=== PATIENT | male | born 1945 | race Caucasian/White ===

== ENCOUNTER 2024-12-27 06:17 | Day surgery (SDC) | payer MEDICARE, OTHER, SELFPAY ==
[2024-12-27 10:01] LABS: Glucose - Point of Care 160 mg/dl (70-99)
== END 2024-12-27 10:30 | disposition home or self-care (01) ==
LOC: GI 06:17
PROVIDERS: ATTENDING PHYSICIAN Specialist
DX: I48.91 Unspecified atrial fibrillation (principal); Z53.9 Procedure and treatment not carried out, unspecified reason; Z86.0101 Personal history of adenomatous and serrated colon polyps
CPT/HCPCS: G0105; 82962; 93005

== ENCOUNTER 2024-12-27 10:30 | Emergency (ER) | payer MEDICARE, OTHER, SELFPAY ==
[2024-12-27 10:48] VITALS: BP 148/72
--- NOTE | 2024-12-27 11:33 | ED.GENMED ---
History of Present Illness
<Anne-Marie Tidwell PA-C - Last Filed: 12/27/24 16:34>
General
Chief Complaint: Heart Rate Problem
Source: patient
Exam Limitations: none
Time Seen by Provider: 12/27/24 11:12
Nursing documentation reviewed up to this point in time: agreed with
History of Present Illness
History of Present Illness:
pt is a 79 y/o M with h/o CAD with stents remotely, htn, dNIDDM
here from GI suite after being found in afib with RVR today
pt started prep yesterday evening and then again the 2nd part this morning 4 am
pt says he went to have his colonoscopy today and when they hooked him up, he was in afib
he has no history and feels no ysmptoms
he was unaware that hi HR wa elevated
no lightheadedness, vomting, cp, sob
he feels a little dehydrated
used t be on blood thinners but d/c'd
followed by dr. corea from cardiology
Past History
<Anne-Marie Tidwell PA-C - Last Filed: 12/27/24 16:34>
Past History
ED Past Medical History: CAD, HTN, Hypercholesterolemia and NIDDM
ED Past Surgical History: Cardiac and Other (Rcarotid endarterectomy)
Review of Systems
<Anne-Marie Tidwell PA-C - Last Filed: 12/27/24 16:34>
Review of Systems
Allergies reviewed?: Yes
All Other Systems: Not applicable
Phy Exam
<Anne-Marie Tidwell PA-C - Last Filed: 12/27/24 16:34>
Physical Exam
Physical Exam:
GENERAL: Alert , in no apparent distress, awake and alert and in no distress
EYE: pupils equal and reactive
NECK: Supple
ENT: o/p clr, mmm.
CARDIAC: Irregularly irregular, tachycardic
LUNGS: Clear breath sounds bilaterally, no acute respiratory distress, no wheezes/rales/rhonchi
ABDOMEN: Soft, without focal tenderness, no r/g, no cvat, normal bowel sounds
NEUROLOGICAL: Alert and oriented, no focal neuro deficits
SKIN: Warm and dry, skin intact.
MUSCULOSKELETAL: No edema, well perfused. neg yousuf's sign
PSYCH: Normal and appropriate interaction.
Scores
<Anne-Marie Tidwell PA-C - Last Filed: 12/27/24 16:34>
[id number] Score for Afib Stroke Risk
Age in Years (65=0, 65-74=1, >/=75=2): > or = 75
Sex (Female=+1): Male
Congestive Heart Failure History (Yes=+1): No
Hypertension History (Yes=+1): Yes
Stroke/TIA/Thromboembolism History (Yes=+2): No
Vascular Disease History (Yes=+1): Yes
Diabetes Mellitus (Yes=+1): Yes
Score: 5
Anticoagulation Recommendations: Recommend anticoagulation (as validated in nonvalvular fib)
<Festus Tran MD - Last Filed: 12/27/24 12:43>
[id number] Score for Afib Stroke Risk
Score: 5
Anticoagulation Recommendations: Recommend anticoagulation (as validated in nonvalvular fib)
Course
<Anne-Marie Tidwell PA-C - Last Filed: 12/27/24 16:34>
Orders/Labs/Results
Orders:
Orders
12/27/24 10:36
EKG [Electrocardiogram (*1)] Urgent
Reason for Study: Atrial Fibrillation
EKG- Treatment ONCE
12/27/24 11:32
0.9% Sodium Chloride 1000 ml [Nss] 1,000 ml IV BOLUS
CR Chest Portable - 1 View Urgent
Comment:
Reason For Exam: new onset afib rvr
Reason Study Needs to be Portable: Unable to Transport
12/27/24 11:36
Comprehensive Metabolic Panel Urgent
Magnesium Urgent
NT-proBNP Urgent
TSH Reflex To Free T4 Urgent
12/27/24 11:37
Complete Blood Count/With Diff Urgent
Diltiazem HCl [Cardizem] 10 mg IV NOW STA
12/27/24 12:31
Metoprolol [Lopressor] 25 mg PO NOW STA
12/27/24 13:29
Case Management Consult ONCE
Case Management Consult: Other
12/27/24 13:37
Electrocardiogram (*1) Urgent
Reason for Study: Abnormal EKG
EKG- Treatment ONCE
12/27/24 13:52
Case Management Consult ONCE
Case Management Consult: Discharge Planning
12/27/24 15:10
Apixaban [Eliquis] 5 mg PO NOW STA
Abnormal Lab Results
12/27/24 12/27/24
11:36 11:37
RBC 4.51 L 10^6/uL
(4.70-6.10)
MCH 32.8 H pg
(27.0-31.0)
Absolute Neuts (auto) 8.4 H 10^3/uL
(1.4-6.5)
Absolute Lymphs (auto) 0.7 L 10^3/uL
(1.2-3.4)
Neutrophils % 88.7 H %
(42.2-75.2)
Lymphocytes % 7.6 L %
(20.5-51.1)
BUN 25 H mg/dl
(9-20)
Glucose 157 H mg/dl
(70-99)
Albumin 5.1 H g/dl
(3.5-5.0)
12/27/24 11:37
12/27/24 11:36
Vital Signs
Initial and Last Documented VS:
Initial Vital Signs
Temp Pulse Resp BP Pulse Ox
36.9 C 148 18 148/72 96
12/27/24 10:48 12/27/24 10:48 12/27/24 10:48 12/27/24 10:48 12/27/24 10:48
Last Documented Vital Signs
Temp Pulse Resp BP Pulse Ox
36.9 C 96 21 120/83 94
12/27/24 10:48 12/27/24 14:45 12/27/24 14:45 12/27/24 14:00 12/27/24 14:45
<Festus Tran MD - Last Filed: 12/27/24 12:43>
Orders/Labs/Results
Orders:
Orders
12/27/24 10:36
EKG [Electrocardiogram (*1)] Urgent
Reason for Study: Atrial Fibrillation
EKG- Treatment ONCE
12/27/24 11:32
0.9% Sodium Chloride 1000 ml [Nss] 1,000 ml IV BOLUS
CR Chest Portable - 1 View Urgent
Comment:
Reason For Exam: new onset afib rvr
Reason Study Needs to be Portable: Unable to Transport
12/27/24 11:36
Comprehensive Metabolic Panel Urgent
Magnesium Urgent
NT-proBNP Urgent
TSH Reflex To Free T4 Urgent
12/27/24 11:37
Complete Blood Count/With Diff Urgent
Diltiazem HCl [Cardizem] 10 mg IV NOW STA
12/27/24 12:31
Metoprolol [Lopressor] 25 mg PO NOW STA
12/27/24 13:29
Case Management Consult ONCE
Case Management Consult: Other
12/27/24 13:37
Electrocardiogram (*1) Urgent
Reason for Study: Abnormal EKG
EKG- Treatment ONCE
12/27/24 13:52
Case Management Consult ONCE
Case Management Consult: Discharge Planning
12/27/24 15:10
Apixaban [Eliquis] 5 mg PO NOW STA
Abnormal Lab Results
12/27/24 12/27/24
11:36 11:37
RBC 4.51 L 10^6/uL
(4.70-6.10)
MCH 32.8 H pg
(27.0-31.0)
Absolute Neuts (auto) 8.4 H 10^3/uL
(1.4-6.5)
Absolute Lymphs (auto) 0.7 L 10^3/uL
(1.2-3.4)
Neutrophils % 88.7 H %
(42.2-75.2)
Lymphocytes % 7.6 L %
(20.5-51.1)
BUN 25 H mg/dl
(9-20)
Glucose 157 H mg/dl
(70-99)
Albumin 5.1 H g/dl
(3.5-5.0)
12/27/24 11:37
12/27/24 11:36
Vital Signs
Initial and Last Documented VS:
Initial Vital Signs
Temp Pulse Resp BP Pulse Ox
36.9 C 148 18 148/72 96
12/27/24 10:48 12/27/24 10:48 12/27/24 10:48 12/27/24 10:48 12/27/24 10:48
Last Documented Vital Signs
Temp Pulse Resp BP Pulse Ox
36.9 C 96 21 120/83 94
12/27/24 10:48 12/27/24 14:45 12/27/24 14:45 12/27/24 14:00 12/27/24 14:45
<Anne-Marie Tidwell PA-C - Last Filed: 12/27/24 16:34>
MDM/Problems Addressed
Differential Diagnosis Includes:
afib rvr, dehydration
MDM/Problems Addressed:
79 y/o M
ho cad with stents, htn, hld, NIDDM
here with new onset afib no history after coloboscopy prep
no cp, sob
no lightheadedness
unknown onset
looks a little dry
othrwsie stable
no ischemic change son EKG
bnp normal
lytes ok
seen by dr tran
given 10 mg iv diltiazem with adequtae rate control
d/w dr. yanes who recommended metoprolol 25 mg tid and f/u in the office
Patient ambulated in the department well with a heart rate in the low 100s and no symptoms. Repeat EKG show note Dr. Tran. Case management consult placed regarding the Xarelto versus Eliquis choice. Ultimately plan on discharge with
anticoagulation and the metoprolol and close cardiology follow-up
Eliquis sent to pharmacy, first dose here
<Anne-Marie Tidwell PA-C - Last Filed: 12/27/24 16:34>
*Critical Care Note
Total Time (30-74mins, 75-104mins- exclusive of procedures): Not Applicable
ED Attending Note
<Anne-Marie Tidwell PA-C - Last Filed: 12/27/24 16:34>
-
Portions of this chart may have been created with voice recognition software.� Occasional wrong word or��sound alike� substitutions may have occurred due to the inherent limitations of voice recognition software.
<Festus Trna MD - Last Filed: 12/27/24 12:43>
ED Attending Note
Patient seen and examined by attending physician: Yes
I performed the substantive portion of visit, reviewed & personally made and approve the management plan that is documented in note by myself or GERARDO.: Yes
ED Attending Note:
Patient prepping for colonoscopy. Upon arrival was noted to be in A-fib RVR. Asymptomatic. No chest pain shortness of breath or other symptoms. Unknown onset. History of CAD. Currently on aspirin only
On exam patient is nontoxic in no distress. Tacky and irregular no murmur. Lungs clear and equal. Abdomen soft and nontender. Warm and dry. Grossly nonfocal. Perfusing well.
EKG A-fib RVR. Monitor A-fib RVR.
Rate control and anticoagulation warranted. Discussion on inpatient versus outpatient management with cardiology. Also discussed whether to continue aspirin with the DOAC
Discharge Plan
Departure
Patient Disposition: Home (Routine Discharge)
Date of Disposition: 12/27/24
Time of Disposition: 15:09
Patient with high blood pressure during this ER visit?: No
Condition: Fair
Discharge Problem:
Atrial fibrillation with rapid ventricular response
Instructions: Atrial Fibrillation (DC)
Prescriptions:
New
Eliquis 5 mg tablet
5 mg PO BID Qty: 60 0RF
metoprolol tartrate 25 mg tablet
25 mg PO TID Qty: 30 0RF
Referrals:
UNKNOWN - PT NOT,INTERVIEWE [Unknown Provider] -
Activity Restrictions/Additional Instructions:
You have a new abnormal heart rhythm called atrial fibrillation. You need to take your blood thinner daily. Try to avoid falling and hitting her head and if you do so please return to the ER for evaluation. If you start bleeding from your nose,
rectum, urine please come and get checked.
For better rate control try metoprolol tartrate 25 mg 3 times a day. You can take your blood pressure twice a day. If it is running low, 110 or lower systolic you can hold your amlodipine until you see cardiology. Please follow-up with them, they
should be reaching out for evaluation within the next couple of days. If you do not hear from them please call them.
take eliquis twice a day 5 mg
Interventions
Interventions:
*Risk Screen - Suicide Last Done: 12/27/24 10:48
*General Assessment Last Done: 12/27/24 10:48
*Neglect/Abuse Screening Last Done: 12/27/24 10:48
ED- Fall Risk Assessment Last Done: 12/27/24 15:35
*ED COVID-19 Vaccine History Last Done: 12/27/24 10:48
*Nursing Disposition Last Done: 12/27/24 15:35
ED- Cardiac Assessment Last Done: 12/27/24 12:23
ED- Pulmonary Assessment Last Done: 12/27/24 12:23
Discharge Date and Time
Discharge Date/Time: 12/27/24 15:35
Print Language: BELGIAN
[2024-12-27] MEDS: NSS 1000 IV (11:34)
[2024-12-27 11:45] LABS: % Basophils 0.3 % (0-2); % Eosinophils 0.2 % (0-6); % Immature Granulocytes 0.3 % (0-0.5); % Lymphocytes 7.6 % (20.5-51.1); % Monocytes 2.9 % (1.7-9.3); % Neutrophils 88.7 % (42.2-75.2); Absolute Lymphocytes 0.7 10^3/uL (1.2-3.4); Absolute Monocytes 0.3 10^3/uL (0.1-0.6); Absolute Neutrophils 8.4 10^3/uL (1.4-6.5); Hematocrit 42.2 % (39.0-52.0); Hemoglobin 14.8 g/dL (13.0-18.0); Mean Corp Hgb Conc. 35.1 g/dL (33.0-37.0); Mean Corpuscular Hgb 32.8 pg (27.0-31.0); Mean Corpuscular Volume 93.6 fL (80.0-94.0); Nucleated Red Blood Cells % 0 % (-); Platelet Count 222 10^3/uL (130-400); Red Blood Cell Count 4.51 10^6/uL (4.70-6.10); Red Cell Dist. Width 12.1 % (11.5-14.5); White Blood Cell Count 9.4 10^3/uL (4.8-10.8)
[2024-12-27 12:03] LABS: ALT (SGPT) 48 U/L (0-50); AST (SGOT) 35 U/L (17-59); Albumin 5.1 g/dl (3.5-5.0); Alkaline Phosphatase 40 U/L (38-126); Blood Urea Nitrogen 25 mg/dl (9-20); Calcium 9.7 mg/dl (8.4-10.2); Carbon Dioxide 23 mmol/L (22-30); Chloride 104 mmol/L (98-107); Glucose 157 mg/dl (70-99); Magnesium 2.1 mg/dl (1.6-2.3); Potassium 4.3 mmol/L (3.5-5.1); Sodium 140 mmol/L (135-145); Total Bilirubin 1.1 mg/dl (0.2-1.3); Total Protein 7.4 g/dl (6.3-8.2); eGFR > 60.00
[2024-12-27 12:09] LABS: NT-proBNP 108 pg/ml
[2024-12-27] MEDS: CARDIZEM 10 MG IV (12:10)
[2024-12-27] MEDS: LOPRESSOR 25 MG PO (12:36)
[2024-12-27 12:55] LABS: TSH Reflex To Free T4 1.55 uIU/ml (0.47-4.68)
[2024-12-27 13:00] VITALS: BP 128/88
[2024-12-27 13:39] VITALS: BP 146/74
[2024-12-27 14:00] VITALS: BP 120/83
[2024-12-27] MEDS: ELIQUIS 5 MG PO (15:16)
--- NOTE | 2024-12-27 15:26 | CM ---
CM following re: discharge planning.
CM consulted to check the aponte for Eliquis 5mg BID or Xarelto 10 mg Daily. [facility]ist requested MD magdiel sent. Eliquis 5mg BID aponte checked. $333.41 per month. Xarelto 10 mg - 331.42 per month.
Pt requested Eliquis and he stated he will afford the aponte and after meeting deductible will be 0.00 co-pay. Free 30 day coupon for Eliquis provided.
Reviewed pt's chart, met with pt and pt's spouse Annie at bedside.
Pt is a 79 year old male, admitted with primary concerns of Atrial fibrillation with rapid ventricular response.
Pt reports he lives with spouse 2SH, 1 step to enter, has 3 supportive children. Pt described himself as independent in all areas [employer]. No DME, VN or SNF history.
PCP: Mariah Cornelius
Pharmacy: [facility].
D/C plan: home with anticipated no needs. Spouse to transport.
No after care VN services indicated.
== END 2024-12-27 15:35 | disposition home or self-care (01) ==
LOC: EMR 10:30
PROVIDERS: Physician Assistant; EMERGENCY PHYSICIAN Emergency Medicine; FAMILY PHYSICIAN Family Medicine
DX: I48.91 Unspecified atrial fibrillation (principal); I25.10 Atherosclerotic heart disease of native coronary artery without angina pectoris; I10 Essential (primary) hypertension; E11.9 Type 2 diabetes mellitus without complications; E78.00 Pure hypercholesterolemia, unspecified; Z79.01 Long term (current) use of anticoagulants; Z95.5 Presence of coronary angioplasty implant and graft
CPT/HCPCS: 99283; 96374; 96361; 71045; 80053; 83735; 83880; 84443; 85025; 93005

== ENCOUNTER → 2025-01-15 09:14 | Outpatient (REF) | payer MEDICARE, OTHER, SELFPAY | LOC: HWRCS 09:14 | PROVIDERS: ATTENDING PHYSICIAN Nurse Practitioner; FAMILY PHYSICIAN Family Medicine | DX: I25.10 Atherosclerotic heart disease of native coronary artery without angina pectoris (principal); I35.0 Nonrheumatic aortic (valve) stenosis | CPT/HCPCS: 93306 ==

== ENCOUNTER 2025-01-30 06:35 | Inpatient (IN) | payer MEDICARE, OTHER, SELFPAY ==
[2025-01-30] VITALS (26 sets, daily range): BP systolic 94–173; BP diastolic 53–98; PULSE 112–128; BMI 24.8; BMI 23.7
--- NOTE | 2025-01-30 02:58 | ED.SKININJ ---
HPI-Injury
General
Chief Complaint: Head Injury
Source: patient and spouse
Exam Limitations: none
Time Seen by Provider: 01/30/25 02:14
Nursing documentation reviewed up to this point in time: agreed with
History of Present Illness-Injury
Is pt an associate of [facility]?: Yes
Initial Injury comments:
Pleasant 79-year-old male presents with fall. Patient has been having URI symptoms for the several days. He took Mucinex DM this evening. He went to bed. He noted. Up to go to the bathroom. He states he felt fine walking to the bathroom. He
had a large bowel movement consistent with loose stools. He states that he passed out. He hit his head and woke up on the floor. Patient is on Eliquis. He suffered an abrasion to his right forehead. He states that that is the only pain that he
has. He does feel dehydrated. Denies current nausea or vomiting.
Past History
Past History
ED Past Medical History: CAD, HTN, Hypercholesterolemia and NIDDM
ED Past Surgical History: Cardiac and Other (Rcarotid endarterectomy)
Review of Systems
Review of Systems
Allergies reviewed?: Yes
All Other Systems: ROS reviewed and negative except as documented in HPI and ROS
Constitutional: Reports no symptoms
EENT: Reports no symptoms
Respiratory: Reports other (Syncope)
Cardiac: Reports no symptoms
ABD/GI: Reports nausea and diarrhea
: Reports no symptoms
Musculoskeletal: Reports no symptoms
Skin: Reports no symptoms
Neurological: Reports no symptoms
Endocrine: Reports no symptoms
Hematologic/Lymphatic: Reports no symptoms
Psychiatric: Reports no symptoms
Phy Exam
General Physical Exam
General Presentation: well appearing and no apparent distress
General Skin: warm and dry
General Habitus: normal
General Mental: alert
General Hydration: appears well hydrated
ENT Exam
ENT Exam: EOMI, pharynx normal, neck supple and normocephalic
Eye Exam
Eye Exam: PERRL, cornea clear and conjunctiva normal
Cardiovascular Exam
Cardiovascular Exam: regular rate/rhythm, no edema, no murmur and normal peripheral pulses
Pulmonary Exam
Pulmonary Exam: lungs clear, no respiratory distress, no rales, no crackles, no rhonchi, no stridor, no wheezing and no cough
Gastrointestinal Exam
Gastrointestinal Exam: normal bowel sounds, non tender, soft, no organomegaly, no pulsatile mass and non distended
Neurological Exam
Neurological Exam: alert, oriented x3, no motor deficits and speech normal
Musculoskeletal Exam
Musculoskeletal Exam: full ROM and no edema
Skin Exam
Skin Exam: normal color, warm/dry, no petechia and other (Abrasion to right forehead)
Psychiatric Exam
Psychiatric Exam: normal mood/affect
Course
Orders/Labs/Results
Orders:
Orders
01/30/25 02:22
CT Cervical Spine W/o Iv Contr Urgent
Comment:
Reason For Exam: fall on thinner
CT Head W/o Iv Contrast Urgent
Comment:
Reason For Exam: fall on thinner
01/30/25 02:57
0.9% Sodium Chloride 1000 ml [Nss] 1,000 ml IV BOLUS
01/30/25 03:03
Complete Blood Count/With Diff Urgent
Comprehensive Metabolic Panel Urgent
01/30/25 03:41
Orthostatic VS- Treatment ONCE
01/30/25 03:42
Electrocardiogram (*1) Urgent
Reason for Study: Syncope
EKG- Treatment ONCE
01/30/25 04:16
Urinalysis Reflex To Culture Urgent
Date Specimen was Collected: 01/30/25
Time Specimen was Collected: 04:15
Urine Microscopic Reflex Cult Urgent
01/30/25 04:29
Electrocardiogram (*1) Urgent
Reason for Study: Atrial Fibrillation
EKG- Treatment ONCE
01/30/25 04:33
Diltiazem HCl [Cardizem] 20 mg IV NOW STA
01/30/25 04:45
Diltiazem 125 mg/125 ml Nss [Cardizem] 125 mg in 125 ml IV PER PROTOCOL
Initial dose in mg/hr, then titrate:: 5
Titrate to keep:: Heart rate 80-100 bpm
Titrate by mg/hr:: 5 mg/hr
Frequency of titrations (minutes):: 15
Maximum dose in mg/hr:: 15
Abnormal Lab Results
01/30/25 01/30/25
03:03 04:16
RBC 4.16 L 10^6/uL
(4.70-6.10)
Hct 38.7 L %
(39.0-52.0)
MCH 33.2 H pg
(27.0-31.0)
Absolute Lymphs (auto) 0.8 L 10^3/uL
(1.2-3.4)
Absolute Monos (auto) 0.7 H 10^3/uL
(0.1-0.6)
Lymphocytes % 12.9 L %
(20.5-51.1)
Monocytes % 11.5 H %
(1.7-9.3)
BUN 27 H mg/dl
(9-20)
Glucose 146 H mg/dl
(70-99)
ALT 54 H U/L
(0-50)
Urine Ketones 1+ A
(Negative)
Ur Occult Blood Reflex 1+ A
(Negative)
Urine Albumin (Reflex) 2+ A
(Neg - Trace)
01/30/25 03:03
01/30/25 03:03
Vital Signs
Initial and Last Documented VS:
Initial Vital Signs
Temp Pulse Resp BP Pulse Ox
98.4 F 55 16 145/55 95
01/30/25 01:53 01/30/25 01:53 01/30/25 01:53 01/30/25 01:53 01/30/25 01:53
Last Documented Vital Signs
Temp Pulse Resp BP Pulse Ox
98.4 F 126 13 124/74 94
01/30/25 01:53 01/30/25 05:00 01/30/25 05:00 01/30/25 05:00 01/30/25 05:00
*Critical Care Note
Total Time (30-74mins, 75-104mins- exclusive of procedures): Not Applicable
Update Note
Update Note:
CT HEAD AND CERVICAL
IMPRESSION:
HEAD:
No acute hemorrhage, herniation, or hydrocephalus. Moderate periventricular hypodensities, likely the sequela of small vessel ischemic disease.
No calvarial fracture.
The visualized paranasal sinuses and mastoid air cells are clear.
CERVICAL:
No acute fracture or traumatic malalignment.
No significant prevertebral edema.
Multilevel degenerative changes of the cervical spine. If there are persistent neurologic symptoms, consider MRI for further characterization.
Case finalized on Jan 30 2025 3:20AM ET
Patient got up to go to the bathroom with the assistance of nursing. He returned in A-fib with RVR. Heart rate was in the 120s to 140s. Patient felt lightheaded and dizzy EKG was performed. Patient given Cardizem.
Patient has been in and out of atrial fibrillation. He still feels lightheaded when seated. Given that his symptoms returned as soon as he stood up, I do not feel that it is safe to send him home. I feel that he needs to continue on the Cardizem
and get IV hydration.
Patient to be admitted to the hospitalist service.
ED Attending Note
-
Portions of this chart may have been created with voice recognition software.� Occasional wrong word or��sound alike� substitutions may have occurred due to the inherent limitations of voice recognition software.
Discharge Plan
Departure
Patient Disposition: Admit
Date of Disposition: 01/30/25
Time of Disposition: 05:19
Admit to: Telemetry
Presentation/result/management discussed w/ accepting MD/DO: Hospitalist
Condition: Good
Discharge Problem:
Syncope and collapse, Paroxysmal A-fib, Acute dehydration, Abrasion of scalp, Closed head injury
Prescriptions:
No Action
Eliquis 5 mg tablet
5 mg PO BID Qty: 60 0RF
metformin 500 mg Tablet
500 mg PO DAILY
atorvastatin 80 mg Tablet
80 mg PO DAILY
amlodipine 5 mg Tablet
5 mg PO BID
terazosin 2 mg Capsule
2 mg PO DAILY
candesartan 32 mg Tablet
32 mg PO DAILY
cholecalciferol (vitamin D3) [Vitamin D3] 25 mcg (1,000 unit) Tablet
25 mcg PO DAILY
aspirin 81 mg Capsule
81 mg PO BID
metoprolol tartrate 25 mg tablet
25 mg PO BID
Referrals:
Alejandro Cornelius MD [Family Provider] -
Interventions
Interventions:
*Risk Screen - Suicide Last Done: 01/30/25 01:53
*General Assessment Last Done: 01/30/25 02:14
*Neglect/Abuse Screening Last Done: 01/30/25 01:53
*ED- Fall Risk Assessment Last Done: 01/30/25 01:53
*ED COVID-19 Vaccine History Last Done: 01/30/25 01:53
ED-Skin Assessment Last Done: 01/30/25 02:13
Discharge Date and Time
Print Language: JAPANESE
[2025-01-30] MEDS: NSS 1000 IV ×2 (03:06→05:25)
[2025-01-30 03:18] LABS: % Basophils 0.3 % (0-2); % Eosinophils 1.6 % (0-6); % Immature Granulocytes 0.3 % (0-0.5); % Lymphocytes 12.9 % (20.5-51.1); % Monocytes 11.5 % (1.7-9.3); % Neutrophils 73.4 % (42.2-75.2); Absolute Eosinophils 0.1 10^3/uL (0-0.7); Absolute Lymphocytes 0.8 10^3/uL (1.2-3.4); Absolute Monocytes 0.7 10^3/uL (0.1-0.6); Absolute Neutrophils 4.5 10^3/uL (1.4-6.5); Hematocrit 38.7 % (39.0-52.0); Hemoglobin 13.8 g/dL (13.0-18.0); Mean Corp Hgb Conc. 35.7 g/dL (33.0-37.0); Mean Corpuscular Hgb 33.2 pg (27.0-31.0); Mean Platelet Volume 9.5 fL (7.4-10.4); Nucleated Red Blood Cells % 0 % (-); Platelet Count 183 10^3/uL (130-400); Red Blood Cell Count 4.16 10^6/uL (4.70-6.10); Red Cell Dist. Width 12.3 % (11.5-14.5); White Blood Cell Count 6.1 10^3/uL (4.8-10.8)
[2025-01-30 03:32] LABS: ALT (SGPT) 54 U/L (0-50); AST (SGOT) 44 U/L (17-59); Albumin 4.6 g/dl (3.5-5.0); Alkaline Phosphatase 40 U/L (38-126); Blood Urea Nitrogen 27 mg/dl (9-20); Calcium 9.3 mg/dl (8.4-10.2); Carbon Dioxide 26 mmol/L (22-30); Chloride 100 mmol/L (98-107); Estimated Creatinine Clearance 61 ml/min; Glucose 146 mg/dl (70-99); Potassium 4.2 mmol/L (3.5-5.1); Sodium 137 mmol/L (135-145); Total Bilirubin 0.9 mg/dl (0.2-1.3); Total Protein 7.1 g/dl (6.3-8.2); eGFR > 60.00
[2025-01-30] MEDS: CARDIZEM 20 MG IV (04:38)
[2025-01-30] MEDS: CARDIZEM 125 IV (04:51)
[2025-01-30 04:55] LABS: Urine Albumin 2+ (Neg - Trace); Urine Bilirubin Negative (Negative); Urine Character Clear (Clear); Urine Color Yellow; Urine Glucose Negative (Negative); Urine Ketone 1+ (Negative); Urine Leukocyte Negative (Negative); Urine Nitrite Negative (Negative); Urine Occult Blood 1+ (Negative); Urine Specific Gravity 1.015 (<1.030); Urine Urobilinogen Negative (Neg - 1+)
[2025-01-30 05:43] LABS: Urine Granular Cast 0-2 /LPF (0)
[2025-01-30 05:45] LABS: Urine Bacteria Few (Negative); Urine Mucus Moderate; Urine Red Blood Cell 0-2 /HPF (0-2)
[2025-01-30 05:56] LABS: COVID-19 Antigen Positive (Negative)
--- NOTE | 2025-01-30 06:08 | HPS.HSE ---
Family Physician
-
Family Physician: Alejandro Cornelius
Chief Complaint
-
Syncope
History of Present Illness
Patient is a 79y M with PMH significant for ASCVD, hypertension and A-Fib who presents to ED for evaluation after syncopal episode this AM. Patient states that he has had cough / respiratory symptoms for about one week. He has been taking
Mucinex DM with minimal improvement in his symptoms. No fevers / chills. No dyspnea. No known sick contacts.
This evening, patient woke with the urge to move his bowels. He states that he sat on the toilet and had an episode of diarrhea. He did not feel lightheaded, dizzy, SOB, etc.
The next thing he recalls is waking on the floor. He notes some discomfort in the head and some mild abdominal discomfort which he attributes to coughing.
He presented to the ED for further evaluation.
While in the ED, patient was noted to go from NSR to A-Fib with RVR. He is now on Cardizem infusion and resting comfortably.
Patient newly diagnosed with A-Fib on 12/27 when it was incidentally noted on monitor prior to a colonoscopy.
He was started on metoprolol and Eliquis in the ED and has followed up with Cardiology.
Medical History
Past Medical History
Past Medical History: Reports Other
Additional Past Medical History:
ASCVD (CAD, Carotid Disease)
Hypertension
DM-II
Colon Polyps
Paroxysmal Atrial Fibrillation
Past Surgical History: Reports Other
Additional Past Surgical History:
Descending Coronary Artery Atherectomy
PTCA with Stents
Right CEA
Cataracts
Social History
Tobacco: Former Smoker (Quit smoking 35 years ago. Approx 20 pack years total use.)
Alcohol: Occasional
Drug: None
Family History
Family History: Not pertinent
Allergies / Home Medications
Allergies reflects when Allergies were last updated in [employer].
Home Medications with original date entered in [employer]
Allergy/Medication List:
Allergies
Allergy/AdvReac Type Severity Reaction Status Date / Time
No Known Allergies Allergy Unverified 01/30/25 01:53
Home Medications
apixaban 5 mg tablet (Eliquis) 5 mg PO BID #60 tabs 12/27/24
amlodipine 5 mg tablet 5 mg PO BID 01/30/25
aspirin 81 mg capsule 81 mg PO BID 01/30/25
atorvastatin 80 mg tablet 80 mg PO DAILY 01/30/25
candesartan 32 mg tablet 32 mg PO DAILY 01/30/25
cholecalciferol (vitamin D3) 25 mcg (1,000 unit) tablet (Vitamin D3) 25 mcg PO DAILY 01/30/25
metformin 500 mg tablet 500 mg PO DAILY 01/30/25
metoprolol tartrate 25 mg tablet 25 mg PO BID 01/30/25
terazosin 2 mg capsule 2 mg PO DAILY 01/30/25
Review of Systems
-
History Source: Patient
A 12 point ROS was completed and negative except as noted: Yes
Constitutional: Reports Fatigue; Denies Fever or Chills
EENT: Denies Sore Throat
Respiratory: Reports Cough; Denies Trouble Breathing
Cardiac: Reports Syncope; Denies Chest Pain or Palpitations
Abdomen/GI: Reports Diarrhea; Denies Abdominal Pain, Nausea or Vomiting
Musculoskeletal: Denies Joint Pain or Edema
Neurological: Denies Dizzy, Headache, Weakness or Numbness
Psych: Denies Depression or Anxiety
Physical Exam
Vital Signs
Vital Signs
Temp Pulse Resp BP Pulse Ox
98.4 F 109 25 123/75 92
01/30/25 01:53 01/30/25 06:00 01/30/25 06:00 01/30/25 06:00 01/30/25 06:00
Physical Exam
General: Other (79y M in no acute distress.)
HEENT: Moist mucous membranes, PERRLA and Other (Abrasion along the R superior scalp. No bleeding.)
Respiratory: Clear; No Wheezes, Rales or Rhonchi
Cardiac: S1/S2 and Irregular Rhythm; No Murmur
GI: Soft, Non Tender, Non Distended and Normal Bowel Sounds
Musculoskeletal: No Clubbing, No Cyanosis and No Edema
Neuro: AO x 3 and Nonfocal/grossly intact
Laboratory Results
-
01/30/25 03:03
01/30/25 03:03
Laboratory Results
Total Bilirubin 0.9 mg/dl (0.2-1.3) 01/30/25 03:03
AST 44 U/L (17-59) 01/30/25 03:03
ALT 54 U/L (0-50) H 01/30/25 03:03
Alkaline Phosphatase 40 U/L (38-126) 01/30/25 03:03
Impression/Plan
-
A/P: Patient is a 79y M with PMH significant for ASCVD, hypertension and A-Fib who presents to ED for evaluation s/p syncopal event at home in the middle of the night.
Syncope
- Admit to monitored bed for further evaluation and treatment.
- Suspect vasovagal episode given occurrence during bowel movement.
- Initially in NSR here in ED but then converted to A-Fib with RVR (see below).
- CT head and C-Spine unremarkable in the ED.
- Hold Eliquis acutely / for 24 hours.
- Monitor for any new complaints / focal neurologic changes / etc.
- Repeat [employer] imaging if any new issues / changes in exam.
Atrial Fibrillation with Rapid Ventricular Response
- IV diltiazem started in the ED. Continue and titrate as needed.
- Continue usual metoprolol.
- Resume Eliquis after 24 hours if no new neurologic issues as noted above.
- Cardiology evaluation.
- Had Echo done earlier this month which showed normal LVEF and mild - moderate .
COVID-19
- Cough illness x 1 week. COVID positive in the ED.
- Follow proper precautions.
- Supportive care at this time given duration of symptoms, not febrile / hypoxemic.
- Follow for any changes.
ASCVD
- Stable. No chest pain or dyspnea.
- Continue current CV med regimen including ASA, statin, etc.
Benign Hypertension
- BP on the lower side after A-Fib / Cardizem gtt.
- Continue metoprolol. Hold other BP agents acutely.
- Adjust regimen / resume usual meds when appropriate.
DM-II
- Stable. Hold PO medications acutely.
- Follow glucose and cover with SSI as needed.
- Update A1C.
DVT Prophylaxis: SCDs
Code Status: Full
--- NOTE | 2025-01-30 07:37 | W.PN.HOSP.TC ---
Today's Communication/Plan
-
See plan
Assessment / Plan
Assessment / Plan
Physical Exam
General: Not in acute distress
HEENT: Moist mucous membranes, Abrasion along the right superior scalp.
Respiratory: Clear to Auscultation Bilaterally
Cardiac: S1/S2 and Irregular Rhythm
GI: Soft, Non Tender, Non Distended and Normal Bowel Sounds
Musculoskeletal: No Cyanosis and No Edema
Neuro: AAO x 3 and Nonfocal/grossly intact
Assessment/Plan
79y M with PMH significant for ASCVD, hypertension and A-Fib who presented to ED for evaluation after syncopal episode right after having diarrhea. Patient stated that he has had cough / respiratory symptoms for about one week. He had been
taking Mucinex DM with minimal improvement in his symptoms. No fevers / chills. No dyspnea. No known sick contacts. On the day of presentation, patient woke with the urge to move his bowels. He stated that he sat on the toilet and had an episode
of diarrhea but he did not feel lightheaded, dizzy, SOB, etc. The next thing he recalls is waking on the floor. He noted some discomfort in the head and some mild abdominal discomfort which he attributes to coughing. He presented to the ED for
further evaluation. While in the ED, patient was noted to go from NSR to A-Fib with RVR. He was started on Cardizem infusion.
Patient newly diagnosed with A-Fib on 12/27 when it was incidentally noted on monitor prior to a colonoscopy.
He was started on metoprolol and Eliquis in the ED and has followed up with Cardiology.
Syncope
- Suspect vasovagal episode given occurrence during bowel movement.
- Initially in NSR here in ED but then converted to A-Fib with RVR (see below).
- CT head and C-Spine unremarkable in the ED.
- Monitor for any new complaints / focal neurologic changes / etc.
- Repeat [employer] imaging if any new issues / changes in exam.
Atrial Fibrillation with Rapid Ventricular Response
- IV diltiazem started in the ED. Continue and titrate as needed.
- Toprol XL 25 mg daily starting 01/31/2025 (instead of home short-acting Metoprolol)
- Continue Eliquis 5 mg BID
- Cardiology evaluation.
- Had Echo done earlier this month which showed normal LVEF and mild - moderate .
COVID-19
Recent cough illness x 1 week prior to arrival
- Cough illness x 1 week. COVID positive in the ED.
- Follow proper precautions.
- Supportive care at this time given duration of symptoms, not febrile / hypoxemic.
- Follow for any changes.
ASCVD
- Stable. No chest pain or dyspnea.
- Continue current CV med regimen including ASA, statin, etc.
Benign Hypertension
- BP on the lower side after A-Fib / Cardizem gtt.
- Continue metoprolol. Hold other BP agents acutely.
- Adjust regimen / resume usual meds when appropriate.
DM-II
- Stable. Hold PO medications acutely.
- Follow glucose and cover with SSI as needed.
- Update A1C.
DVT Prophylaxis: SCDs. Eliquis.
Code Status: Full Code
Anticipated Discharge: > 48 hours
Subjective/Interval History
-
Date of Service: January 30, 2025
Patient was seen and examined. He denied any dizziness, chest pain or any other symptoms or complaints.
Objective Data
-
Labs:
Laboratory Results
01/30/25
03:03
WBC 6.1
Hgb 13.8
Hct 38.7 L
Plt Count 183
Sodium 137
Potassium 4.2
Chloride 100
Carbon Dioxide 26
BUN 27 H
Creatinine 1.0
Glucose 146 H
Calcium 9.3
Total Bilirubin 0.9
AST 44
ALT 54 H
Alkaline Phosphatase 40
Vital Signs:
Vital Signs
Temp Pulse Resp BP Pulse Ox
98.7 F 118 18 144/83 95
01/30/25 06:38 01/30/25 07:00 01/30/25 07:00 01/30/25 07:00 01/30/25 07:00
I&O
01/29/25 01/30/25 01/31/25
06:59 06:59 06:59
Output Total 410 / 410
Balance -410 / -410
[2025-01-30 07:55] LABS: Glucose - Point of Care 129 mg/dl (70-99)
--- NOTE | 2025-01-30 08:15 | PTCARENOTE ---
Patient received from the ER. Patient able to stand and pivot to bed, Orthostatic VS obtained and charted. Patient currently on Cardizem gtt @ 15mg/hr for HR 80-100, will titrate as tolerated. IVF running through IV, D/C'd after bag. Skin
assessment performed with second RN, skin intact aside from abrasion on forhead from fall. Currently NPO, awaiting cardiology consult. Admission questions done. Oriented to room. Call monte in reach.
[2025-01-30] MEDS: TYLENOL 650 MG PO ×2 (09:01→20:10)
[2025-01-30] MEDS: LIPITOR 80 MG PO (09:02)
[2025-01-30] MEDS: LOPRESSOR 25 MG PO (09:02)
[2025-01-30] MEDS: TESSALON PERLES 200 MG PO (09:03)
--- NOTE | 2025-01-30 10:18 | PTCARENOTE ---
Addendum entered by Benjie Mitchell RN 01/30/25 16:23:
Hospitalist and Cardiology made aware.
Original Note:
Patient with quick drop in HR on Cardizem gtt, infusion off at this time.
[2025-01-30 12:03] LABS: Glucose - Point of Care 113 mg/dl (70-99)
--- NOTE | 2025-01-30 12:37 | CON.CAR ---
Addendum entered and electronically signed by eRagan New MD 01/30/25 13:58:
I saw and examined the patient.
The Scrap Sawyer's note was reviewed and I agree with the note.
Comment:
GEN: No distress, awake, Ox3
HEENT: supple, anicteric, mmm
LUNGS: scatt rhonchi
CV: irreg, S1/S2, 1/6 syst LSB, no gallop
ABD: soft, BS+, NT/ND
EXT: No edema
NEURO: Gross non-focal
SKIN: No rash
Plan:
79-year-old male with past medical history of known paroxysmal atrial fibrillation, mild to moderate aortic stenosis, coronary artery disease, peripheral vascular disease, hypertension, diabetes and hyperlipidemia presents with an episode of near
syncope. He was having several days of URI symptoms and suddenly had an episode while passing his bowels that he ended up on the floor. Head CT was unremarkable. Upon arrival in the emergency room he had A-fib with rapid ventricular rate. He has
been on Eliquis at home.
Recent echo with LVEF 55 to 60%, mild MR, mild to moderate aortic stenosis mean gradient of 18, mild AI.
His ventricular rates remain very variable. Would start Toprol 25 mg p.o. daily and titrate. Would remain off Cardizem drip for now.
Continue supportive care for COVID symptoms. Continue Eliquis.
Continue to follow on telemetry
Original Note:
Consultation
Consultation Request
Date/Time Consultation Requested: 01/30/25
Date/Time Consultation Performed: 01/30/25
Requesting Provider: Dr. Parks
Performing Provider: Dr. New
Reason for Consultation: Afib with RVR
Medical History
-
History of Present Illness:
Patient came to ER last night after an episode of syncope at home and was admitted prompting cardiology consultation. Patient has had URI symptoms for the last week and then last evening he was on the toilet and had diarrhea and when he stood up
the next thing he remembers is waking up on the floor. He came to ER with an abrasion on his head and CT was negative for acute intracranial abnormality, but there is evidence of mild atrophy. Patient was initially in SR in the ER and then
after using the bathroom he was noted to be in A-fib with RVR, but was reportedly asymptomatic. Patient was initially diagnosed with A-fib after prepping for colonoscopy back in 12/27/24 and was asymptomatic at that time as well. Patient was
started on Eliquis at that time. Patient was also started on Lopressor 25 mg 3 times daily at that time but reports he is now taking Lopressor 25 mg daily. Orthostatic vital signs since admission reviewed by me were positive, but patient was
asymptomatic.
PMH:
Paroxysmal A-fib
Chronic Eliquis OAC
Mild to moderate peak/mean 34/18 mmHg and DEBBIE 1.4 cm sq
CAD
s/p rotational atherectomy LAD 1992
s/p Xience AN to RCA and PLB 2008
s/p right CEA 11/2012
HTN
DM 2
Hyperlipidemia
PAD with claudication
Past Medical History
Past Medical History: Other (in HPI)
Past Surgical History: Cardiac (PCI, right CEA)
Social History
Tobacco: Former Smoker (stopped smoking cigarettes, but still smokes cigars)
Alcohol: Occasional (Once a month or less)
Drug: None
Personal:
Living: With Family
Employment: Retired
Family History
Family History: Cancer and Hypertension
Allergies / Home Medications
Allergy/AdvReac Type Severity Reaction Status Date / Time
No Known Allergies Allergy Unverified 01/30/25 01:53
�Medication �Instructions �Recorded �Confirmed �Type
apixaban 5 mg tablet (Eliquis) 5 mg PO BID #60 tabs 12/27/24 01/30/25 Rx
amlodipine 5 mg tablet 5 mg PO BID 01/30/25 01/30/25 History
aspirin 81 mg capsule 81 mg PO BID 01/30/25 01/30/25 History
atorvastatin 80 mg tablet 80 mg PO DAILY 01/30/25 01/30/25 History
candesartan 32 mg tablet 32 mg PO DAILY 01/30/25 01/30/25 History
cholecalciferol (vitamin D3) 25 25 mcg PO DAILY 01/30/25 01/30/25 History
mcg (1,000 unit) tablet (Vitamin
D3)
metformin 500 mg tablet 500 mg PO DAILY 01/30/25 01/30/25 History
metoprolol tartrate 25 mg tablet 25 mg PO BID 01/30/25 01/30/25 History
terazosin 2 mg capsule 2 mg PO DAILY 01/30/25 01/30/25 History
Review of Systems
-
History Source: Patient and Family ( )
All other systems: Negative unless noted
Physical Exam
Vital Signs
Temp Pulse Resp BP Pulse Ox
98.4 F 63 17 98/55 93
01/30/25 11:50 01/30/25 10:45 01/30/25 10:45 01/30/25 10:27 01/30/25 10:45
GEN: NAD. AAOx3
HEENT: EOMI, MMM, abrasion on forehead
LUNGS: RA. No audible wheeze
CV: Afib on tele. Irreg irreg, S1/S2, no murmur
ABD: ND
EXT: No clubbing, cyanosis, lesions or edema B/L
NEURO: Gross non-focal
SKIN: Warm, dry and pink. No rash
Lab Results
01/30/25 03:03
01/30/25 03:03
Impression / Plan
-
PCP: Dr. Cornelius
Cardiology: Dr. Tristan Miranda
Impression:
Admitted with syncope 01/29/2025
A-fib with RVR
Orthostatic by vital signs
Paroxysmal A-fib
Chronic Eliquis OAC
Mild to moderate peak/mean 34/18 mmHg and DEBBIE 1.4 cm sq
CAD
s/p rotational atherectomy LAD 1992
s/p Xience AN to RCA and PLB 2008
s/p right CEA 11/2012
HTN
DM 2
Hyperlipidemia
PAD with claudication
Echo 01/15/2025: EF 55 to 60%, mild MR, mild to moderate peak/mean 34/18 mmHg and DEBBIE 1.4 cm sq, mild aortic regurgitation, mild TR
Plan:
-Patient came to ER last night after an episode of syncope at home and was admitted prompting cardiology consultation. Patient has had URI symptoms for the last week and then last evening he was on the toilet and had diarrhea and when he stood
up the next thing he remembers is waking up on the floor. He came to ER with an abrasion on his head and CT was negative for acute intracranial abnormality, but there is evidence of mild atrophy. Patient was initially in SR in the ER and then
after using the bathroom he was noted to be in A-fib with RVR, but was reportedly asymptomatic. Patient was initially diagnosed with A-fib after prepping for colonoscopy back in 12/27/24 and was asymptomatic at that time as well. Patient was
started on Eliquis at that time. Patient was also started on Lopressor 25 mg 3 times daily at that time but reports he is now taking Lopressor 25 mg daily. Orthostatic vital signs since admission reviewed by me were positive, but patient was
asymptomatic.
-ECGs reviewed by me, initially NSR, but then A-fib with RVR. Telemetry also reviewed by me shows ongoing A-fib but now heart rates are in the 70s.
-Remains in A-fib, but ventricular rate is now controlled. Initially rate was rapid and Cardizem gtt 15 mg ran overnight, but then an episode of abrupt slowing earlier today that was not associated with pauses or rhythm change prompting d/c of
Cardizem gtt.
-Patient ordered Lopressor 25 mg BID, but tells me he is taking Lopressor 25 mg daily at home. Lopressor is not a daily med, will transition to Toprol XL 25 mg daily starting 01/31/2025
-Cont Eliquis 5 mg BID (age 79, Cre 1.0)
-Would not attempt rhythm control at this time, but if he spontaneously converts to SR could consider adding AAD. Reviewed with patient and that if he remains in A-fib following resolution of COVID symptoms could pursue an outpatient CV.
-Patient is orthostatic by vital signs: Supine BP 143/67, sitting BP 138/72, standing BP 94/64, but he is asymptomatic. He has received 2 L IVF's.
-Patient was initially n.p.o., but I added a regular diet, ordered by me 01/30/2025
--- NOTE | 2025-01-30 15:15 | CM ---
Patient with Dx syncope, new Afib, COVID +. Room air. Receiving Cardizem gtt.
Per nurse Ambrocio, patient is currently asleep.
Spoke with patient's Dorita;
the patient resides with his in a split level house with 1 outside step & 4 + 8 stairs up to bedroom.
The patient was independent in ADLs and ambulation without using an assistive device.
He was active, driving and liked being outside working in the yard.
The patient has no DME, prior VN or SNF.
PCP - Alejandro Cornelius
Pharmacy - [facility]
No CM d/c needs identified.
Plan home.
[2025-01-30] MEDS: TOPROL XL 25 MG PO (15:32)
[2025-01-30 17:52] LABS: Glucose - Point of Care 171 mg/dl (70-99)
[2025-01-30] MEDS: ELIQUIS 5 MG PO (20:10)
[2025-01-30] MEDS: LOW STRENGTH ASPIRIN 81 MG PO (21:28)
[2025-01-30 21:43] LABS: Glucose - Point of Care 107 mg/dl (70-99)
[2025-01-30] MEDS: LOPRESSOR 2.5 MG IV (23:28)
[2025-01-31] VITALS (13 sets, daily range): BP systolic 98–159; BP diastolic 60–104; PULSE 101–138; BMI 23.3
[2025-01-31 04:52] LABS: Hematocrit 38.6 % (39.0-52.0); Hemoglobin 14.1 g/dL (13.0-18.0); Mean Corp Hgb Conc. 36.5 g/dL (33.0-37.0); Mean Corpuscular Hgb 33.6 pg (27.0-31.0); Mean Corpuscular Volume 91.9 fL (80.0-94.0); Mean Platelet Volume 9.1 fL (7.4-10.4); Platelet Count 188 10^3/uL (130-400); Red Cell Dist. Width 12.2 % (11.5-14.5); White Blood Cell Count 4.2 10^3/uL (4.8-10.8)
[2025-01-31 05:27] LABS: Blood Urea Nitrogen 21 mg/dl (9-20); Carbon Dioxide 25 mmol/L (22-30); Chloride 105 mmol/L (98-107); Estimated Creatinine Clearance 68 ml/min; Glucose 105 mg/dl (70-99); Magnesium 1.9 mg/dl (1.6-2.3); Potassium 4.2 mmol/L (3.5-5.1); Sodium 139 mmol/L (135-145); eGFR > 60.00
--- NOTE | 2025-01-31 05:49 | PTCARENOTE ---
Received pt at change of shift. Pt HR at start of shift was 80s-90s and increased to 110s-130s. Notified [employer]. IV Lopressor 2.5 mg ordered and administered. Pt asymptomatic. Resting in bed with call monte in reach.
[2025-01-31] MEDS: TOPROL XL 25 MG PO (07:57)
[2025-01-31] MEDS: TYLENOL 650 MG PO ×2 (07:57→19:39)
[2025-01-31] MEDS: ELIQUIS 5 MG PO ×2 (07:57→19:39)
[2025-01-31] MEDS: LIPITOR 80 MG PO (07:57)
--- NOTE | 2025-01-31 08:05 | PTCARENOTE ---
Patient received from restaurant shift supervisor. Patient resting comfortably in bed. AAO, VSS although HR still >100. No events noted overnight. Continued complaints of neck pain, see MAR. Currently on room air. Cardizem continues to be off, trying to
control by other means. OOB to chair later today. Awaiting cardiology input. No further testing at this time. Call monte in reach.
[2025-01-31 08:16] LABS: Glucose - Point of Care 107 mg/dl (70-99)
[2025-01-31] MEDS: LOPRESSOR 5 MG IV ×3 (09:25→18:35)
[2025-01-31 10:19] LABS: Glycohemoglobin (HgbA1c) 6.2 % (4.0-5.6)
--- NOTE | 2025-01-31 12:18 | W.PN.HOSP.TC ---
Today's Communication/Plan
-
A-Fib with RVR at times still -- IV Lopressor was given
Continue to monitor, continue Toprol XL (do not increase due to hypotension concern) and continue prn IV Lopressor
Assessment / Plan
Assessment / Plan
Physical Exam
General: Not in acute distress
HEENT: Moist mucous membranes, Abrasion along the right superior scalp.
Respiratory: Clear to Auscultation Bilaterally
Cardiac: S1/S2 and Irregular Rhythm
GI: Soft, Non Tender, Non Distended and Normal Bowel Sounds
Musculoskeletal: No Cyanosis and No Edema
Neuro: AAO x 3 and Nonfocal/grossly intact
Assessment/Plan
79y M with PMH significant for ASCVD, hypertension and A-Fib who presented to ED for evaluation after syncopal episode right after having diarrhea. Patient stated that he has had cough / respiratory symptoms for about one week. He had been
taking Mucinex DM with minimal improvement in his symptoms. No fevers / chills. No dyspnea. No known sick contacts. On the day of presentation, patient woke with the urge to move his bowels. He stated that he sat on the toilet and had an episode
of diarrhea but he did not feel lightheaded, dizzy, SOB, etc. The next thing he recalls is waking on the floor. He noted some discomfort in the head and some mild abdominal discomfort which he attributes to coughing. He presented to the ED for
further evaluation. While in the ED, patient was noted to go from NSR to A-Fib with RVR. He was started on Cardizem infusion.
Patient newly diagnosed with A-Fib on 12/27 when it was incidentally noted on monitor prior to a colonoscopy.
He was started on metoprolol and Eliquis in the ED and has followed up with Cardiology.
Syncope
- Suspect vasovagal episode given occurrence during bowel movement.
- Initially in NSR here in ED but then converted to A-Fib with RVR (see below).
- CT head and C-Spine unremarkable in the ED.
- Monitor for any new complaints / focal neurologic changes / etc.
- Repeat [employer] imaging if any new issues / changes in exam.
Atrial Fibrillation with Rapid Ventricular Response
- IV diltiazem started in the ED -- now off of it
- Toprol XL 25 mg daily starting 01/31/2025 (instead of home short-acting Metoprolol) -- still with tachycardia needing prn IV Lopressor
- Continue Eliquis 5 mg BID
- Cardiology evaluation.
- Had Echo done earlier this month which showed normal LVEF and mild - moderate .
COVID-19
Recent cough illness x 1 week prior to arrival
- Cough illness x 1 week - RESOLVED. COVID positive in the ED.
- Follow proper precautions.
- Supportive care at this time given duration of symptoms, not febrile / hypoxemic.
- Follow for any changes.
ASCVD
- Stable. No chest pain or dyspnea.
- Continue current CV med regimen including ASA, statin, etc.
Benign Hypertension
- BP on the lower side after A-Fib / Cardizem gtt.
- Continue metoprolol. Hold other BP agents acutely.
- Adjust regimen / resume usual meds when appropriate.
DM-II
- Stable. Hold PO medications acutely.
- Follow glucose and cover with SSI as needed.
- Updated A1C this hospitalization is 6.2%
DVT Prophylaxis: SCDs. Eliquis.
Code Status: Full Code
Anticipated Discharge: > 48 hours
Subjective/Interval History
-
Date of Service: January 31, 2025
Patient was seen and examined. He denied any dizziness, chest pain, fever, shortness of breath or any complaints.
Objective Data
-
Labs:
Laboratory Results
01/31/25
04:41
WBC 4.2 L
Hgb 14.1
Hct 38.6 L
Plt Count 188
Sodium 139
Potassium 4.2
Chloride 105
Carbon Dioxide 25
BUN 21 H
Creatinine 0.9
Glucose 105 H
Calcium 9.0
Vital Signs:
Vital Signs
Temp Pulse Resp BP Pulse Ox
98.0 F 117 17 145/72 94
01/31/25 07:00 01/31/25 09:25 01/31/25 05:00 01/31/25 09:25 01/31/25 09:51
I&O
01/30/25 01/31/25 02/01/25
06:59 06:59 06:59
Output Total 410 / 410 1320 / 1320 700 / 700
Balance -410 / -410 -1320 / -1320 -700 / -700
[2025-01-31 14:18] LABS: Glucose - Point of Care 130 mg/dl (70-99)
--- NOTE | 2025-01-31 14:48 | W.PN.CARDCBS ---
Addendum entered and electronically signed by Demar Contreras DO 01/31/25 18:30:
I saw and examined the patient.
The Social Worker Delinquency Prevention's note was reviewed and I agree with the note.
Comment:
Plan:
Continue oral Toprol XL 25 mg daily.
Was previously hypotensive with IV Cardizem.
Heart rates are acceptable currently given COVID infection.
IV Lopressor as needed for RVR
Continue anticoagulation with Eliquis and rate control strategy for now given infection.
Echo with preserved EF, mild MR and mild to moderate
Discussed with family at bedside.
Discussed with nursing.
Original Note:
Today's Communication / Plan
-
Continue current dose of Toprol-XL 25 mg daily, would not increase due to hypotension and previous orthostasis
Lopressor 5 mg IV every 4 hours PRN
Impression / Plan
-
PCP: Dr. Cornelius
Cardiology: Dr. Tristan Miranda
Impression:
Admitted with syncope 01/29/2025
A-fib with RVR
Orthostatic by vital signs
Paroxysmal A-fib
Diagnosed at time of colonoscopy 12/27/2024
Chronic Eliquis OAC
Mild to moderate peak/mean 34/18 mmHg and DEBBIE 1.4 cm sq
CAD
s/p rotational atherectomy LAD 1992
s/p Xience AN to RCA and PLB 2008
s/p right CEA 11/2012
HTN
DM 2
Hyperlipidemia
PAD with claudication
Echo 01/15/2025: EF 55 to 60%, mild MR, mild to moderate peak/mean 34/18 mmHg and DEBBIE 1.4 cm sq, mild aortic regurgitation, mild TR
Plan:
-Telemetry reviewed by me 01/31/2025, remains in A-fib and at times rates are rapid, but he is largely asymptomatic. Lopressor 5 mg IV x 1 now ordered by me. Also ordered Lopressor 5 mg IV every 4 hours PRN HR greater than 120
-Patient was taking Lopressor (metoprolol tartrate) 25 mg daily prior to admission, he had previously been taking Lopressor 3 times daily but had lowered the dose over time. Changed to Toprol XL 25 mg daily on 01/30/2025. Will not increase dose due
to hypotension with BP 102/89
-Cardizem gtt started and stopped this admission after an episode of abrupt slowing 01/30/25 that was not associated with pauses or rhythm change
-Cont Eliquis 5 mg BID (age 79, Cre 1.0)
-Would not attempt rhythm control at this time, but if he spontaneously converts to SR could consider adding AAD. Reviewed with patient and that if he remains in A-fib following resolution of COVID symptoms could pursue an outpatient CV.
-Patient was orthostatic by vital signs 01/30/2025, supine BP 143/67, sitting BP 138/72, standing BP 94/64, but he was asymptomatic and has since received 2 L IVF's.
HPI: Patient came to ER last night after an episode of syncope at home and was admitted prompting cardiology consultation. Patient has had URI symptoms for the last week and then last evening he was on the toilet and had diarrhea and when he
stood up the next thing he remembers is waking up on the floor. He came to ER with an abrasion on his head and CT was negative for acute intracranial abnormality, but there is evidence of mild atrophy. Patient was initially in SR in the ER and
then after using the bathroom he was noted to be in A-fib with RVR, but was reportedly asymptomatic. Patient was initially diagnosed with A-fib after prepping for colonoscopy back in 12/27/24 and was asymptomatic at that time as well. Patient was
started on Eliquis at that time. Patient was also started on Lopressor 25 mg 3 times daily at that time but reports he is now taking Lopressor 25 mg daily. Orthostatic vital signs since admission reviewed by me were positive, but patient was
asymptomatic.
Progress Note - Glassware Verifier
Subjective
Date of Service: January 31, 2025
No lightheadedness
Objective
Labs:
01/31/25 04:41
01/31/25 04:41
Labs
Hgb 14.1 g/dL (13.0-18.0) 01/31/25 04:41
Hct 38.6 % (39.0-52.0) L 01/31/25 04:41
Plt Count 188 10^3/uL (130-400) 01/31/25 04:41
Sodium 139 mmol/L (135-145) 01/31/25 04:41
Potassium 4.2 mmol/L (3.5-5.1) 01/31/25 04:41
BUN 21 mg/dl (9-20) H 01/31/25 04:41
Creatinine 0.9 mg/dL (0.7-1.3) 01/31/25 04:41
Glucose 105 mg/dl (70-99) H 01/31/25 04:41
Vital Signs and I&O:
Vital Signs
Temp Pulse Resp BP Pulse Ox
98.0 F 134 17 102/89 94
01/31/25 07:00 01/31/25 14:09 01/31/25 05:00 01/31/25 14:09 01/31/25 09:51
Vital Signs
Temp Pulse Resp BP Pulse Ox
98.0 F 134 17 102/89 94
01/31/25 07:00 01/31/25 14:09 01/31/25 05:00 01/31/25 14:09 01/31/25 09:51
Intake & Output
01/29/25 01/30/25 01/31/25 02/01/25
06:59 06:59 06:59 06:59
Output Total 410 / 410 1320 / 1320 700 / 700
Balance -410 / -410 -1320 / -1320 -700 / -700
Physical Exam
Physical Exam
GEN: NAD. AAOx3
HEENT: EOMI
LUNGS: RA. No audible wheeze
CV: Afib on tele.
ABD: ND
EXT: No edema B/L
NEURO: Gross non-focal
SKIN: No rash
--- NOTE | 2025-01-31 15:04 | CM ---
Reviewed the chart notes. CM continues to be available to patient/family and is monitoring medical plan for needs at discharge.
Plan: Discharge to home when medically stable. No anticipated needs being identified.
[2025-01-31 18:22] LABS: Glucose - Point of Care 118 mg/dl (70-99)
[2025-01-31 18:45] LABS: Hepatitis C Antibody Negative (Negative)
[2025-01-31] MEDS: LOW STRENGTH ASPIRIN 81 MG PO (19:39)
--- NOTE | 2025-01-31 21:53 | PTCARENOTE ---
Received patient from previous shift. Patient Ao3. Afib on monitor, HR occasionally going up into 130s. Patient using urinal appropriately. Patient has abrasion on forehead from previous fall at home that is open to air. Assessment and vital signs
as documented. Patient resting in bed with call monte in reach.
[2025-01-31 22:07] LABS: Glucose - Point of Care 158 mg/dl (70-99)
[2025-02-01] VITALS (22 sets, daily range): BP systolic 98–160; BP diastolic 66–134; PULSE 104–160; O2SAT 97; BMI 23.0
[2025-02-01] MEDS: LOPRESSOR 5 MG IV ×2 (02:20→09:32)
[2025-02-01 05:50] LABS: Hematocrit 42.3 % (39.0-52.0); Hemoglobin 15.2 g/dL (13.0-18.0); Mean Corp Hgb Conc. 35.9 g/dL (33.0-37.0); Mean Corpuscular Hgb 32.6 pg (27.0-31.0); Mean Corpuscular Volume 90.8 fL (80.0-94.0); Mean Platelet Volume 9.4 fL (7.4-10.4); Platelet Count 228 10^3/uL (130-400); Red Blood Cell Count 4.66 10^6/uL (4.70-6.10); Red Cell Dist. Width 12.2 % (11.5-14.5)
[2025-02-01 06:13] LABS: ALT (SGPT) 55 U/L (0-50); AST (SGOT) 39 U/L (17-59); Albumin 4.1 g/dl (3.5-5.0); Alkaline Phosphatase 34 U/L (38-126); Blood Urea Nitrogen 28 mg/dl (9-20); Calcium 9.4 mg/dl (8.4-10.2); Carbon Dioxide 27 mmol/L (22-30); Chloride 103 mmol/L (98-107); Estimated Creatinine Clearance 61 ml/min; Glucose 94 mg/dl (70-99); Magnesium 1.9 mg/dl (1.6-2.3); Potassium 4.5 mmol/L (3.5-5.1); Sodium 140 mmol/L (135-145); Total Bilirubin 0.8 mg/dl (0.2-1.3); Total Protein 6.6 g/dl (6.3-8.2); eGFR > 60.00
--- NOTE | 2025-02-01 07:30 | W.PN.HOSP.TC ---
Today's Communication/Plan
-
Discharge today
Assessment / Plan
Assessment / Plan
Physical Exam
General: Not in acute distress
HEENT: Moist mucous membranes, Abrasion along the right superior scalp.
Respiratory: Clear to Auscultation Bilaterally
Cardiac: S1/S2 and Irregular Rhythm
GI: Soft, Non Tender, Non Distended and Normal Bowel Sounds
Musculoskeletal: No Cyanosis and No Edema
Neuro: AAO x 3 and Nonfocal/grossly intact
Assessment/Plan
79y M with PMH significant for ASCVD, hypertension and A-Fib who presented to ED for evaluation after syncopal episode right after having diarrhea. Patient stated that he has had cough / respiratory symptoms for about one week. He had been
taking Mucinex DM with minimal improvement in his symptoms. No fevers / chills. No dyspnea. No known sick contacts. On the day of presentation, patient woke with the urge to move his bowels. He stated that he sat on the toilet and had an episode
of diarrhea but he did not feel lightheaded, dizzy, SOB, etc. The next thing he recalls is waking on the floor. He noted some discomfort in the head and some mild abdominal discomfort which he attributes to coughing. He presented to the ED for
further evaluation. While in the ED, patient was noted to go from NSR to A-Fib with RVR. He was started on Cardizem infusion.
Patient newly diagnosed with A-Fib on 12/27 when it was incidentally noted on monitor prior to a colonoscopy.
He was started on metoprolol and Eliquis in the ED and has followed up with Cardiology.
Syncope
- Suspect vasovagal episode given occurrence during bowel movement.
- Initially in NSR here in ED but then converted to A-Fib with RVR (see below).
- CT head and C-Spine unremarkable in the ED.
- Monitor for any new complaints / focal neurologic changes / etc.
- Repeat TELEPATHIST imaging if any new issues / changes in exam.
Atrial Fibrillation with Rapid Ventricular Response
- IV diltiazem started in the ED -- now off of it
- Toprol XL 25 mg daily starting 01/31/2025 (instead of home short-acting Metoprolol) -- okay for discharge today as per my communication with Dr. New with Toprol 25 mg p.o. twice daily with an extra 12.5
mg p.o. Toprol XL as needed for heart rate greater than 150 beats per minute.
- We will have to accept some elevated heart rates as patient does have some bradycardia as well.
- Per cardiology, cardioversion can be considered outpatient once patient has recovered from COVID
- Continue Eliquis 5 mg BID
- Cardiology evaluation.
- Had Echo done earlier this month which showed normal LVEF and mild - moderate .
- Follow-up with ed transporter Dr. Miranda in 3 weeks
COVID-19
Recent cough illness x 1 week prior to arrival
- Cough illness x 1 week - RESOLVED. COVID positive in the ED.
- Follow proper precautions.
- Supportive care at this time given duration of symptoms, not febrile / hypoxemic.
- Follow for any changes.
- Patient was more than 5 days from symptoms onset, and no oxygen needed, there is no indication for Paxlovid or Remdesivir
ASCVD
- Stable. No chest pain or dyspnea.
- Continue current CV med regimen including ASA, statin, etc.
Benign Hypertension
- BP on the lower side after A-Fib / Cardizem gtt.
- Continue metoprolol.
- Hold Candesartan for now
- Adjust regimen / resume usual meds when appropriate.
DM-II
- Stable.
- Follow glucose and cover with SSI as needed.
- Updated A1C this hospitalization was 6.2%
DVT Prophylaxis: SCDs. Eliquis.
Code Status: Full Code
More than 30 minutes spent in discharge including
Final examination of the patient
Summarizing hospital stay
Instructions for continuing care to all relevant caregivers
Preparation of discharge records, prescriptions, and referral forms
Total time spent (in minutes): 38
Anticipated Discharge: Today
Subjective/Interval History
-
Date of Service: February 01, 2025
Patient was seen and examined. He denied any dizziness, chest pain or any other symptoms or complaints.
Objective Data
-
Labs:
Laboratory Results
02/01/25
04:20
WBC 5.0
Hgb 15.2
Hct 42.3
Plt Count 228 D
Sodium 140
Potassium 4.5
Chloride 103
Carbon Dioxide 27
BUN 28 H
Creatinine 1.0
Glucose 94
Calcium 9.4
Total Bilirubin 0.8
AST 39
ALT 55 H
Alkaline Phosphatase 34 L
Vital Signs:
Vital Signs
Temp Pulse Resp BP Pulse Ox
97.7 F 127 14 135/77 96
02/01/25 04:12 02/01/25 06:00 02/01/25 06:00 02/01/25 06:00 02/01/25 06:00
I&O
01/31/25 02/01/25 02/02/25
06:59 06:59 06:59
Intake Total 300 / 300
Output Total 1320 / 1320 2300 / 2300
Balance -1320 / -1320 -1999 /
[2025-02-01 08:24] LABS: Glucose - Point of Care 109 mg/dl (70-99)
[2025-02-01] MEDS: ELIQUIS 5 MG PO (08:36)
[2025-02-01] MEDS: LIPITOR 80 MG PO (08:36)
[2025-02-01] MEDS: TOPROL XL 25 MG PO ×2 (08:36→13:27)
--- NOTE | 2025-02-01 12:34 | W.PN.CARDCBS ---
Today's Communication / Plan
-
Increase Toprol to 25 mg p.o. twice daily with an extra 12.5 mg p.o. as needed for heart rate greater than 150.
Continue Eliquis.
From a cardiology standpoint he is stable for discharge. We are going to have to accept some elevated heart rates as he does have some bradycardia as well.
I would like him to recover from his COVID infection and then we can reassess him as an outpatient for possible cardioversion
Impression / Plan
-
PCP: Dr. Cornelius
Cardiology: Dr. Tristan Miranda
Impression:
Admitted with syncope 01/29/2025
A-fib with RVR
Orthostatic by vital signs
Paroxysmal A-fib
Diagnosed at time of colonoscopy 12/27/2024
Chronic Eliquis OAC
Mild to moderate peak/mean 34/18 mmHg and DEBBIE 1.4 cm sq
CAD
s/p rotational atherectomy LAD 1992
s/p Xience AN to RCA and PLB 2008
s/p right CEA 11/2012
HTN
DM 2
Hyperlipidemia
PAD with claudication
Echo 01/15/2025: EF 55 to 60%, mild MR, mild to moderate peak/mean 34/18 mmHg and DEBBIE 1.4 cm sq, mild aortic regurgitation, mild TR
Plan:
-Ventricular rates are overall adequate although mildly elevated. Will increase Toprol to 25 mg twice daily and follow at home. He can take an extra 12.5 mg of Toprol as needed for heart rates greater than 150. He is stable for discharge from a
cardiology standpoint. He is going to have continued episodes of tachycardia and bradycardia but for now I would let him recover from his COVID infection.
-He has follow-up with Dr. Miranda in 3 weeks.
-Cardizem gtt started and stopped this admission after an episode of abrupt slowing 01/30/25 that was not associated with pauses or rhythm change
-Cont Eliquis 5 mg BID (age 79, Cre 1.0)
-Would not attempt rhythm control at this time, but if he spontaneously converts to SR could consider adding AAD. Reviewed with patient and that if he remains in A-fib following resolution of COVID symptoms could pursue an outpatient CV.
-Patient was orthostatic by vital signs 01/30/2025, supine BP 143/67, sitting BP 138/72, standing BP 94/64, but he was asymptomatic and has since received 2 L IVF's.
HPI: Patient came to ER last night after an episode of syncope at home and was admitted prompting cardiology consultation. Patient has had URI symptoms for the last week and then last evening he was on the toilet and had diarrhea and when he
stood up the next thing he remembers is waking up on the floor. He came to ER with an abrasion on his head and CT was negative for acute intracranial abnormality, but there is evidence of mild atrophy. Patient was initially in SR in the ER and
then after using the bathroom he was noted to be in A-fib with RVR, but was reportedly asymptomatic. Patient was initially diagnosed with A-fib after prepping for colonoscopy back in 12/27/24 and was asymptomatic at that time as well. Patient was
started on Eliquis at that time. Patient was also started on Lopressor 25 mg 3 times daily at that time but reports he is now taking Lopressor 25 mg daily. Orthostatic vital signs since admission reviewed by me were positive, but patient was
asymptomatic.
Progress Note - Insurance Sales Manager
Subjective
Date of Service: February 01, 2025
Feels better with no further episodes of syncope. Ventricular rates are improved. No palpitations.
Objective
Labs:
02/01/25 04:20
02/01/25 04:20
Labs
Hgb 15.2 g/dL (13.0-18.0) 02/01/25 04:20
Hct 42.3 % (39.0-52.0) 02/01/25 04:20
Plt Count 228 10^3/uL (130-400) D 02/01/25 04:20
Sodium 140 mmol/L (135-145) 02/01/25 04:20
Potassium 4.5 mmol/L (3.5-5.1) 02/01/25 04:20
BUN 28 mg/dl (9-20) H 02/01/25 04:20
Creatinine 1.0 mg/dL (0.7-1.3) 02/01/25 04:20
Glucose 94 mg/dl (70-99) 02/01/25 04:20
Vital Signs and I&O:
Vital Signs
Temp Pulse Resp BP Pulse Ox
98.4 F 98 18 142/87 96
02/01/25 07:45 02/01/25 12:02 02/01/25 12:02 02/01/25 12:02 02/01/25 12:02
Vital Signs
Temp Pulse Resp BP Pulse Ox
98.4 F 98 18 142/87 96
02/01/25 07:45 02/01/25 12:02 02/01/25 12:02 02/01/25 12:02 02/01/25 12:02
Intake & Output
01/30/25 01/31/25 02/01/25 02/02/25
06:59 06:59 06:59 06:59
Intake Total 300 / 300 240 / 240
Output Total 410 / 410 1320 / 1320 2300 / 2300
Balance -410 / -410 -1320 / -1320 -2000 / -2000 240 / 240
Physical Exam
Physical Exam
GEN: No distress, awake, Ox3
HEENT: supple, anicteric, mmm
LUNGS: scatt rhonchi
CV: irreg, S1/S2, 1/6 syst LSB, no gallop
ABD: soft, BS+, NT/ND
EXT: No edema
NEURO: Gross non-focal
SKIN: No rash
[2025-02-01 12:47] LABS: Glucose - Point of Care 177 mg/dl (70-99)
--- NOTE | 2025-02-01 15:24 | PTCARENOTE ---
Addendum entered by Karlo Holley RN 02/01/25 17:25:
DC papers reviewed in detail with patient and . All questions answered. IV and tele removed. Patient left by wheelchair with as lift driver.
Original Note:
Patient AAOx3, making needs known. at bedside. +orthos, patient asymptomatic, MD notified. Hr afib ranging from 90s-160s today, see documentation and MD sasha aware and treating. Patient with no complaints. Educated patient and on afib,
orthostatic hypotension, and covid isolation. Call monte in hand. Will continue to closely monitor.
== END 2025-02-01 17:25 | disposition home or self-care (01) | DRG 308 ==
LOC: IMU 06:35
PROVIDERS: ADMITTING PHYSICIAN Hospitalist; ATTENDING PHYSICIAN Hospitalist; CONSULT PHYSICIAN Internal Medicine Cardiovascular Disease; EMERGENCY PHYSICIAN Student in an Organized Health Care Education/Training Program; FAMILY PHYSICIAN Family Medicine
DX: I48.0 Paroxysmal atrial fibrillation (principal); U07.1 COVID-19; I25.10 Atherosclerotic heart disease of native coronary artery without angina pectoris; I10 Essential (primary) hypertension; E11.9 Type 2 diabetes mellitus without complications; R55 Syncope and collapse; S00.81XA Abrasion of other part of head, initial encounter; X58.XXXA Exposure to other specified factors, initial encounter; I35.0 Nonrheumatic aortic (valve) stenosis; Z79.84 Long term (current) use of oral hypoglycemic drugs; Z79.01 Long term (current) use of anticoagulants; Z79.82 Long term (current) use of aspirin
CPT/HCPCS: 70450; 72125; 80048; 80053; 81003; 81015; 82962; 83036; 83735; 85025; 85027; 86803; 87502; 87811; 93005; 96361; 96365; 96366; 97163; 99285

== ENCOUNTER 2025-02-12 14:47 | Inpatient (IN) | payer MEDICARE, OTHER, SELFPAY ==
[2025-02-12 14:58] VITALS: BP 147/78
[2025-02-12 15:17] VITALS: BMI 23.7
[2025-02-12 15:29] LABS: % Basophils 0.4 % (0-2); % Eosinophils 3.3 % (0-6); % Immature Granulocytes 0.4 % (0-0.5); % Lymphocytes 12.9 % (20.5-51.1); % Monocytes 8.7 % (1.7-9.3); % Neutrophils 74.3 % (42.2-75.2); Absolute Eosinophils 0.3 10^3/uL (0-0.7); Absolute Monocytes 0.7 10^3/uL (0.1-0.6); Absolute Neutrophils 5.7 10^3/uL (1.4-6.5); Hematocrit 35.7 % (39.0-52.0); Hemoglobin 12.8 g/dL (13.0-18.0); Mean Corp Hgb Conc. 35.9 g/dL (33.0-37.0); Mean Corpuscular Hgb 33.6 pg (27.0-31.0); Mean Corpuscular Volume 93.7 fL (80.0-94.0); Mean Platelet Volume 8.6 fL (7.4-10.4); Nucleated Red Blood Cells % 0 % (-); Platelet Count 257 10^3/uL (130-400); Red Blood Cell Count 3.81 10^6/uL (4.70-6.10); Red Cell Dist. Width 12.6 % (11.5-14.5); White Blood Cell Count 7.6 10^3/uL (4.8-10.8)
--- NOTE | 2025-02-12 15:39 | W.PN.CARDCBS ---
Addendum entered and electronically signed by Rox Tipton MD 02/12/25 19:05:
I saw and examined the patient.
The Turbine Engine Assembler's note was reviewed and I agree with the note.
Comment: Briefly, patient is a 79-year-old gentleman with past medical history of hypertension, type 2 diabetes mellitus, hyperlipidemia, PAD with claudication, mild to moderate aortic stenosis with peak and mean transaortic gradients of 34 and 18
mmHg with estimated aortic valve area 1.46 cm�, CAD status post prior stents to LAD and RCA, PAD status post right CEA in 2012, persistent atrial fibrillation since December 2024 on chronic Eliquis without missed doses, recent admission for syncope
at the end of January who now presents for scheduled Tikosyn loading. No chest discomfort or shortness of breath.
On exam patient is well-appearing, no acute distress, awake, alert and oriented x 3, no carotid bruits, irregularly irregular heart rhythm, normal rate, normal S1 and S2, 2 out of 6 systolic ejection murmur loudest at the right upper sternal border,
clear to auscultation bilaterally, abdomen is soft, nontender, nondistended with active bowel sounds, warm extremities without significant edema.
Recommendations:
1. Creatinine clearance was calculated at 69 and patient is appropriately dosed with 500 mg of twice daily Tikosyn with first dose this evening.
2. Continue to follow ECG serially while continuing to monitor on telemetry.
3. We discussed briefly that in case he does not convert to normal sinus rhythm we would consider cardioversion morning tentatively.
4. Continue Eliquis. No bleeding complications or recent falls noted.
Rox Tipton MD, [facility], [facility]
Original Note:
Today's Communication / Plan
-
Start Tikosyn 500 mcg q 12 hours
Cont Eliquis 5 mg BID
Impression / Plan
-
PCP: Dr. Cornelius
Cardiology: Dr. Tristan Miranda
Impression:
Direct admission for Tikosyn load 02/12/25
Recent admission for syncope 01/29/2025 until 02/01/25
Persistent Afib
Diagnosed at time of colonoscopy 12/27/2024
Chronic Eliquis OAC
Mild to moderate peak/mean 34/18 mmHg and DEBBIE 1.4 cm sq
CAD
s/p rotational atherectomy LAD 1992
s/p Xience AN to RCA and PLB 2008
s/p right CEA 11/2012
HTN
DM 2
Hyperlipidemia
PAD with claudication
Echo 01/15/2025: EF 55 to 60%, mild MR, mild to moderate peak/mean 34/18 mmHg and DEBBIE 1.4 cm sq, mild aortic regurgitation, mild TR
Plan:
-Patient came to [facility] today for Tikosyn load for persistent Afib following office visit 02/08/25. Patient initially diagnosed with Afib during colonoscopy 12/27/24 and he was started on Eliquis at that time. Patient has not missed any doses
of Eliquis. Patient was then admitted to for syncope and COVID 01/29/25 until 02/01/25. When patient was seen in the office 02/08/25 he was in rapid Afib and Dr. Miranda suggested addition of AAD and patient agreeable to Tikosyn load. Patient is
asymptomatic with Afib.
-CrCl is 69 calculated by me 02/12/25 and will start Tikosyn 500 mcg q 12 hours starting 02/12/25 PM.
-ECG reviewed by me is Afib with RVR and QTc 441 ms.
-5th dose of Tikosyn will be night. Talked with patient and about CV on morning if he fails to spontaneously convert to SR.
-Cont Eliquis 5 mg BID (age 79, Cre 0.9)
Progress Note - Property Officer
Subjective
Date of Service: February 12, 2025
Denies palpitations
Objective
Labs:
02/12/25 15:19
Labs
Hgb 12.8 g/dL (13.0-18.0) L 02/12/25 15:19
Hct 35.7 % (39.0-52.0) L 02/12/25 15:19
Plt Count 257 10^3/uL (130-400) 02/12/25 15:19
Vital Signs and I&O:
Vital Signs
Temp Pulse Resp BP Pulse Ox
98.2 F 103 18 147/78 96
02/12/25 15:16 02/12/25 15:15 02/12/25 15:16 02/12/25 14:58 02/12/25 15:16
Vital Signs
Temp Pulse Resp BP Pulse Ox
98.2 F 103 18 147/78 96
02/12/25 15:16 02/12/25 15:15 02/12/25 15:16 02/12/25 14:58 02/12/25 15:16
Physical Exam
Physical Exam
GEN: NAD. AAOx3
HEENT: EOMI
LUNGS: RA. No audible wheeze
CV: Afib on tele. Irreg irreg
ABD: ND
EXT: No edema B/L
NEURO: Gross non-focal
SKIN: No rash
[2025-02-12 15:40] LABS: ALT (SGPT) 36 U/L (0-50); AST (SGOT) 24 U/L (17-59); Albumin 3.1 g/dl (3.5-5.0); Alkaline Phosphatase 25 U/L (38-126); Blood Urea Nitrogen 23 mg/dl (9-20); Calcium 8.4 mg/dl (8.4-10.2); Carbon Dioxide 27 mmol/L (22-30); Chloride 106 mmol/L (98-107); Estimated Creatinine Clearance 68 ml/min; Glucose 227 mg/dl (70-99); Magnesium 1.7 mg/dl (1.6-2.3); Potassium 4.1 mmol/L (3.5-5.1); Sodium 138 mmol/L (135-145); Total Bilirubin 0.6 mg/dl (0.2-1.3); Total Protein 5.2 g/dl (6.3-8.2); eGFR > 60.00
--- NOTE | 2025-02-12 15:40 | PTCARENOTE ---
Received the patient as a direct admit. The patient is aaox3. Rapid afib is noted on the monitor with HRs in the 130s. He is asymptomatic. Vital signs are stable. I placed a #20 IV in his right forearm and nathaniel his labs. I oriented him to his room
and updated him on his plan of care.
[2025-02-12 16:26] VITALS: BMI 23.7
--- NOTE | 2025-02-12 16:38 | W.CARD.TIKOS ---
Initiate Tikosyn
-
I verify that the patient has not taken any verapamil (Isoptin/Calan), ketoconazole (Nizoral), cimetidine (Tagamet), trimethoprim (Trimpex), trimethoprim/sulfamethoxazole (Bactrim), megesterol (Megace), prochlorperazine (Compazine),
hydrochlorothiazide (HCTZ), dolutegravir (Tivicay) or any Class I or Class III anti-arrhythmic within the last three days
AND
I verify that the patient has not taken amiodarone within the last THREE months, or that the patient's amiodarone plasma concentration is <0.3 mcg/mL.
Creatinine 0.9 mg/dL (0.7-1.3) 02/12/25 15:19
Estimated Creat Clear 68 ml/min 02/12/25 15:19
CrCl 69 calculated by me
Does patient have a Ventricular Conduction Abnormality: No
I have assessed the baseline QTc interval (using QT for heart rate less than 60 bpm) and deemed the patient is appropriate for Dofetilide therapy. I understand that Tikosyn is contraindicated if the QTc is >440msec (500msec in patients with
ventricular conduction abnormalities).
Baseline QTc (in msec): 441
QTc interval is greater than 440msec without conduction abnormality OR greater than 500msec with a conduction abnormality, but acceptable to proceed per Cardiology attending.
Reason for Administration with Prolonged QTc: Other Atrial Arrhythmia
Ordering Physician: Juno Miranda
[2025-02-12 17:44] LABS: Glucose - Point of Care 170 mg/dl (70-99)
[2025-02-12] MEDS: NOVOLOG FLEXPEN-LOW RESISTANCE 1 UNITS SC (18:26)
[2025-02-12] MEDS: LIPITOR 80 MG PO (18:26)
[2025-02-12] MEDS: TIKOSYN 500 MCG PO (18:30)
[2025-02-12 19:04] VITALS: BP 147/88
[2025-02-12] MEDS: ELIQUIS 5 MG PO (19:40)
[2025-02-12] MEDS: TOPROL XL 50 MG PO (19:41)
[2025-02-12 19:42] VITALS: BP 178/82
[2025-02-12 20:00] VITALS: BP 133/87
[2025-02-12 22:08] LABS: Glucose - Point of Care 103 mg/dl (70-99)
[2025-02-12 22:10] VITALS: BP 148/98
[2025-02-12] MEDS: HYTRIN 2 MG PO (23:32)
[2025-02-13] VITALS (7 sets, daily range): BP systolic 125–153; BP diastolic 61–90; BMI 23.6
--- NOTE | 2025-02-13 00:41 | PTCARENOTE ---
Rec'd pt at change of shift. AAO*3, VSS, and Afib on TELE monitor. Post 1st dose Tikosen EKG complete. Pt updated on plan of care and denies any pain or discomfort at this time. Pt resting with call monte in reach and plan of care ongoing. See
MAR and flowchart for full pt care and assessment.
[2025-02-13 05:11] LABS: Hemoglobin 12.7 g/dL (13.0-18.0); Mean Corp Hgb Conc. 35.3 g/dL (33.0-37.0); Mean Corpuscular Hgb 32.8 pg (27.0-31.0); Mean Platelet Volume 8.7 fL (7.4-10.4); Platelet Count 253 10^3/uL (130-400); Red Blood Cell Count 3.87 10^6/uL (4.70-6.10); Red Cell Dist. Width 12.6 % (11.5-14.5); White Blood Cell Count 6.4 10^3/uL (4.8-10.8)
[2025-02-13 05:32] LABS: Blood Urea Nitrogen 20 mg/dl (9-20); Calcium 9.3 mg/dl (8.4-10.2); Carbon Dioxide 24 mmol/L (22-30); Chloride 105 mmol/L (98-107); Estimated Creatinine Clearance 61 ml/min; Glucose 114 mg/dl (70-99); Potassium 4.4 mmol/L (3.5-5.1); Sodium 139 mmol/L (135-145); eGFR > 60.00
[2025-02-13 06:19] LABS: Hepatitis C Antibody Negative (Negative)
[2025-02-13] MEDS: TIKOSYN 500 MCG PO ×2 (06:34→19:57)
[2025-02-13 07:18] LABS: Glucose - Point of Care 106 mg/dl (70-99)
[2025-02-13] MEDS: NOVOLOG FLEXPEN-LOW RESISTANCE SC ×3 (07:21→17:43)
[2025-02-13] MEDS: GLUCOPHAGE XR EXTENDED RELEASE 500 MG PO (07:39)
[2025-02-13] MEDS: ELIQUIS 5 MG PO ×2 (07:39→19:57)
[2025-02-13] MEDS: TOPROL XL 50 MG PO (07:39)
[2025-02-13] MEDS: FLUSH (NSS) 1 FLUSH IV (07:39)
--- NOTE | 2025-02-13 07:45 | W.PN.CARDCBS ---
Addendum entered and electronically signed by Rox Tipton MD 02/13/25 17:51:
I saw and examined the patient.
The Water And Gas Helper's note was reviewed and I agree with the note.
Comment: Patient was initiated on Tikosyn last evening and had a 7-second conversion pause on telemetry and has converted to sinus bradycardia. During this interim he had felt transient lightheadedness.
On exam patient is well-appearing, no acute distress, regular rate, normal S1 and S2, no murmurs, rubs or gallops, abdomen soft, nontender, nondistended with active bowel sounds, warm extremities without significant edema.
Recommendations:
1. Discussed with electrophysiology regarding conversion pause and for now her plan is to cut back on his metoprolol XL to once daily and closely monitor on telemetry.
2. Repeat ECG after second dose of Tikosyn this morning showed QTc of 420 ms in the setting of sinus bradycardia with PACs.
3. Otherwise the patient feels well and has not had any recurrent lightheadedness or any other symptoms. is at bedside.
4. Continue Eliquis 5 mg twice daily which he has been tolerating well.
5. Continue Tikosyn 500 MCG as noted below with plan to keep a close eye on QTc.
Rox Tipton MD, [facility], [facility]
Original Note:
Today's Communication / Plan
-
Will review with EP re: conversion pause
Cont Tikosyn 500 mcg q 12 horus for now, QTc stable after 2nd dose given this morning
Impression / Plan
-
PCP: Dr. Cornelius
Cardiology: Dr. Tristan Miranda
Impression:
Direct admission for Tikosyn load 02/12/25
Recent admission for syncope 01/29/2025 until 02/01/25
Persistent Afib
Diagnosed at time of colonoscopy 12/27/2024
Spontaneous conversion to SR with 7 second conversion pause 02/13/25
Chronic Eliquis OAC
Mild to moderate peak/mean 34/18 mmHg and DEBBIE 1.4 cm sq
CAD
s/p rotational atherectomy LAD 1992
s/p Xience AN to RCA and PLB 2008
s/p right CEA 11/2012
HTN
DM 2
Hyperlipidemia
PAD with claudication
Echo 01/15/2025: EF 55 to 60%, mild MR, mild to moderate peak/mean 34/18 mmHg and DEBBIE 1.4 cm sq, mild aortic regurgitation, mild TR
Plan:
-QTc 495 ms after 1st dose of Tikosyn 500 mcg q 12 hours Tuesday night.
-2nd dose given Tuesday morning and ECG 2 hours later reviewed by me showed sinus nicolasa with PACs and QTc 420 ms.
-Tele reviewed by me 02/13/25 and patient noted to have a 7 second conversion pause by nursing. Patient felt lightheaded.
-Patient received his usual dose of Toprol XL 50 mg BID Tuesday morning as well.
-5th dose of Tikosyn will be night.
-Cont Eliquis 5 mg BID (age 79, Cre 0.9)
HPI: Patient came to [facility] today for Tikosyn load for persistent Afib following office visit 02/08/25. Patient initially diagnosed with Afib during colonoscopy 12/27/24 and he was started on Eliquis at that time. Patient has not missed any
doses of Eliquis. Patient was then admitted to for syncope and COVID 01/29/25 until 02/01/25. When patient was seen in the office 02/08/25 he was in rapid Afib and Dr. Miranda suggested addition of AAD and patient agreeable to Tikosyn load. Patient is
asymptomatic with Afib.
Progress Note - Group Care Worker
Subjective
Date of Service: February 13, 2025
Spontaneously converted to SR after I saw him earlier this morning and he told nursing he felt lightheaded with 7 second conversion pause
Objective
Labs:
02/13/25 04:51
02/13/25 04:51
Labs
Hgb 12.7 g/dL (13.0-18.0) L 02/13/25 04:51
Hct 36.0 % (39.0-52.0) L 02/13/25 04:51
Plt Count 253 10^3/uL (130-400) 02/13/25 04:51
Sodium 139 mmol/L (135-145) 02/13/25 04:51
Potassium 4.4 mmol/L (3.5-5.1) 02/13/25 04:51
BUN 20 mg/dl (9-20) 02/13/25 04:51
Creatinine 1.0 mg/dL (0.7-1.3) 02/13/25 04:51
Glucose 114 mg/dl (70-99) H 02/13/25 04:51
Vital Signs and I&O:
Vital Signs
Temp Pulse Resp BP Pulse Ox
98.4 F 117 16 148/90 96
02/13/25 07:07 02/13/25 07:06 02/13/25 07:07 02/13/25 07:06 02/13/25 07:07
Vital Signs
Temp Pulse Resp BP Pulse Ox
98.4 F 117 16 148/90 96
02/13/25 07:07 02/13/25 07:06 02/13/25 07:07 02/13/25 07:06 02/13/25 07:07
Intake & Output
02/11/25 02/12/25 02/13/25 02/14/25
06:59 06:59 06:59 06:59
Intake Total 720 / 720
Output Total 300 / 300
Balance 420 / 420
Physical Exam
Physical Exam
GEN: NAD. AAOx3
HEENT: EOMI
LUNGS: RA. No audible wheeze
CV: Afib on tele. Irreg irreg
ABD: ND
EXT: No edema B/L
NEURO: Gross non-focal
SKIN: No rash
--- NOTE | 2025-02-13 08:25 | PTCARENOTE ---
While the patient was in the chair eating his breakfast, his telemetry alarm alerted asystole. His rhythm then changed to sinus nicolasa with PACs. He had a 7 second conversion pause. During this pause the patient did state that he felt lightheaded.
ECG confirmed sinus nicolasa with a HR of 51. His HR did decrease to 39 at one point while doing his ECG and now fluctuates between the 40s and 50s. The patient did have his 50mg of metoprolol this morning. I notified Marcia Zuleta.
--- NOTE | 2025-02-13 09:46 | PTCARENOTE ---
2nd dose Tikosyn QTc is 410
--- NOTE | 2025-02-13 11:48 | PTCARENOTE ---
While taking the patient's vital signs, the patient stated that before he went into afib, his heart rates were low, in the 50s.
[2025-02-13 12:11] LABS: Glucose - Point of Care 134 mg/dl (70-99)
--- NOTE | 2025-02-13 12:28 | CM ---
CM following for DC planning needs.
Met w/ patient + spouse at bedside to complete initial assessment.
Pt. resides w/ spouse in a private, split level home. Pt. is functionally indep. at baseline without the use of any assisted device. Pt. has no other DME in the home.
Pt. has RX plan and uses [facility] in [place] for prescription needs.
Will follow while here in the hospital for DC planning needs.
Reviewed w/ patient the need for 3d RX of Tikosyn upon DC. Will also check cost of medication.
Will cont. to follow.
[2025-02-13 17:17] LABS: Glucose - Point of Care 96 mg/dl (70-99)
[2025-02-13] MEDS: LIPITOR 80 MG PO (18:00)
[2025-02-13] MEDS: TESSALON PERLES 200 MG PO (19:58)
--- NOTE | 2025-02-13 21:03 | PTCARENOTE ---
Rec'd pt at change of shift. Pt AAO*3, VSS, and sinus nicolasa on tele monitor. Pt denies any pain or discomfort. 4th dose of Tikosen given as ordered, EKG to be obtained at 22:00 per protocol. Pt resting with call monte in reach and plan of care
ongoing.
[2025-02-13] MEDS: HYTRIN 2 MG PO (21:43)
[2025-02-13 22:16] LABS: Glucose - Point of Care 101 mg/dl (70-99)
[2025-02-14] VITALS (11 sets, daily range): BP systolic 136–167; BP diastolic 38–62; BMI 23.5
[2025-02-14 06:12] LABS: Blood Urea Nitrogen 28 mg/dl (9-20); Calcium 9.5 mg/dl (8.4-10.2); Carbon Dioxide 27 mmol/L (22-30); Chloride 105 mmol/L (98-107); Estimated Creatinine Clearance 55 ml/min; Glucose 100 mg/dl (70-99); Potassium 4.4 mmol/L (3.5-5.1); Sodium 139 mmol/L (135-145); eGFR > 60.00
--- NOTE | 2025-02-14 08:10 | W.PN.CARDCBS ---
Addendum entered and electronically signed by Reagan New MD 02/14/25 11:46:
I saw and examined the patient.
The Net Mvc Developer's note was reviewed and I agree with the note.
Comment:
GEN: No distress, awake, Ox3
HEENT: supple, anicteric, mmm
LUNGS: CTA, no wheezes/rales
CV: Reg, S1/S2, 1/6 syst LSB, no gallop
ABD: soft, BS+, NT/ND
EXT: No edema
NEURO: Gross non-focal
SKIN: No rash
Plan:
He converted to sinus rhythm with a 7-second conversion pause. Decrease Toprol to 25 mg daily. May need to stop Toprol.
Continue Tikosyn 500 mcg p.o. twice daily. QTc 407 ms
Will follow for another 24 hours with bradycardia and for likely discharge in a.m.
Start losartan for improved blood pressure control.
Original Note:
Today's Communication / Plan
-
Decrease Toprol XL to 25 mg daily, follow tele and may need to reduce further or stop if ongoing bradycardia
New to losartan 25 mg daily, check BMP in 2 weeks, lab slip on chart
5th dose of Tikosyn tonight, patient and asking to stay until the AM
Impression / Plan
-
PCP: Dr. Cornelius
Cardiology: Dr. Tristan Miranda
Impression:
Direct admission for Tikosyn load 02/12/25
Recent admission for syncope 01/29/2025 until 02/01/25
Persistent Afib
Diagnosed at time of colonoscopy 12/27/2024
Spontaneous conversion to SR with 7 second conversion pause 02/13/25
Chronic Eliquis OAC
Mild to moderate peak/mean 34/18 mmHg and DEBBIE 1.4 cm sq
CAD
s/p rotational atherectomy LAD 1992
s/p Xience AN to RCA and PLB 2008
s/p right CEA 11/2012
HTN
DM 2
Hyperlipidemia
PAD with claudication
Echo 01/15/2025: EF 55 to 60%, mild MR, mild to moderate peak/mean 34/18 mmHg and DEBBIE 1.4 cm sq, mild aortic regurgitation, mild TR
Plan:
-Remains in SR after spontaneous conversion with sinus pause on 02/13/25. QTc 425 ms after 3rd dose of Tikosyn Tuesday night. 4th dose of Tiksoyn given morning. 5th dose of Tikosyn scheduled for night and patient is asking to stay
until Tuesday.
-Tele reviewed by me 02/14/25, sinus bradycardia, PACs. Will cut Toprol XL dose to 25 mg daily with a hold parameter for HR less than 55.
-BP trend reviewed by me, patient HTN. Start losartan 25 mg daily, reviewed with patient and daughter who are in agreement, ordered by me. Check BMP in 2 weeks as an outpatient
-Cont Eliquis 5 mg BID (age 79, Cre 0.9)
-Likely d/c to home 02/14/25
HPI: Patient came to [facility] today for Tikosyn load for persistent Afib following office visit 02/08/25. Patient initially diagnosed with Afib during colonoscopy 12/27/24 and he was started on Eliquis at that time. Patient has not missed any
doses of Eliquis. Patient was then admitted to for syncope and COVID 01/29/25 until 02/01/25. When patient was seen in the office 02/08/25 he was in rapid Afib and Dr. Miranda suggested addition of AAD and patient agreeable to Tikosyn load. Patient is
asymptomatic with Afib.
Progress Note - Contract Assistant
Subjective
Date of Service: February 14, 2025
He feels well, not lightheaded
Objective
Labs:
02/13/25 04:51
02/14/25 05:31
Labs
Hgb 12.7 g/dL (13.0-18.0) L 02/13/25 04:51
Hct 36.0 % (39.0-52.0) L 02/13/25 04:51
Plt Count 253 10^3/uL (130-400) 02/13/25 04:51
Sodium 139 mmol/L (135-145) 02/14/25 05:31
Potassium 4.4 mmol/L (3.5-5.1) 02/14/25 05:31
BUN 28 mg/dl (9-20) H 02/14/25 05:31
Creatinine 1.1 mg/dL (0.7-1.3) 02/14/25 05:31
Glucose 100 mg/dl (70-99) H 02/14/25 05:31
Vital Signs and I&O:
Vital Signs
Temp Pulse Resp BP Pulse Ox
98.6 F 61 20 145/46 95
02/14/25 06:47 02/14/25 07:00 02/14/25 06:47 02/14/25 06:49 02/14/25 06:47
Vital Signs
Temp Pulse Resp BP Pulse Ox
98.6 F 61 20 145/46 95
02/14/25 06:47 02/14/25 07:00 02/14/25 06:47 02/14/25 06:49 02/14/25 06:47
Intake & Output
02/12/25 02/13/25 02/14/25 02/15/25
06:59 06:59 06:59 06:59
Intake Total 720 / 720 960 / 960
Output Total 300 / 300 200 / 200
Balance 420 / 420 760 / 760
Physical Exam
Physical Exam
GEN: NAD. AAOx3
HEENT: EOMI
LUNGS: RA. No audible wheeze
CV: SR on tele
EXT: No edema B/L
NEURO: Gross non-focal
SKIN: No rash
[2025-02-14 08:19] LABS: Glucose - Point of Care 95 mg/dl (70-99)
[2025-02-14] MEDS: GLUCOPHAGE XR EXTENDED RELEASE 500 MG PO (08:20)
[2025-02-14] MEDS: ELIQUIS 5 MG PO ×2 (08:20→20:35)
[2025-02-14] MEDS: TIKOSYN 500 MCG PO ×2 (08:23→19:10)
[2025-02-14] MEDS: NOVOLOG FLEXPEN-LOW RESISTANCE SC ×2 (08:26→12:48)
--- NOTE | 2025-02-14 09:20 | PTCARENOTE ---
Home supply of Tikosyn given to pt's daughter to take home.
[2025-02-14] MEDS: TOPROL XL PO (09:27)
[2025-02-14] MEDS: COZAAR 25 MG PO (09:28)
--- NOTE | 2025-02-14 11:41 | CM ---
CM following for DC planning needs.
Antic. DC to home once medically stable.
Will need a 3d RX of Dofetilide.
Did call [facility], patient's [facility], they have 60 pills in stock.
Will call w/ est. co-pay once RX sent.
Will follow.
[2025-02-14 12:45] LABS: Glucose - Point of Care 118 mg/dl (70-99)
[2025-02-14 16:59] LABS: Glucose - Point of Care 170 mg/dl (70-99)
[2025-02-14] MEDS: NOVOLOG FLEXPEN-LOW RESISTANCE 1 UNITS SC (17:29)
[2025-02-14] MEDS: LIPITOR 80 MG PO (19:10)
[2025-02-14] MEDS: HYTRIN 2 MG PO (22:06)
[2025-02-14] MEDS: TESSALON PERLES 200 MG PO (22:10)
[2025-02-14 22:43] LABS: Glucose - Point of Care 97 mg/dl (70-99)
[2025-02-15 03:38] VITALS: BP 158/62
[2025-02-15 03:44] VITALS: BMI 23.4
--- NOTE | 2025-02-15 07:23 | W.PN.CARDCBS ---
Addendum entered and electronically signed by Aracelis Duque PA-C 02/15/25 16:21:
[id number]
Addendum entered and electronically signed by Reagan New MD 02/15/25 09:26:
I saw and examined the patient.
The Loading Unit Operator's note was reviewed and I agree with the note.
Comment:
GEN: No distress, awake, Ox3
HEENT: supple, anicteric, mmm
LUNGS: CTA, no wheezes/rales
CV: Reg, S1/S2, 1/6 syst LSB, no gallop
ABD: soft, BS+, NT/ND
EXT: No edema
NEURO: Gross non-focal
SKIN: No rash
Plan:
Remains in sinus rhythm. Continue Tikosyn 500 mcg every 12. Will discharge on Toprol 25 mg daily. Has some bradycardia but overall much less on lower dose of Toprol
Continue losartan 25 mg daily. Check basic metabolic panel in 2 weeks.
Okay for discharge
Original Note:
Today's Communication / Plan
-
Continue Tikosyn 500mcg Q12H
Continue Eliquis 5mg BID
Stop Toprol due to bradycardia
Follow BPs w/ starting losartan. If remain elevated, will increase to 50mg daily as OP
BMP in 2 weeks
Follow up arranged
OK for discharge
Impression / Plan
-
PCP: Dr. Cornelius
Cardiology: Dr. Juno Miranda
Impression:
Direct admission for Tikosyn load 02/12/25
Recent admission for syncope 01/29/2025 until 02/01/25
Persistent Afib
Diagnosed at time of colonoscopy 12/27/2024
Spontaneous conversion to SR with 7 second conversion pause 02/13/25
Chronic Eliquis OAC
Mild to moderate peak/mean 34/18 mmHg and DEBBIE 1.4 cm sq
CAD
s/p rotational atherectomy LAD 1992
s/p Xience AN to RCA and PLB 2008
s/p right CEA 11/2012
HTN
DM 2
Hyperlipidemia
PAD with claudication
Echo 01/15/2025: EF 55 to 60%, mild MR, mild to moderate peak/mean 34/18 mmHg and DEBBIE 1.4 cm sq, mild aortic regurgitation, mild TR
Plan:
-Presented for elective Tikosyn loading. QTc remains stable at 440ms by ECG in PM on 02/14, after 5th dose.
-Remains in SR after spontaneous conversion w/ sinus pause 02/13/2025. Remains bradycardic w/ HR in the 40s. Will stop Toprol, has been on hold.
-Continues on uninterrupted anticoagulation w/ Eliquis 5mg BID.
-BPs starting to improve w/ addition of losartan 25mg daily, started on 02/14. Follow up BMP in 2 weeks as OP.
-Discussed w/ patient and , will want them to follow BPs at home and call the office if next week BPs remain elevated.
-Stable for discharge to home 02/15/25. Follow up arranged.
HPI: Patient came to [facility] today for Tikosyn load for persistent Afib following office visit 02/08/25. Patient initially diagnosed with Afib during colonoscopy 12/27/24 and he was started on Eliquis at that time. Patient has not missed any
doses of Eliquis. Patient was then admitted to for syncope and COVID 01/29/25 until 02/01/25. When patient was seen in the office 02/08/25 he was in rapid Afib and Dr. Miranda suggested addition of AAD and patient agreeable to Tikosyn load. Patient is
asymptomatic with Afib.
Progress Note - Assistant Import Manager
Subjective
Date of Service: February 15, 2025
No complaints overnight other than uncontrolled BPs. Notes no symptoms related to elevated BP readings.
Objective
Labs:
02/13/25 04:51
02/14/25 05:31
Labs
Hgb 12.7 g/dL (13.0-18.0) L 02/13/25 04:51
Hct 36.0 % (39.0-52.0) L 02/13/25 04:51
Plt Count 253 10^3/uL (130-400) 02/13/25 04:51
Sodium 139 mmol/L (135-145) 02/14/25 05:31
Potassium 4.4 mmol/L (3.5-5.1) 02/14/25 05:31
BUN 28 mg/dl (9-20) H 02/14/25 05:31
Creatinine 1.1 mg/dL (0.7-1.3) 02/14/25 05:31
Glucose 100 mg/dl (70-99) H 02/14/25 05:31
Vital Signs and I&O:
Vital Signs
Temp Pulse Resp BP Pulse Ox
98.6 F 44 17 158/62 94
02/15/25 03:36 02/15/25 05:00 02/15/25 03:36 02/15/25 03:38 02/15/25 03:38
Vital Signs
Temp Pulse Resp BP Pulse Ox
98.6 F 44 17 158/62 94
02/15/25 03:36 02/15/25 05:00 02/15/25 03:36 02/15/25 03:38 02/15/25 03:38
Intake & Output
02/13/25 02/14/25 02/15/25 02/16/25
06:59 06:59 06:59 06:59
Intake Total 720 / 720 960 / 960
Output Total 300 / 300 200 / 200
Balance 420 / 420 760 / 760
Physical Exam
Physical Exam
GEN: No distress, awake, alert, oriented x3
HEENT: supple, anicteric, mmm
LUNGS: CTA b/l, no wheezes/rales
CV: Reg, S1/S2, 1/6 syst murmur
EXT: No clubbing, cyanosis, or edema
NEURO: Gross non-focal
SKIN: Warm, dry, no rash
[2025-02-15 07:36] VITALS: BP 165/69
[2025-02-15 07:47] LABS: Glucose - Point of Care 119 mg/dl (70-99)
[2025-02-15] MEDS: TIKOSYN 500 MCG PO (08:01)
[2025-02-15] MEDS: ELIQUIS 5 MG PO (08:01)
[2025-02-15] MEDS: COZAAR 25 MG PO (08:01)
[2025-02-15] MEDS: NOVOLOG FLEXPEN-LOW RESISTANCE SC (08:02)
[2025-02-15] MEDS: TOPROL XL 25 MG PO (08:02)
[2025-02-15] MEDS: GLUCOPHAGE XR EXTENDED RELEASE 500 MG PO (08:03)
--- NOTE | 2025-02-15 09:17 | W.DS.TRANS ---
DC Summary - Movie Critic
-
Discharge Instructions:
Sleep Apnea Risk Intermediate
Discharge Diagnosis/Procedures Direct admission for Tikosyn load for persistent
atrial fibrillation, conversion pause (7
seconds) 02/13/25, sinus bradycardia, hypertension
Diet Low Fat
Activity No restrictions
Driving Restrictions As prior to admission
Bathing Restrictions None
Blood Work Check non-fasting blood work in 2 weeks to
monitor potassium and kidney function after
starting losartan.
Instructions:
Stand-Alone Forms:
Changes to Home Medications: Yes
Discharge Medications:
DC Medications w/original date entered in [facility]
apixaban 5 mg tablet (Eliquis) 5 mg PO BID #60 tabs 12/27/24
atorvastatin 80 mg tablet 80 mg PO DAILY High Cholesterol 01/30/25
cholecalciferol (vitamin D3) 25 mcg (1,000 unit) tablet (Vitamin D3) 25 mcg PO DAILY Supplement 01/30/25
metformin 500 mg tablet 500 mg PO DAILY Diabetes 01/30/25
terazosin 2 mg capsule 2 mg PO Urinary Issue 01/30/25
benzonatate 100 mg capsule 200 mg (2 x 100 mg) PO TIDPRN PRN Cough #20 caps 02/01/25
ascorbic acid (vitamin C) 25 mg tablet 25 mg PO Daily 02/12/25
multivitamin 1 PO Daily 02/12/25
dofetilide 500 mcg capsule 500 mcg PO Q12 Arrhythmia #60 caps 02/14/25
losartan 25 mg tablet 25 mg PO DAILY Blood pressure #30 tabs 02/14/25
metoprolol succinate 25 mg tablet,extended release 24 hr 25 mg PO DAILY #30 tabs 02/14/25
Home Medication Changes
dofetilide is new
losartan is new
metoprolol dose lowered
Pending Results: No
--- NOTE | 2025-02-15 09:44 | CM ---
CM following for DC planning needs.
Met w/ patient and spouse at bedside.
Plan is for DC to home today.
Pt. offers no concerns or needs at this time.
Call to [facility]-estimated copay for Dofetilide is 29.71$.
3D RX sent by ANG[facility]O.
Plan is for home w/ no needs.
--- NOTE | 2025-02-15 11:34 | PTCARENOTE ---
Pt seen by Aracelis Duque NP and . Telemetry and IV device removed. Discharge instructions reviewed with pt and his regarding medications and their possible side effects, reporting cares and concerns and outpatient lab work and
follow up appointments. Excellent understanding taught back to this RN. Pt escorted out via wheelchair and discharged to home.
== END 2025-02-15 11:05 | disposition home or self-care (01) | DRG 310 ==
LOC: IVU 14:47
PROVIDERS: Physician Assistant Medical; ADMITTING PHYSICIAN Internal Medicine Cardiovascular Disease; FAMILY PHYSICIAN Family Medicine
DX: I48.19 Other persistent atrial fibrillation (principal); I10 Essential (primary) hypertension; E11.8 Type 2 diabetes mellitus with unspecified complications; E78.5 Hyperlipidemia, unspecified; I25.10 Atherosclerotic heart disease of native coronary artery without angina pectoris; I73.9 Peripheral vascular disease, unspecified; I35.0 Nonrheumatic aortic (valve) stenosis; Z79.01 Long term (current) use of anticoagulants; Z79.84 Long term (current) use of oral hypoglycemic drugs; Z95.5 Presence of coronary angioplasty implant and graft
CPT/HCPCS: 80048; 80053; 82962; 83735; 85025; 85027; 86803; 93005

== ENCOUNTER 2025-02-28 16:05 | Inpatient (IN) | payer MEDICARE, OTHER, SELFPAY ==
[2025-02-27 20:47] VITALS: BP 181/103
[2025-02-27 21:05] LABS: % Basophils 0.5 % (0-2); % Eosinophils 5.8 % (0-6); % Immature Granulocytes 0.2 % (0-0.5); % Lymphocytes 18.4 % (20.5-51.1); % Monocytes 9.1 % (1.7-9.3); Absolute Eosinophils 0.3 10^3/uL (0-0.7); Absolute Lymphocytes 1.1 10^3/uL (1.2-3.4); Absolute Monocytes 0.5 10^3/uL (0.1-0.6); Absolute Neutrophils 3.8 10^3/uL (1.4-6.5); Hematocrit 42.4 % (39.0-52.0); Hemoglobin 14.9 g/dL (13.0-18.0); Mean Corp Hgb Conc. 35.1 g/dL (33.0-37.0); Mean Corpuscular Hgb 33.5 pg (27.0-31.0); Mean Corpuscular Volume 95.3 fL (80.0-94.0); Mean Platelet Volume 9.2 fL (7.4-10.4); Nucleated Red Blood Cells % 0 % (-); Platelet Count 199 10^3/uL (130-400); Red Blood Cell Count 4.45 10^6/uL (4.70-6.10); Red Cell Dist. Width 12.9 % (11.5-14.5); White Blood Cell Count 5.8 10^3/uL (4.8-10.8)
[2025-02-27 21:25] LABS: ALT (SGPT) 35 U/L (0-50); AST (SGOT) 23 U/L (17-59); Albumin 4.3 g/dl (3.5-5.0); Alkaline Phosphatase 32 U/L (38-126); Blood Urea Nitrogen 23 mg/dl (9-20); Calcium 9.8 mg/dl (8.4-10.2); Carbon Dioxide 29 mmol/L (22-30); Chloride 103 mmol/L (98-107); Glucose 214 mg/dl (70-99); Potassium 4.1 mmol/L (3.5-5.1); Sodium 140 mmol/L (135-145); Total Bilirubin 0.6 mg/dl (0.2-1.3); Total Protein 6.8 g/dl (6.3-8.2); eGFR > 60.00
[2025-02-27 21:42] VITALS: BMI 24.1
[2025-02-27 21:43] VITALS: BP 140/75
[2025-02-27 22:00] VITALS: BP 156/69
--- NOTE | 2025-02-27 22:03 | ED.GENMED ---
History of Present Illness
General
Chief Complaint: Headache
Source: patient and spouse
Exam Limitations: none
Time Seen by Provider: 02/27/25 21:54
Nursing documentation reviewed up to this point in time: agreed with
History of Present Illness
History of Present Illness:
79-year-old male presents stating he felt irregular fast heart rate started 8 p.m. after eating dinner, denies CP SOB, lightheadedness, denies n/v/d/c.
Pt with history of aortic stenosis, CAD, HTN, HLD, NIDDM, R carotid endarterectomy, cardiac stens x 3, A-fib which was diagnosed 01/30 after syncopal episode on toilet and fall. Admitted then, neg head CT, followed by Dr. Juno Miranda, MARK'd on
Tikosyn 500 mg BID and started Hydralazine 25 mg BID yesterday, has had a total of 3 doses Hydralazine.
Pt had a dull posterior headache all day that became worse since the A fib started at 8 p.m. and he felt it in right side of neck. He denies any new trauma.
Past History
Past History
ED Past Medical History: CAD, HTN, Hypercholesterolemia and NIDDM
ED Past Surgical History: Cardiac and Other (Rcarotid endarterectomy)
Social History
Tobacco: Non-smoker
Alcohol: Occasional
Personal:
Living: with family
Review of Systems
Review of Systems
Allergies reviewed?: Yes
All Other Systems: ROS reviewed and negative except as documented in HPI and ROS
Constitutional: Denies fever or chills
EENT: Reports mouth pain; Denies sore throat
ABD/GI: Denies nausea or vomiting
Skin: Reports no symptoms
Neurological: Denies headache
Phy Exam
Physical Exam
Physical Exam:
GENERAL: No acute distress. A&Ox3.
CONSTITUTIONAL: Afebrile.
EYES: clear, conjunctivae normal
ENMT: moist mucus membranes, Pharynx nl, full range of motion of jaw, no swelling under the tongue, no palpable abscess, skin appears normal, no cellulitis
Neck: Significant right submandibular lymphadenopathy, firm, tender with swelling extending partially under the chin.
RESPIRATORY: Regular respirations, nonlabored, lungs clear.
CARDIOVASCULAR: Regular rate and rhythm, no murmurs, no rubs.
GI: Soft, nontender, normal BS
MUSCULOSKELETAL: Moves with ease. Well perfused.
SKIN: Warm, dry, pink
PSYCH: Normal mood and affect. Well kept, interactive and appropriate
NEUROLOGIC: Awake, alert and oriented. No focal neurological deficits
Course
Orders/Labs/Results
Orders:
Orders
02/27/25 20:48
EKG [Electrocardiogram (*1)] Urgent
Reason for Study: Atrial Fibrillation
EKG- Treatment ONCE
02/27/25 20:57
CMP [Comprehensive Metabolic Panel] Urgent
Complete Blood Count/With Diff Urgent
02/27/25 21:48
EKG [Electrocardiogram (*1)] Urgent
Reason for Study: Atrial Fibrillation
EKG- Treatment ONCE
02/27/25 22:05
Dofetilide [Tikosyn] 500 mcg PO NOW STA
02/27/25 22:41
CT Head W/o Iv Contrast Urgent
Comment:
Reason For Exam: episode confusion last night after Hydralizine
02/28/25 00:45
Apixaban [Eliquis] 5 mg PO NOW STA
02/28/25 00:46
Admit/Transfer Patient As Directed
Co-Sign Provider:
Level of Care: Observation services
Assign to:: Telemetry
Physician / Group: Charly
Diagnosis: A-Fib, Confusion
Reason for Telemetry: Arrhythmia
Date to Stop Telemetry: 03/03/25
Time to Stop Telemetry: 11:00
PRN Pain Medication Management As Directed
May give lesser potent ordered pain med per pt: Yes
preference::
Protocol:: Medication orders for pain may be administered in a
manner that supports deferring to patient preference
when the pt is:
- Requesting an ordered lesser potent pain medication.
Least to most potent pain medications are defined
as: acetaminophen < NSAID < tramadol < opioids
(morphine, oxycodone, hydromorphone).
- Requesting a lesser dose of the same medication IF
ORDERED.
- Requesting a less intrusive route of administration
if both routes are prescribed by the provider (PO <
IV).
02/28/25 00:48
Code Status As Directed
Resuscitation Status: Full Code
02/28/25 01:49
Acetaminophen [Tylenol] 650 mg PO Q4HPRN PRN
Dextrose 50%-Water [Dextrose 50% Syringe] 12.5 grams IV [id number] PRN
Glucagon [GlucaGen] 1 mg IM PRN PRN
02/28/25 01:49
Activity As Directed
Activity Level: Ambulate
With Assistance
Bedside Glucose Monitoring As Directed
Frequency: AC&HS
Additional Instructions:: Change to q6h if pt on TPN, tube feeding or not eating
EKG with chest pain [ECG as needed] As Directed
ECG as needed for:: Chest Pain
I/O [Intake/ Output] As Directed
Frequency: Per unit guidelines
Neurological Checks As Directed
Frequency: q4h
Orthostatic Vital Signs As Directed
Orthostatic VS Frequency: BID
Vital Signs As Directed
Frequency: Per unit guidelines
Oxygen Therapy [O2 Therapy] [RESP] Routine
Titrate/Wean O2 to maintain O2 sat greater than (%): 94
02/28/25 02:00
Flush (0.9% Sodium Chloride) [Flush (Nss)] See Dose Instructions IV PER PROTOCOL
02/28/25 05:38
Basic Metabolic Panel IN AM
Complete Blood Count/No Diff IN AM
02/28/25 Breakfast
2000 calorie (17 carb) Diabetic
At Your Request: Full Participation
02/28/25 07:30
Insulin Aspart Corrective Low [Novolog Flexpen-Low Resistance] See Protocol SC AC
02/28/25 08:00
Amlodipine [Norvasc] 5 mg PO DAILY
Apixaban [Eliquis] 5 mg PO BID
Atorvastatin [Lipitor] 80 mg PO DAILY
Dofetilide [Tikosyn] 500 mcg PO Q12
Metoprolol Xl [Toprol Xl] 25 mg PO DAILY
02/28/25 08:01
CARDIOLOGY CONSULT Routine
Consulting Provider: Diaz Faith
Was physician already notified: Yes
Reason for consult: recurrent afib, HTN urgency
02/28/25 08:04
Enalaprilat [Vasotec] 0.625 mg IV NOW STA
02/28/25 10:37
Enalaprilat [Vasotec] 1.25 mg IV Q6HPRN PRN
02/28/25 15:43
Level of Care Change As Directed
Level of Care: Inpatient admission
Reason for Hospitalization: HTN emergency
Expected length of stay greater than two midnights?: Yes
ELOS- Estimated Length of Stay in days: 2
I certify the patient meets the requirements for IP care: Yes
02/28/25 15:56
NEUROLOGY CONSULT Routine
Consulting Provider: Jaymie Moss
Was physician already notified: Yes
Reason for consult: confusion, CUEVAS, HTN emergency
02/28/25 18:00
Terazosin [Hytrin] 2 mg PO QPM
03/01/25 05:25
Basic Metabolic Panel IN AM
Complete Blood Count/With Diff IN AM
03/01/25 08:00
Aspirin Chewable [Low Strength Aspirin] 81 mg PO DAILY
03/03/25 11:00
DC Protocol for Telemetry ONCE
Abnormal Lab Results
02/27/25 02/28/25 02/28/25
20:57 05:38 08:37
RBC 4.45 L 10^6/uL 3.84 L 10^6/uL
(4.70-6.10) (4.70-6.10)
Hgb 12.9 L g/dL
(13.0-18.0)
Hct 36.8 L %
(39.0-52.0)
MCV 95.3 H fL 95.8 H fL
(80.0-94.0) (80.0-94.0)
MCH 33.5 H pg 33.6 H pg
(27.0-31.0) (27.0-31.0)
Absolute Lymphs (auto) 1.1 L 10^3/uL
(1.2-3.4)
Lymphocytes % 18.4 L %
(20.5-51.1)
BUN 23 H mg/dl 22 H mg/dl
(9-20) (9-20)
Glucose 214 H mg/dl 105 H mg/dl
(70-99) (70-99)
Alkaline Phosphatase 32 L U/L
(38-126)
POC Glucose 118 H mg/dl
(70-99)
02/28/25
11:51
RBC
Hgb
Hct
MCV
MCH
Absolute Lymphs (auto)
Lymphocytes %
BUN
Glucose
Alkaline Phosphatase
POC Glucose 180 H mg/dl
(70-99)
02/28/25 05:38
02/28/25 05:38
Vital Signs
Initial and Last Documented VS:
Initial Vital Signs
Temp Pulse Resp BP Pulse Ox
98.5 F 126 16 181/103 96
02/27/25 20:47 02/27/25 20:47 02/27/25 20:47 02/27/25 20:47 02/27/25 20:47
Last Documented Vital Signs
Temp Pulse Resp BP Pulse Ox
98.5 F 62 14 130/51 94
03/01/25 15:27 03/01/25 15:27 03/01/25 15:27 03/01/25 15:27 03/01/25 18:11
MDM/Problems Addressed
Differential Diagnosis Includes:
TIA, medication side effect
MDM/Problems Addressed:
79-year-old male presents stating he felt irregular fast heart rate started 8 p.m. after eating dinner, denies CP SOB, lightheadedness, denies n/v/d/c.
Pt with history of aortic stenosis, orthostatic hypotension, CAD, HTN, HLD, NIDDM, R carotid endarterectomy, cardiac stens x 3, A-fib which was diagnosed 01/30 after syncopal episode on toilet and fall. Admitted then, neg head CT, followed by
Juno Miranda, MARK'd on Tikosyn 500 mg BID and started Hydralazine 25 mg BID yesterday, has had a total of 3 doses Hydralazine.
Pt states he had headache after he took his first dose of hydralazine last night 8 p.m. and he became confused, 'I couldn't get anything to work, I didn't know what to do,' states the confusion episode was 'really scary and I thought he was
having a stroke.'
Pt states h/a is 3/10 now, down from 04/16.
10:00 PM:
On arrival 852, EKG showing atrial flutter with 2-1 AV conduction, heart rate 156.
At 953 it was noted the patient converted to normal sinus where he has been since with a heart rate of 95 with occasional PVCs
Patient states since his heart rate normalized, his headache has improved to 3/10 from 04/16.
CBC unremarkable
CMP with no clinically significant abnormality
In further conversation with patient and , pt states he had headache after he took his first dose of hydralazine last night 8 p.m. and he became confused, they said the confusion episode was 'really scary and I thought he was having a stroke.'
Pt states h/a is 3/10 now, down from 04/16.
kPt neuro exam is unremarkable
Pt given his p.m. dose of Tikosyn
With recent afib, anticoagulated, difficulty getting the a fib under control, episode of confusion last p.m., fall with head injury 2 weeks ago, persistent headache, will get head CT.
Most likely side effect from Hydralazine, but need to rule out acute brain event
Head CT negative
Plan: Admit: Episode confusion, possible TIA versus side effect from medication
Hospitalist notified of admission
Chronic conditions affecting care: HTN, CAD and Arrhythmia
*Critical Care Note
Total Time (30-74mins, 75-104mins- exclusive of procedures): Not Applicable
ED Attending Note
-
Portions of this chart may have been created with voice recognition software.� Occasional wrong word or��sound alike� substitutions may have occurred due to the inherent limitations of voice recognition software.
Discharge Plan
Departure
Patient Disposition: Admit
Date of Disposition: 02/27/25
Time of Disposition: 23:38
Presentation/result/management discussed w/ accepting MD/DO: Hospitalist
Condition: Good
Discharge Problem:
Paroxysmal A-fib, Atrial fibrillation with RVR, Headache, Episode of confusion
Interventions
Interventions:
*Risk Screen - Suicide Last Done: 02/27/25 20:42
*General Assessment Last Done: 02/27/25 20:47
*Neglect/Abuse Screening Last Done: 02/27/25 20:42
*ED- Fall Risk Assessment Last Done: 02/27/25 20:42
*ED COVID-19 Vaccine History Last Done: 02/27/25 20:47
*Nursing Disposition Last Done: 02/28/25 15:47
ED- Neurological Assessment Last Done: 02/27/25 23:55
Discharge Date and Time
Discharge Date/Time: 02/28/25 15:48
[2025-02-27] MEDS: TIKOSYN 500 MCG PO (22:18)
[2025-02-27 23:00] VITALS: BP 166/78
[2025-02-28] VITALS (21 sets, daily range): BP systolic 152–226; BP diastolic 46–83; PULSE 51–65
--- NOTE | 2025-02-28 00:49 | HPS.HSE ---
Family Physician
-
Family Physician: Alejandro Cornelius
Chief Complaint
-
Malaise, Headache, Confusion
History of Present Illness
Patient is a 79y M with PMH significant for ASCVD, hypertension and A-Fib who presents to ED complaining of headache, malaise and confusion. History obtained from patient and his at the bedside. Patient was recently hospitalized for Tikosyn
loading (02/12-02/16). He has maintained NSR since that time; however, his BP has been uncontrolled. Last PM he was newly started on hydralazine. After his first dose last PM, noted that he seemed very confused. This AM he woke with bilateral
temporal headache. He felt generally poor all day - could not describe any specific / focal complaints other than headache. Had decreased appetite and general malaise. No vision changes, weakness / numbness, abdominal pain, N/V/D, fevers, cough,
etc.
This PM he checked his pulse as per usual with his Cardia device and this showed him to be back in A-Fib. He presented to the ED for further evaluation.
During his ED evaluation, patient spontaneously converted to NSR.
At the time of my examination, he is resting comfortably. He has had no confusion since last PM. He states that his headache has resolved.
Medical History
Past Medical History
Past Medical History: Reports Other
Additional Past Medical History:
ASCVD (CAD, Carotid Disease)
Hypertension
DM-II
Colon Polyps
Paroxysmal Atrial Fibrillation
Past Surgical History: Reports Other
Additional Past Surgical History:
Descending Coronary Artery Atherectomy
PTCA with Stents
Right CEA
Cataracts
Social History
Tobacco: Former Smoker (Quit smoking 35 years ago. Approx 20 pack years total use.)
Alcohol: Occasional
Drug: None
Family History
Family History: Not pertinent
Allergies / Home Medications
Allergies reflects when Allergies were last updated in [facility].
Home Medications with original date entered in [facility]
Allergy/Medication List:
Allergies
Allergy/AdvReac Type Severity Reaction Status Date / Time
No Known Allergies Allergy Verified 02/27/25 21:42
Home Medications
apixaban 5 mg tablet (Eliquis) 5 mg PO BID #60 tabs 12/27/24
atorvastatin 80 mg tablet 80 mg PO DAILY High Cholesterol 01/30/25
cholecalciferol (vitamin D3) 25 mcg (1,000 unit) tablet (Vitamin D3) 25 mcg PO DAILY Supplement 01/30/25
metformin 500 mg tablet 500 mg PO DAILY Diabetes 01/30/25
terazosin 2 mg capsule 2 mg PO DAILY Urinary Issue 01/30/25
benzonatate 100 mg capsule 200 mg (2 x 100 mg) PO TIDPRN PRN Cough #20 caps 02/01/25
ascorbic acid (vitamin C) 25 mg tablet 25 mg PO Daily 02/12/25
multivitamin 1 PO Daily 02/12/25
dofetilide 500 mcg capsule 500 mcg PO Q12 Arrhythmia #60 caps 02/14/25
metoprolol succinate 25 mg tablet,extended release 24 hr 25 mg PO DAILY #30 tabs 02/14/25
hydralazine 25 mg tablet 25 mg PO BID 02/27/25
Review of Systems
-
History Source: Patient
A 12 point ROS was completed and negative except as noted: Yes
Constitutional: Reports Fatigue; Denies Fever or Chills
EENT: Denies Sore Throat
Respiratory: Denies Cough or Trouble Breathing
Cardiac: Denies Chest Pain or Palpitations
Abdomen/GI: Denies Abdominal Pain, Nausea, Vomiting or Diarrhea
: Denies Dysuria or Frequency
Musculoskeletal: Denies Joint Pain or Edema
Skin: Denies Itching or Rash
Neurological: Reports Headache; Denies Dizzy, Weakness or Numbness
Psych: Denies Depression or Anxiety
Physical Exam
Vital Signs
Vital Signs
Temp Pulse Resp BP Pulse Ox
99.4 F 56 20 152/62 94
02/27/25 21:43 02/28/25 00:30 02/27/25 23:00 02/28/25 00:00 02/28/25 00:30
Physical Exam
General: Other (79y M in no acute distress)
HEENT: Moist mucous membranes and PERRLA
Respiratory: Clear; No Wheezes, Rales or Rhonchi
Cardiac: S1/S2, Regular Rhythm and Murmur (II/ RASHEED)
GI: Soft, Non Tender, Non Distended and Normal Bowel Sounds
Musculoskeletal: No Clubbing, No Cyanosis and No Edema
Neuro: AO x 3 and Nonfocal/grossly intact
Laboratory Results
-
02/27/25 20:57
02/27/25 20:57
Laboratory Results
Total Bilirubin 0.6 mg/dl (0.2-1.3) 02/27/25 20:57
AST 23 U/L (17-59) 02/27/25 20:57
ALT 35 U/L (0-50) 02/27/25 20:57
Alkaline Phosphatase 32 U/L (38-126) L 02/27/25 20:57
Impression/Plan
-
A/P: Patient is a 79y M with PMH significant for ASCVD, hypertension and A-Fib who presents to ED for evaluation of confusion, headache and malaise.
Paroxysmal Atrial Fibrillation
- Observe overnight for further evaluation and treatment.
- Spontaneously converted here in the ED.
- Continue usual med regimen including Tikosyn and Eliquis.
- Monitor on tele overnight.
Headache / Confusion
- ? etiology. Symptoms started shortly after hydralazine (1st dose last PM - last dose this AM).
- Would hold further doses for now.
- Follow for any new / recurrent symptoms.
ASCVD
- Stable. No chest pain or dyspnea.
- Continue current CV med regimen including ASA, statin, etc.
Benign Hypertension
- BP has been somewhat labile over past few admissions.
- BP regimen has been significantly adjusted in that time - previously on candesartan and amlodipine.
- Hold hydralazine as noted above.
- Add back amlodipine for now and adjust regimen as needed for adequate control.
DM-II
- Stable. Hold PO medications acutely.
- Follow glucose and cover with SSI as needed.
DVT Prophylaxis: On Eliquis
Code Status: Full
[2025-02-28] MEDS: ELIQUIS 5 MG PO ×3 (01:03→20:22)
--- NOTE | 2025-02-28 03:27 | DOWNTIME ---
There was a [employer] Client Trimming Assembler Downtime on 02/28/2025 from 0200 to 02/29/2024 at 0318 . Downtime documentation of patient's care, including medication administrations, has been reconciled in the electronic record per guidelines. Refer to the
patient's paper chart under the miscellaneous tab to see printed paper medication records and downtime forms.
--- NOTE | 2025-02-28 03:31 | DOWNTIME ---
There was a [employer] Client Gis Software Engineer Downtime on 02/28/2025 from 0200 to 02/29/2024 at 0318 . Downtime documentation of patient's care, including medication administrations, has been reconciled in the electronic record per guidelines. Refer to the
patient's paper chart under the miscellaneous tab to see printed paper medication records and downtime forms.
[2025-02-28 06:10] LABS: Hematocrit 36.8 % (39.0-52.0); Hemoglobin 12.9 g/dL (13.0-18.0); Mean Corp Hgb Conc. 35.1 g/dL (33.0-37.0); Mean Corpuscular Hgb 33.6 pg (27.0-31.0); Mean Corpuscular Volume 95.8 fL (80.0-94.0); Mean Platelet Volume 9.4 fL (7.4-10.4); Platelet Count 187 10^3/uL (130-400); Red Blood Cell Count 3.84 10^6/uL (4.70-6.10); Red Cell Dist. Width 13.1 % (11.5-14.5); White Blood Cell Count 5.6 10^3/uL (4.8-10.8)
[2025-02-28 06:34] LABS: Blood Urea Nitrogen 22 mg/dl (9-20); Calcium 9.2 mg/dl (8.4-10.2); Carbon Dioxide 26 mmol/L (22-30); Chloride 107 mmol/L (98-107); Estimated Creatinine Clearance 68 ml/min; Glucose 105 mg/dl (70-99); Sodium 140 mmol/L (135-145); eGFR > 60.00
[2025-02-28] MEDS: NORVASC 5 MG PO (07:38)
[2025-02-28] MEDS: LIPITOR 80 MG PO (07:38)
[2025-02-28] MEDS: TOPROL XL 25 MG PO (07:38)
[2025-02-28] MEDS: VASOTEC 0.625 MG IV (08:14)
[2025-02-28 08:38] LABS: Glucose - Point of Care 118 mg/dl (70-99)
[2025-02-28] MEDS: NOVOLOG FLEXPEN-LOW RESISTANCE SC ×2 (09:02→17:30)
--- NOTE | 2025-02-28 09:55 | PTCARENOTE ---
pt aaox3. states no pain. does have a flat affect. pt bp elevated MD made aware one time med ordered along with standing am meds given. pt and very consirned about home medications vs what he is taking in the hospital. reviewed current med
ordered plan of care and that his medications may change while in the hospital but they will have a list to take home when he is discharged.
--- NOTE | 2025-02-28 10:24 | CM ---
Addendum entered by Renea Ceballos 02/28/25 10:38:
CANALES letter explained and signed
Original Note:
Met with patient and at bedside in the ED
Pharmacy verified: [facility] @ [address] [place] [address]
Patient and live in a split level home; 1 step to enter; 8 steps between floors; railings on stairs; powder room on main level; upper level bedroom and bath w/stall shower
PLOF: reported he is independent with ambulation, stairs, and ADLs; retired; drives
DME: [employer]; has a shower chair if needed
will transport home
NO SNF or Home Health utilization history
Discharge plan pending hospital course; Case Management will monitor for discharge needs/services and support accordingly
[2025-02-28] MEDS: TIKOSYN 500 MCG PO ×2 (11:51→20:22)
[2025-02-28 11:53] LABS: Glucose - Point of Care 180 mg/dl (70-99)
--- NOTE | 2025-02-28 13:47 | W.PN.HOSP.TC ---
Today's Communication/Plan
-
Assessment / Plan
Assessment / Plan
General: No Apparent Distress, Comfortable and Conversant
HEENT: NormoCephalic, Moist mucous membranes, Atraumatic
Respiratory: Clear and Non Labored Respirations
Cardiac: S1/S2 and Regular Rhythm; heart rate 45, 2/6 systolic murmur left sternal border
GI: Soft, Non Tender, Non Distended and Normal Bowel Sounds
Musculoskeletal: No Edema, no deformity
Skin: Warm and dry
: NO Patterson
Neuro: Awake, Alert, Nonfocal/grossly intact
Psych: Calm and cooperative
Mr. Kirk is a 79-year-old male with a medical history of CAD (PCI with stents), carotid artery disease (status post right carotid endarterectomy), paroxysmal A-fib (recently started on dofetilide, on Eliquis), hypertension, and
nni-riymqst-yyewvsifb diabetes mellitus who presented with headache, confusion, and recurrent A-fib. He had recently been hospitalized for new onset A-fib, was loaded with Tikosyn (02/12-02/16), and converted to normal sinus rhythm. He has since had
uncontrolled blood pressure. He was started on hydralazine and after his first dose his noted that he became very confused. He later developed a headache and when checking his rate and rhythm at home they noticed that he had reverted back to
A-fib. He then sought medical treatment in the emergency department. He spontaneously converted back to normal sinus rhythm in the ED and his headache resolved. He was admitted for monitoring. However he has since developed uncontrolled
hypertension and his headache has recurred.
Hypertensive urgency:
- Blood pressure this morning was 226/70, his headache was starting to recur
- No neurologic symptoms, shortness of breath, chest pain, or overt lab abnormalities
- Blood pressure improved after being given a dose of IV enalaprilat in addition to his oral Toprol and amlodipine
- Will order IV enalaprilat as needed for SBP greater than 170
- Continue amlodipine 5 mg p.o. twice (which he had previously been on) daily and metoprolol succinate 25 mg p.o. daily for now, may decrease beta-mario due to bradycardia and Tikosyn use
- Continue telemetry monitoring
- To be evaluated by cardiology
Paroxysmal A-fib:
- Recently loaded with Tikosyn 02/12- and converted to normal sinus rhythm
- Reverted to A-fib prior to admission but is now back in normal sinus rhythm
- Continuing beta-blockade with metoprolol succinate 25 mg daily, may need to reduce dose to avoid bradycardia
- Continue Tikosyn
- Anticoagulation with Eliquis
- Further recommendations per cardiology
CAD:
- Chronic, stable
- Continue low-dose aspirin and high intensity statin
Obn-gqcpkug-rjuqslrup diabetes mellitus:
- Currently stable
- Has metformin at home, will cover with sliding scale insulin while inpatient
DVT prophylaxis: On Eliquis for A-fib
CODE STATUS: Full code
Anticipated Discharge: 24 - 48 hours
Subjective/Interval History
-
Date of Service: February 28, 2025
Patient was seen and examined at bedside this morning. His headache is starting to recur and his blood pressure is significantly elevated with SBP around 220. He is being given a dose of IV enalaprilat in addition to his scheduled oral metoprolol
and amlodipine.
Objective Data
-
Labs:
Laboratory Results
02/28/25
05:38
WBC 5.6
Hgb 12.9 L
Hct 36.8 L
Plt Count 187
Sodium 140
Potassium 4.0
Chloride 107
Carbon Dioxide 26
BUN 22 H
Creatinine 0.9
Glucose 105 H
Calcium 9.2
Vital Signs:
Vital Signs
Temp Pulse Resp BP Pulse Ox
97.9 F 63 20 226/70 99
02/28/25 09:05 02/28/25 08:14 02/27/25 23:00 02/28/25 08:14 02/28/25 07:30
I&O
02/27/25 02/28/25 03/01/25
06:59 06:59 06:59
Intake Total 240 / 240
Balance 240 / 240
Review of Systems
-
History Source: Patient
All other systems: Reviewed and negative
Neuro: Reports Headache
Physical Exam
-
General: No Apparent Distress
--- NOTE | 2025-02-28 14:37 | CON.CAR ---
Addendum entered and electronically signed by Diaz Faith MD 02/28/25 16:40:
I saw and examined the patient.
The Business Services Coordinator's note was reviewed and I agree with the note.
Comment: Briefly, 79-year-old man past medical history of paroxysmal atrial fibrillation and hypertension presenting with atrial fibrillation and rapid ventricular response, severe range blood pressures and transient episode of altered mental
status/confusion
Initially presenting in atrial fibrillation with rapid ventricular response but quickly converted back to sinus rhythm
Will continue usual Tikosyn dose to maintain sinus rhythm
Bradycardia is noted, would hold beta-mario and keep on telemetry
Continue oral anticoagulation
In regards to his hypertension we are reviewing multiple recent medication changes
Patient is concerned that hydralazine was the cause of his episode of altered mental status
Agree with amlodipine 5 mg daily
Continue candesartan 32 mg daily which she was on previously
Would likely benefit from a diuretic however hydrochlorothiazide interacts with Tikosyn and patient had adverse reaction to chlorthalidone in the past
Spironolactone may be an option if were not able to control his blood pressure with the above medications
In regards to his transient altered mental status there was initially concern that he may have experienced a TIA
CT head was unremarkable
Given his risk factors I think an MRI of the brain and neurology evaluation would be reasonable
Rest per Marcia Zuleta
Original Note:
Consultation
Consultation Request
Date/Time Consultation Requested: 02/28/25
Date/Time Consultation Performed: 02/28/25
Requesting Provider: Dr. Brewer
Performing Provider: Dr. Faith
Reason for Consultation: HTN emergency, paroxysmal Afib on Tikosyn
Medical History
-
History of Present Illness:
Patient came to [facility] last night with CUEVAS and cardiology has been consulted for recurrence of Afib. Patient was admitted to 01/29/25 until 02/01/25 with syncope in the setting of COVID and at that time his previous doses of amlodipine 5 mg daily
and candesartan 32 mg daily were stopped. Patient was seen by Dr. Miranda in the office on 02/08/2025 and BP was 140/70 on Toprol XL 50 mg BID. Patient was also noted to be in A-fib with RVR and was recommended elective admission the following week
for Tikosyn loading. Patient was then admitted for Tikosyn loading 02/12/25 until 02/15/2025 and during that admission patient had a 7-second conversion pause and was bradycardic so Toprol XL was reduced to 25 mg daily. Also during that admission
losartan 25 mg daily was added for increasing BP. Patient was discharged to home and call the office on 02/21/2025 to report increased BP at which time Dr. Miranda instructed the patient to stop losartan and resume his previous dose of candesartan,
patient was to monitor BP and call our office back. Patient called the office back on 02/25/2025 to report that he was still hypertensive and hydralazine 25 mg BID was added to his regimen. Patient reports that after taking the first dose of
hydralazine on the night of 02/26/25 he was disoriented and his describes that he was unable to use the glucometer which he uses on a daily basis and was unable to use his Kartia monitor which he also uses on a daily basis. No focal or
lateralizing weakness. The next day the patient woke up and after eating breakfast he was able to take another dose of hydralazine and felt that shortly after he started with a headache that lasted all day long. In the evening the patient checked
his rhythm using his K[employer]ia monitor and he was in A-fib with RVR and given the ongoing headache, the reaction to hydralazine the night before and the A-fib seen on the monitor the patient's brought him to the ER. Eventually patient
spontaneously converted to SR without any clear symptomatic difference.
PMH:
h/o HTN
Recent admission for Tikosyn load 02/12/25 until 02/15/25
Recent admission for syncope 01/29/2025 until 02/01/25
h/o 7 second conversion pause, spontaneously converted with Tikosyn load 02/13/25
Persistent Afib
Diagnosed at time of colonoscopy 12/27/2024
Paroxysmal typical atrial flutter
Chronic Eliquis OAC
Mild to moderate peak/mean 34/18 mmHg and DEBBIE 1.4 cm sq
CAD
s/p rotational atherectomy LAD 1992
s/p Xience AN to RCA and PLB 2008
s/p right CEA 11/2012
HTN
DM 2
Hyperlipidemia
PAD with claudication
Past Medical History
Past Medical History: Other (in HPI)
Past Surgical History: Cardiac (PCI, right CEA)
Social History
Tobacco: Former Smoker (stopped smoking cigarettes, but still smokes cigars)
Alcohol: Occasional (Once a month or less)
Drug: None
Personal:
Living: With Family
Employment: Retired
Family History
Family History: Cancer and Hypertension
Allergies / Home Medications
Allergy/AdvReac Type Severity Reaction Status Date / Time
No Known Allergies Allergy Verified 02/27/25 21:42
�Medication �Instructions �Recorded �Confirmed �Type
apixaban 5 mg tablet (Eliquis) 5 mg PO BID #60 tabs 12/27/24 02/28/25 Rx
atorvastatin 80 mg tablet 80 mg PO QPM High Cholesterol 01/30/25 02/28/25 History
cholecalciferol (vitamin D3) 25 25 mcg PO DAILY Supplement 01/30/25 02/28/25 History
mcg (1,000 unit) tablet (Vitamin
D3)
metformin 500 mg tablet 500 mg PO DAILY Diabetes 01/30/25 02/28/25 History
terazosin 2 mg capsule 2 mg PO QPM Urinary Issue 01/30/25 02/28/25 History
benzonatate 100 mg capsule 200 mg (2 x 100 mg) PO TIDPRN PRN 02/01/25 02/28/25 Rx
Cough #20 caps
therapeutic multivitamin 1 tab PO DAILY ##0 02/12/25 02/28/25 History
dofetilide 500 mcg capsule 500 mcg PO Q12 Arrhythmia #60 caps 02/14/25 02/28/25 Rx
metoprolol succinate 25 mg 25 mg PO DAILY #30 tabs 02/14/25 02/28/25 Rx
tablet,extended release 24 hr
hydralazine 25 mg tablet 25 mg PO BID 02/27/25 02/28/25 History
ascorbic acid (vitamin C) 500 mg 500 mg PO DAILY 02/28/25 02/28/25 History
tablet (Vitamin C)
Review of Systems
-
History Source: Patient and Family ( and sister in law helping with HPI)
All other systems: Negative unless noted
Physical Exam
Vital Signs
Temp Pulse Resp BP Pulse Ox
97.9 F 47 20 169/57 99
02/28/25 09:05 02/28/25 13:45 02/27/25 23:00 02/28/25 13:00 02/28/25 07:30
GEN: NAD. AAOx3
HEENT: EOMI
LUNGS: RA. No audible wheeze
CV: SR on tele. Reg
EXT: No edema B/L
NEURO: No focal or lateralizing weakness.
SKIN: No rash
Lab Results
02/28/25 05:38
02/28/25 05:38
Impression / Plan
-
PCP: Dr. Cornelius
Cardiology: Dr. Tristan Miranda
Impression:
Admitted with CUEVAS and HTN 02/27/25
HTN emergency
CUEVAS
Confusion PM
h/o HTN
Recent admission for Tikosyn load 02/12/25 until 02/15/25
Recent admission for syncope 01/29/2025 until 02/01/25
h/o 7 second conversion pause, spontaneously converted with Tikosyn load 02/13/25
Persistent Afib
Diagnosed at time of colonoscopy 12/27/2024
Paroxysmal typical atrial flutter
Chronic Eliquis OAC
Mild to moderate peak/mean 34/18 mmHg and DEBBIE 1.4 cm sq
CAD
s/p rotational atherectomy LAD 1992
s/p Xience AN to RCA and PLB 2008
s/p right CEA 11/2012
HTN
DM 2
Hyperlipidemia
PAD with claudication
Echo 01/15/2025: EF 55 to 60%, mild MR, mild to moderate peak/mean 34/18 mmHg and DEBBIE 1.4 cm sq, mild aortic regurgitation, mild TR
Plan:
-Patient came to [facility] ER last night with CUEVAS and cardiology has been consulted for recurrence of Afib. Patient was admitted to 01/29/25 until 02/01/25 with syncope in the setting of COVID and at that time his previous doses of amlodipine 5 mg daily
and candesartan 32 mg daily were stopped. Patient was seen by Dr. Miranda in the office on 02/08/2025 and BP was 140/70 on Toprol XL 50 mg BID. Patient was also noted to be in A-fib with RVR and was recommended elective admission the following week
for Tikosyn loading. Patient was then admitted for Tikosyn loading 02/12/25 until 02/15/2025 and during that admission patient had a 7-second conversion pause and was bradycardic so Toprol XL was reduced to 25 mg daily. Also during that admission
losartan 25 mg daily was added for increasing BP. Patient was discharged to home and call the office on 02/21/2025 to report increased BP at which time Dr. Miranda instructed the patient to stop losartan and resume his previous dose of candesartan,
patient was to monitor BP and call our office back. Patient called the office back on 02/25/2025 to report that he was still hypertensive and hydralazine 25 mg BID was added to his regimen. Patient reports that after taking the first dose of
hydralazine on the night of 02/26/25 he was disoriented and his describes that he was unable to use the glucometer which he uses on a daily basis and was unable to use his Kartia monitor which he also uses on a daily basis. No focal or
lateralizing weakness. The next day the patient woke up and after eating breakfast he was able to take another dose of hydralazine and felt that shortly after he started with a headache that lasted all day long. In the evening the patient checked
his rhythm using his K[employer]ia monitor and he was in A-fib with RVR and given the ongoing headache, the reaction to hydralazine the night before and the A-fib seen on the monitor the patient's brought him to the ER. Eventually patient
spontaneously converted to SR without any clear symptomatic difference.
-ECG reviewed by me on admission to the ER last night looks like typical atrial flutter with 2-1 conduction. EKG an hour later again reviewed by me looks like SR with occasional PVCs.
-Telemetry reviewed by me and patient remains in SR. He is asymptomatic and denies palpitations.
-Patient noted to have ongoing HTN. The last 2 admissions and outpatient medication changes reviewed between myself, patient, and [id number]. Timeline described clearly above and I confirmed the medication list with his which
currently includes Toprol-XL 25 mg daily, candesartan 32 mg daily and hydralazine 25 mg BID.
-Continue candesartan 32 mg daily
-Stop Toprol-XL due to bradycardia
-Stop hydralazine due to confusion with first dose and headache with second dose
-Cannot add HCTZ due to interaction with Tikosyn. Patient also reports previous adverse reaction with chlorthalidone back in 2019.
-One option to consider would be to lower the dose of Tikosyn or even discontinue Tikosyn and then start amlodipine 5 mg daily which previously worked very well for him.
-Another option would be to stop Tikosyn and start amiodarone.
-Cont Eliquis 5 mg BID (age 79, Cre 0.9)
-Check MRI brain without contrast due to confusion and then CUEVAS and HTN emergency. Consult neurology pending results.
-Changed from observation to inpatient admission status.
[2025-02-28] MEDS: NOVOLOG FLEXPEN-LOW RESISTANCE 1 UNITS SC (14:50)
[2025-02-28] MEDS: VASOTEC 1.25 MG IV (16:26)
--- NOTE | 2025-02-28 17:06 | CON.NEURO ---
Consultation
Order
Date of Consultation: 02/28/25
Requesting Provider: Marcia Zuleta PA-C
Reason for Consult: Confusion, headache, hypertensive emergency
Neurology Consultation Note.
HPI: This is a 79-year-old RH man who presented to [facility] on February 27, 2025 with tachycardia.
The patient reports experiencing a period of confusion on 02/26/2025. During this episode, which lasted approximately 3 to 5 minutes, he struggled with simple tasks such as putting his arm in a blood pressure cuff and correctly using his cardiac
monitoring device.
No reports of change in vision, speech, sensation or strength. Mr. Kirk reports experiencing headaches yesterday, which have since resolved. He rarely gets headaches typically. He was taking Eliquis at the time of his confusion episode.
The patient also mentions a longstanding tremor that has been present for about 10 years. The tremor sometimes impacts his ability to perform tasks like using a screwdriver.
ER VS: 181/103, 126�149-44, afebrile.
EKG: A flutter at 156
PDMP: None.
Labs: Glucose�214, normal sodium, creatinine�1.1,, normal WBCs, platelets
CT head wo contrast�no acute abnormalities
PMH: A-Fib/A Flutter, PAD, CAD, , HTN, DLP, DM, BPH, SARS Cov 2 (01/30/2025), vitamin D deficiency
PSH: R CEA, PTCI, Bilateral cataract surgery
SH: , retired banker, ambulates with a walker, drives, non-smoker, no history excess alcohol
FH: Not contributory to current presentation
All:NKDA
ROS: Constitutional: Negative. Negative for chills, fever and unexpected weight change.
HENT: Negative for ear pain, hearing loss, tinnitus and trouble swallowing.
Eyes: Negative. Negative for photophobia, pain and visual disturbance.
Respiratory: Negative for cough, choking and shortness of breath.
Cardiovascular: Negative for chest pain, palpitations and leg swelling.
Gastrointestinal: Negative for abdominal pain and vomiting.
Endocrine: Negative. Negative for cold intolerance.
Genitourinary: Negative for dysuria, flank pain and urgency.
Musculoskeletal: Negative for back pain, gait problem, neck pain and neck stiffness.
Skin: Negative for rash.
Allergic/Immunologic: Negative. Negative for immunocompromised state.
Neurological: Positive for transient confusion, positive for chronic hand tremor
General: Well developed. In no acute distress.
Cardio: Regular rate and rhythm without murmur. Extremities are without cyanosis or edema.
Neuro:
Mental Status: Alert, oriented to person, place, month, year. Date was incorrect. Impaired attention and preserved comprehension. Follows simple requests consistently. No aphasia or hemineglect.
Cranial Nerves: Pupils are equally round, surgical. EOMs full. Visual desir full to confrontation. No ptosis. No nystagmus. V1-V3 intact to light touch and pinprick bilaterally, symmetric. Face symmetric. Normal hearing AU. The palate
elevated well. SCMs and traps 5/5. Tongue midline. No dysarthria.
Motor: Normal bulk and tone. No pronator or arm drift. Strength 5/5 throughout. No clonus.
Reflexes: 0+ throughout the upper extremities and knees. Plantar responses flexor bilaterally.
Sensory: Preserved vibration at the ankles
Coordination: Bilateral action right greater than left hand tremor.
Gait: deferred
Assessment and Plan:
I. Multifactorial encephalopathy (vascular, metabolic)
II. Action hand tremor, nondisabling
III. A-Fib/A Flutter
IV. History of R CEA
-Continue Telemetry monitoring
-Please obtain brain MRI without ale
-Continue aspirin 81 mg once a day
- Please check vitamin B12, urine tox, TFTs, ESR, CRP
-DVT prophylaxis.
I personally reviewed all radiology and labs along with past medical records pertinent to current medical problems. Total time spent in patient care is 60 minutes.
Thank you for allowing us to participate in the care of this patient. We will continue to follow. Please do not hesitate to contact us with any questions or concerns.
Subjective/Objective
Subjective Data
Date of Service: February 28, 2025
Objective Data
Vital Signs
Temp Pulse Resp BP Pulse Ox
36.7 C 47 20 170/60 94
02/28/25 16:00 02/28/25 17:01 02/28/25 16:00 02/28/25 17:01 02/28/25 16:00
Lab Results
02/28/25 05:38
02/28/25 05:38
Sodium 140 mmol/L (135-145) 02/28/25 05:38
Potassium 4.0 mmol/L (3.5-5.1) 02/28/25 05:38
BUN 22 mg/dl (9-20) H 02/28/25 05:38
Glucose 105 mg/dl (70-99) H 02/28/25 05:38
Calcium 9.2 mg/dl (8.4-10.2) 02/28/25 05:38
Patient Allergies
No Known Allergies Allergy (Verified 02/27/25 21:42)
Medications
-
Active Medications
Generic Name Dose Route Start Last Admin
Trade Name Freq PRN Reason Stop Dose Admin
Acetaminophen 650 mg 02/28/25 01:49
Acetaminophen 325 Mg Tablet PO 03/28/25 01:48
Q4HPRN PRN
Mild Pain / Temp > 101
Amlodipine Besylate 5 mg 02/28/25 08:00 02/28/25 07:38
Amlodipine 5 Mg Tablet PO 03/28/25 07:59 5 mg
DAILY SIENA Administration
Apixaban 5 mg 02/28/25 08:00 02/28/25 07:38
Apixaban (Eliquis) 5 Mg Tablet PO 03/28/25 07:59 5 mg
BID SIENA Administration
Aspirin 81 mg 03/01/25 08:00
Aspirin 81 Mg Chewable Tablet PO 03/29/25 07:59
DAILY SIENA
Atorvastatin Calcium 80 mg 02/28/25 08:00 02/28/25 07:38
Atorvastatin (Lipitor) 80 Mg Tablet PO 03/28/25 07:59 80 mg
DAILY SIENA Administration
Candesartan Cilexetil 32 mg 02/28/25 17:00
Candesartan 16 Mg Tablet PO 03/28/25 16:59
DAILY SIENA
Dextrose 12.5 grams 02/28/25 01:49
Dextrose 50% (0.5 Grams/Ml) 50 Ml Syringe IV 03/28/25 01:48
[id number] PRN
hypoglycemia
Protocol
Dofetilide 500 mcg 02/28/25 08:00 02/28/25 11:51
Dofetilide 500 Mcg Capsule PO 03/28/25 07:59 500 mcg
Q12 SIENA Administration
Enalaprilat 1.25 mg 02/28/25 10:37 02/28/25 16:26
Enalaprilat 1.25 Mg/Ml Vial IV 03/28/25 10:36 1.25 mg
Q6HPRN PRN Administration
SBP >170
Glucagon 1 mg 02/28/25 01:49
Glucagon 1 Mg Vial IM 03/28/25 01:48
PRN PRN
hypoglycemia
Protocol
Insulin Aspart 0 units 02/28/25 07:30 02/28/25 14:50
Insulin Aspart Low Resistance 300 Units/3 Ml Pen.Injctr SC 03/28/25 07:29 1 units
AC SIENA Administration
Protocol
Metoprolol Succinate 25 mg 02/28/25 08:00 02/28/25 07:38
Metoprolol 25 Mg Extended Release Tablet PO 03/28/25 07:59 25 mg
DAILY SIENA Administration
Sodium Chloride 0 flush 02/28/25 02:00
Sodium Chloride 0.9% (Flush) Syringe IV 03/28/25 01:59
PER PROTOCOL SIENA
Terazosin HCl 2 mg 02/28/25 18:00
Terazosin 1 Mg Capsule PO 03/28/25 17:59
QPM SIENA
Home Medications
�Medication �Instructions �Recorded
apixaban 5 mg tablet (Eliquis) 5 mg PO BID #60 tabs 12/27/24
atorvastatin 80 mg tablet 80 mg PO QPM High Cholesterol 01/30/25
cholecalciferol (vitamin D3) 25 25 mcg PO DAILY Supplement 01/30/25
mcg (1,000 unit) tablet (Vitamin
D3)
metformin 500 mg tablet 500 mg PO DAILY Diabetes 01/30/25
terazosin 2 mg capsule 2 mg PO QPM Urinary Issue 01/30/25
benzonatate 100 mg capsule 200 mg (2 x 100 mg) PO TIDPRN PRN 02/01/25
Cough #20 caps
therapeutic multivitamin 1 tab PO DAILY ##0 02/12/25
dofetilide 500 mcg capsule 500 mcg PO Q12 Arrhythmia #60 caps 02/14/25
metoprolol succinate 25 mg 25 mg PO DAILY #30 tabs 02/14/25
tablet,extended release 24 hr
hydralazine 25 mg tablet 25 mg PO BID 02/27/25
ascorbic acid (vitamin C) 500 mg 500 mg PO DAILY 02/28/25
tablet (Vitamin C)
Vital Signs and Labs
-
Vital Signs and Labs:
Vital Signs
Temp Pulse Resp BP Pulse Ox
36.7 C 47 20 170/60 94
02/28/25 16:00 02/28/25 17:01 02/28/25 16:00 02/28/25 17:01 02/28/25 16:00
Lab Results
02/28/25 05:38
02/28/25 05:38
Sodium 140 mmol/L (135-145) 02/28/25 05:38
Potassium 4.0 mmol/L (3.5-5.1) 02/28/25 05:38
BUN 22 mg/dl (9-20) H 02/28/25 05:38
Glucose 105 mg/dl (70-99) H 02/28/25 05:38
Calcium 9.2 mg/dl (8.4-10.2) 02/28/25 05:38
Medications
-
Medications:
Generic Name Dose Route Start Last Admin
Trade Name Freq PRN Reason Stop Dose Admin
Acetaminophen 650 mg 02/28/25 01:49
Acetaminophen 325 Mg Tablet PO 03/28/25 01:48
Q4HPRN PRN
Mild Pain / Temp > 101
Amlodipine Besylate 5 mg 02/28/25 08:00 02/28/25 07:38
Amlodipine 5 Mg Tablet PO 03/28/25 07:59 5 mg
DAILY SIENA Administration
Apixaban 5 mg 02/28/25 08:00 02/28/25 07:38
Apixaban (Eliquis) 5 Mg Tablet PO 03/28/25 07:59 5 mg
BID SIENA Administration
Aspirin 81 mg 03/01/25 08:00
Aspirin 81 Mg Chewable Tablet PO 03/29/25 07:59
DAILY SIENA
Atorvastatin Calcium 80 mg 02/28/25 08:00 02/28/25 07:38
Atorvastatin (Lipitor) 80 Mg Tablet PO 03/28/25 07:59 80 mg
DAILY SIENA Administration
Candesartan Cilexetil 32 mg 02/28/25 17:00 02/28/25 17:36
Candesartan 16 Mg Tablet PO 03/28/25 16:59 32 mg
DAILY SIENA Administration
Dextrose 12.5 grams 02/28/25 01:49
Dextrose 50% (0.5 Grams/Ml) 50 Ml Syringe IV 03/28/25 01:48
[id number] PRN
hypoglycemia
Protocol
Dofetilide 500 mcg 02/28/25 08:00 02/28/25 11:51
Dofetilide 500 Mcg Capsule PO 03/28/25 07:59 500 mcg
Q12 SIENA Administration
Enalaprilat 1.25 mg 02/28/25 10:37 02/28/25 16:26
Enalaprilat 1.25 Mg/Ml Vial IV 03/28/25 10:36 1.25 mg
Q6HPRN PRN Administration
SBP >170
Glucagon 1 mg 02/28/25 01:49
Glucagon 1 Mg Vial IM 03/28/25 01:48
PRN PRN
hypoglycemia
Protocol
Insulin Aspart 0 units 02/28/25 07:30 02/28/25 17:30
Insulin Aspart Low Resistance 300 Units/3 Ml Pen.Injctr SC 03/28/25 07:29 Not Given
AC SIENA
Protocol
Metoprolol Succinate 25 mg 02/28/25 08:00 02/28/25 07:38
Metoprolol 25 Mg Extended Release Tablet PO 03/28/25 07:59 25 mg
DAILY SIENA Administration
Sodium Chloride 0 flush 02/28/25 02:00
Sodium Chloride 0.9% (Flush) Syringe IV 03/28/25 01:59
PER PROTOCOL SIENA
Terazosin HCl 2 mg 02/28/25 18:00 02/28/25 17:39
Terazosin 1 Mg Capsule PO 03/28/25 17:59 2 mg
QPM SIENA Administration
Home Medications
-
Home Medications
apixaban 5 mg tablet (Eliquis) 5 mg PO BID #60 tabs 12/27/24
atorvastatin 80 mg tablet 80 mg PO QPM High Cholesterol 01/30/25
cholecalciferol (vitamin D3) 25 mcg (1,000 unit) tablet (Vitamin D3) 25 mcg PO DAILY Supplement 01/30/25
metformin 500 mg tablet 500 mg PO DAILY Diabetes 01/30/25
terazosin 2 mg capsule 2 mg PO QPM Urinary Issue 01/30/25
benzonatate 100 mg capsule 200 mg (2 x 100 mg) PO TIDPRN PRN Cough #20 caps 02/01/25
therapeutic multivitamin 1 tab PO DAILY ##0 02/12/25
dofetilide 500 mcg capsule 500 mcg PO Q12 Arrhythmia #60 caps 02/14/25
metoprolol succinate 25 mg tablet,extended release 24 hr 25 mg PO DAILY #30 tabs 02/14/25
hydralazine 25 mg tablet 25 mg PO BID 02/27/25
ascorbic acid (vitamin C) 500 mg tablet (Vitamin C) 500 mg PO DAILY 02/28/25
[2025-02-28 17:29] LABS: Glucose - Point of Care 95 mg/dl (70-99)
[2025-02-28] MEDS: ATACAND 32 MG PO (17:36)
[2025-02-28] MEDS: HYTRIN 2 MG PO (17:39)
[2025-03-01 03:47] VITALS: BP 169/58
[2025-03-01 06:25] LABS: % Basophils 0.5 % (0-2); % Eosinophils 7.2 % (0-6); % Immature Granulocytes 0.3 % (0-0.5); % Lymphocytes 23.9 % (20.5-51.1); % Monocytes 10.4 % (1.7-9.3); % Neutrophils 57.7 % (42.2-75.2); Absolute Eosinophils 0.4 10^3/uL (0-0.7); Absolute Lymphocytes 1.4 10^3/uL (1.2-3.4); Absolute Monocytes 0.6 10^3/uL (0.1-0.6); Absolute Neutrophils 3.4 10^3/uL (1.4-6.5); Hematocrit 37.7 % (39.0-52.0); Hemoglobin 13.3 g/dL (13.0-18.0); Mean Corp Hgb Conc. 35.3 g/dL (33.0-37.0); Mean Corpuscular Hgb 33.2 pg (27.0-31.0); Mean Platelet Volume 9.5 fL (7.4-10.4); Nucleated Red Blood Cells % 0 % (-); Platelet Count 177 10^3/uL (130-400); Red Blood Cell Count 4.01 10^6/uL (4.70-6.10); Red Cell Dist. Width 12.8 % (11.5-14.5); White Blood Cell Count 5.9 10^3/uL (4.8-10.8)
[2025-03-01 06:26] LABS: Blood Urea Nitrogen 23 mg/dl (9-20); Calcium 9.4 mg/dl (8.4-10.2); Carbon Dioxide 27 mmol/L (22-30); Chloride 104 mmol/L (98-107); Estimated Creatinine Clearance 61 ml/min; Glucose 100 mg/dl (70-99); Potassium 4.2 mmol/L (3.5-5.1); Sodium 139 mmol/L (135-145); eGFR > 60.00
[2025-03-01 06:57] LABS: TSH Reflex To Free T4 3.06 uIU/ml (0.47-4.68)
[2025-03-01 07:16] LABS: Vitamin B12 353 pg/ml (239-931)
[2025-03-01 07:37] VITALS: BP 205/78
[2025-03-01 07:50] VITALS: BP 169/68
[2025-03-01 07:58] LABS: Erythrocyte Sed Rate 7 mm/hour (0-20)
[2025-03-01] MEDS: ELIQUIS 5 MG PO ×2 (08:07→21:03)
[2025-03-01] MEDS: LIPITOR 80 MG PO (08:07)
[2025-03-01] MEDS: TIKOSYN 500 MCG PO ×2 (08:07→21:25)
[2025-03-01] MEDS: ATACAND 32 MG PO (08:07)
[2025-03-01] MEDS: NORVASC 5 MG PO ×2 (08:08→21:03)
[2025-03-01] MEDS: LOW STRENGTH ASPIRIN 81 MG PO (08:08)
[2025-03-01] MEDS: TYLENOL 650 MG PO (08:15)
[2025-03-01 09:23] LABS: Glucose - Point of Care 104 mg/dl (70-99)
[2025-03-01] MEDS: NOVOLOG FLEXPEN-LOW RESISTANCE SC ×2 (09:24→16:48)
--- NOTE | 2025-03-01 11:09 | W.PN.NEURO.1 ---
Today's Communication / Plan
-
.
Subjective/Objective
Subjective Data
Date of Service: March 01, 2025
Neurology follow-up note.
Mr. Kirk endorses mild occipital headache. No reports of change in vision strength. No recurrent episodes of confusion.
Brain MRI showed no acute infarcts.
Vitamin B12�353, normal TSH, ESR,
PMH: A-Fib/A Flutter, PAD, CAD, , HTN, DLP, DM, BPH, SARS Cov 2 (01/30/2025), vitamin D deficiency
PSH: R CEA, PTCI, Bilateral cataract surgery
SH: , retired banker, ambulates with a walker, drives, non-smoker, no history excess alcohol
FH: Not contributory to current presentation
All:NKDA
ROS: Constitutional: Negative. Negative for chills, fever and unexpected weight change.
HENT: Negative for ear pain, hearing loss, tinnitus and trouble swallowing.
Eyes: Negative. Negative for photophobia, pain and visual disturbance.
Respiratory: Negative for cough, choking and shortness of breath.
Cardiovascular: Negative for chest pain, palpitations and leg swelling.
Gastrointestinal: Negative for abdominal pain and vomiting.
Endocrine: Negative. Negative for cold intolerance.
Genitourinary: Negative for dysuria, flank pain and urgency.
Musculoskeletal: Negative for back pain, gait problem, neck pain and neck stiffness.
Skin: Negative for rash.
Allergic/Immunologic: Negative. Negative for immunocompromised state.
Neurological: Positive for transient confusion, positive for chronic hand tremor
General: Well developed. In no acute distress.
Cardio: Regular rate and rhythm without murmur. Extremities are without cyanosis or edema.
Neuro:
Mental Status: Alert, oriented to person, place, month, year. Date was incorrect. Preserved attention and comprehension. Follows simple requests consistently. No aphasia or hemineglect.
Cranial Nerves: Pupils are equally round, surgical. EOMs full. Visual desir full to confrontation. No ptosis. No nystagmus. V1-V3 intact to light touch and pinprick bilaterally, symmetric. Face symmetric. Normal hearing AU. The palate
elevated well. SCMs and traps 5/5. Tongue midline. No dysarthria.
Motor: Normal bulk and tone. No pronator or arm drift. Strength 5/5 throughout. No clonus.
Reflexes: 0+ throughout the upper extremities and knees. Plantar responses flexor bilaterally.
Sensory: Preserved vibration at the ankles
Coordination: Bilateral action right greater than left hand tremor.
Gait: deferred
Assessment and Plan:
I. Mild encephalopathy (vascular, metabolic), improved.
II. Action hand tremor, nondisabling
III. A-Fib/A Flutter
IV. History of R CEA
-Continue Telemetry monitoring
-Continue Eliquis for secondary stroke prophylaxis
- Please follow-up CRP, urine tox
-Outpatient neuropsychological evaluation
-Outpatient neurology follow-up
-Consider starting propranolol, Neurontin or primidone as outpatient if hand tremor becomes disabling
-DVT prophylaxis.
- Please r recall neurology services any questions or concerns.
I personally reviewed all radiology and labs along with past medical records pertinent to current medical problems. Total time spent in patient care is 35 minutes.
Thank you for allowing us to participate in the care of this patient. Please do not hesitate to contact us with any questions or concerns
Objective Data
Vital Signs
Temp Pulse Resp BP Pulse Ox
36.9 C 67 14 205/78 96
03/01/25 07:37 03/01/25 08:07 03/01/25 07:37 03/01/25 08:07 03/01/25 07:37
Lab Results
03/01/25 05:25
03/01/25 05:25
Sodium 139 mmol/L (135-145) 03/01/25 05:25
Potassium 4.2 mmol/L (3.5-5.1) 03/01/25 05:25
BUN 23 mg/dl (9-20) H 03/01/25 05:25
Glucose 100 mg/dl (70-99) H 03/01/25 05:25
Calcium 9.4 mg/dl (8.4-10.2) 03/01/25 05:25
Vitamin B12 353 pg/ml (431-687) 03/01/25 05:25
Patient Allergies
No Known Allergies Allergy (Verified 02/27/25 21:42)
Vital Signs and Labs
-
Vital Signs and Labs:
Vital Signs
Temp Pulse Resp BP Pulse Ox
36.9 C 67 14 205/78 96
03/01/25 07:37 03/01/25 08:07 03/01/25 07:37 03/01/25 08:07 03/01/25 07:37
Lab Results
03/01/25 05:25
03/01/25 05:25
Sodium 139 mmol/L (135-145) 03/01/25 05:25
Potassium 4.2 mmol/L (3.5-5.1) 03/01/25 05:25
BUN 23 mg/dl (9-20) H 03/01/25 05:25
Glucose 100 mg/dl (70-99) H 03/01/25 05:25
Calcium 9.4 mg/dl (8.4-10.2) 03/01/25 05:25
Vitamin B12 353 pg/ml (964-941) 03/01/25 05:25
Medications
-
Medications:
Generic Name Dose Route Start Last Admin
Trade Name Freq PRN Reason Stop Dose Admin
Acetaminophen 650 mg 02/28/25 01:49 03/01/25 08:15
Acetaminophen 325 Mg Tablet PO 03/28/25 01:48 650 mg
Q4HPRN PRN Administration
Mild Pain / Temp > 101
Amlodipine Besylate 5 mg 03/01/25 20:00
Amlodipine 5 Mg Tablet PO 03/29/25 19:59
BID SIENA
Apixaban 5 mg 02/28/25 08:00 03/01/25 08:07
Apixaban (Eliquis) 5 Mg Tablet PO 03/28/25 07:59 5 mg
BID ISENA Administration
Atorvastatin Calcium 80 mg 02/28/25 08:00 03/01/25 08:07
Atorvastatin (Lipitor) 80 Mg Tablet PO 03/28/25 07:59 80 mg
DAILY SIENA Administration
Candesartan Cilexetil 32 mg 02/28/25 17:00 03/01/25 08:07
Candesartan 16 Mg Tablet PO 03/28/25 16:59 32 mg
DAILY SIENA Administration
Dextrose 12.5 grams 02/28/25 01:49
Dextrose 50% (0.5 Grams/Ml) 50 Ml Syringe IV 03/28/25 01:48
[id number] PRN
hypoglycemia
Protocol
Dofetilide 500 mcg 02/28/25 08:00 03/01/25 08:07
Dofetilide 500 Mcg Capsule PO 03/28/25 07:59 500 mcg
Q12 SIENA Administration
Enalaprilat 1.25 mg 02/28/25 10:37 02/28/25 16:26
Enalaprilat 1.25 Mg/Ml Vial IV 03/28/25 10:36 1.25 mg
Q6HPRN PRN Administration
SBP >170
Glucagon 1 mg 02/28/25 01:49
Glucagon 1 Mg Vial IM 03/28/25 01:48
PRN PRN
hypoglycemia
Protocol
Insulin Aspart 0 units 02/28/25 07:30 03/01/25 09:24
Insulin Aspart Low Resistance 300 Units/3 Ml Pen.Injctr SC 03/28/25 07:29 Not Given
AC SIENA
Protocol
Metoprolol Succinate 25 mg 02/28/25 08:00 02/28/25 07:38
Metoprolol 25 Mg Extended Release Tablet PO 03/28/25 07:59 25 mg
DAILY SIENA Administration
Sodium Chloride 0 flush 02/28/25 02:00
Sodium Chloride 0.9% (Flush) Syringe IV 03/28/25 01:59
PER PROTOCOL SIENA
Terazosin HCl 5 mg 03/01/25 22:00
Terazosin 5 Mg Capsule PO 03/29/25 21:59
HS SIENA
Home Medications
-
Home Medications
apixaban 5 mg tablet (Eliquis) 5 mg PO BID #60 tabs 12/27/24
atorvastatin 80 mg tablet 80 mg PO QPM High Cholesterol 01/30/25
cholecalciferol (vitamin D3) 25 mcg (1,000 unit) tablet (Vitamin D3) 25 mcg PO DAILY Supplement 01/30/25
metformin 500 mg tablet 500 mg PO DAILY Diabetes 01/30/25
terazosin 2 mg capsule 2 mg PO QPM Urinary Issue 01/30/25
benzonatate 100 mg capsule 200 mg (2 x 100 mg) PO TIDPRN PRN Cough #20 caps 02/01/25
therapeutic multivitamin 1 tab PO DAILY ##0 02/12/25
dofetilide 500 mcg capsule 500 mcg PO Q12 Arrhythmia #60 caps 02/14/25
metoprolol succinate 25 mg tablet,extended release 24 hr 25 mg PO DAILY #30 tabs 02/14/25
hydralazine 25 mg tablet 25 mg PO BID 02/27/25
ascorbic acid (vitamin C) 500 mg tablet (Vitamin C) 500 mg PO DAILY 02/28/25
[2025-03-01 11:15] VITALS: BP 138/57
--- NOTE | 2025-03-01 11:24 | W.PN.CARDCBS ---
Addendum entered and electronically signed by Juno Miranda MD 03/01/25 17:44:
73-year-old man admitted with headache and confusion on February 27. Was in atrial fibrillation with rapid ventricular response at the time of admission. Recently started on dofetilide for control of atrial fibrillation, amlodipine was discontinued
related to potential dofetilide interaction, blood pressure remained high despite candesartan and metoprolol, hydralazine added, confusion started after first dose hydralazine.
PMH: Hypertension, PAF, recent start to dofetilide, history of syncope, 7-second conversion pause on dofetilide, mild to moderate aortic stenosis, CAD with rotational atherectomy 1992, drug-eluting stent RCA and posterolateral in 2008, right CEA
November 2012, hypertension, diabetes, hyperlipidemia, PAD
Current meds: Apixaban 5 mg twice daily, atorvastatin 80 mg a day, dofetilide 500 mg every 12, aspirin 81 mg daily, candesartan 32 mg daily
205/78, 169/68, pulse 67, respiratory 14, Head neck exam unremarkable, lungs are clear, regular rate and rhythm, no obvious murmurs,
White count 5.9, hemoglobin 13.3, BUN and creatinine are 23 and 1.0, potassium is 4.2
MRI of brain today without acute abnormality, mild to moderate chronic small vessel disease, possible prior right frontal microhemorrhage,
EKG on admission atrial flutter with 2 1 conduction, subsequent normal sinus rhythm with PVCs, QTc okay
CTA of abdomen and pelvis 03/01/2025 no abdominal aortic or iliac aneurysm. Moderate to severe atherosclerosis. Focal near complete occlusion of distal bilateral common femoral arteries, celiac and superior mesenteric, 50% stenosis at origin of
left renal artery is at origin of right artery.
Impression:
Hypertensive urgency/emergency as suspected cause of headache and confusion
History of hypertension
Bilateral renal artery stenosis By CTA of abdominal aorta 03/01/2025
Peripheral arterial disease with severe narrowing of aorta at bifurcation and near occlusion of common iliacs
Paroxysmal atrial flutter, recent start to dofetilide
Mild to moderate aortic stenosis
CAD with rotational arthrectomy of the LAD in 1992 and a Xience stent to the RCA posterolateral 2008
History of right CEA
Hypertension
Diabetes
Hyperlipidemia
Plan:
He remains intermittently very hypertensive. We will increase amlodipine to twice daily, and increase Terazosin to 5 mg daily. We could consider the addition of aldosterone as well for his blood pressure. For now we will hold off. Given his
hypertension, he may be best served with a single anticoagulant, will stop aspirin.
Given that there is an interaction between dofetilide and amlodipine, we will monitoring QT interval. We may need to decrease dofetilide to 250 mg twice daily.
.
Long-term management of atrial fibrillation may be best with EP consultation and possible pulmonary vein isolation. We can set up EP consultation at discharge.
.
He now has newly discovered renal artery stenosis which could be contributing to hypertension. His abdomen and pelvic CTA of the aorta confirms his known peripheral vascular disease which may be more severe than we had anticipated. Outpatient
vascular surgery consultation is planned.
He is bradycardic, we will stop metoprolol.
We will continue to follow.
Original Note:
Today's Communication / Plan
-
Increase amlodipine to 5 mg twice a day
Increase terazosin to 5 mg nightly
Stop aspirin
Check CTA of abdomen given bruits and difficult to control hypertension
Discontinue beta-mario secondary to bradycardia
Continue Tikosyn and Eliquis
Check EKG in a.m.
Impression / Plan
-
PCP: Dr. Cornelius
Cardiology: Dr. Juno Miranda
Impression:
Admitted with confusion, CUEVAS and HTN 02/27/25
HTN emergency
CUEVAS
Confusion PM
h/o HTN
Recent admission for Tikosyn load 02/12/25 until 02/15/25
Recent admission for syncope 01/29/2025 until 02/01/25
h/o 7 second conversion pause, spontaneously converted with Tikosyn load 02/13/25
Persistent Afib
Diagnosed at time of colonoscopy 12/27/2024
Paroxysmal typical atrial flutter
Chronic Eliquis OAC
Mild to moderate peak/mean 34/18 mmHg and DEBBIE 1.4 cm sq
CAD
s/p rotational atherectomy LAD 1992
s/p Xience AN to RCA and PLB 2008
s/p right CEA 11/2012
HTN
DM 2
Hyperlipidemia
PAD with claudication
Echo 01/15/2025: EF 55 to 60%, mild MR, mild to moderate peak/mean 34/18 mmHg and DEBBIE 1.4 cm sq, mild aortic regurgitation, mild TR
Plan:
- Admitted with confusion, CUEVAS and HTN 02/27/25
-Presented in atrial fibrillation with rapid ventricular response and spontaneously converted to sinus rhythm. Per review of telemetry patient remains in sinus rhythm/bradycardia with PVCs. Continue Tikosyn 500 mcg BID. EKG 02/27/2025 with stable
QTc at 442 ms. Repeat EKG in a.m.
- Beta-mario has been discontinued secondary to bradycardia after initiation of Tikosyn
-Continue chronic anticoagulation with Eliquis 5 mg twice a day, hemoglobin stable 13.3
- Patient was very hypertensive on admission. Continues to have difficult to control hypertension during recent admissions and as outpatient. Multiple medication changes made over the last 4 weeks. Now off beta-mario secondary to bradycardia.
Hydralazine discontinued secondary to confusion and headache after initiation of medication. Cannot add HCTZ due to interaction with Tikosyn. Patient also reports previous adverse reaction with chlorthalidone back in 2019.
-Continue candesartan 32 mg daily.
- Amlodipine started this admission. Will increase dose to 5 mg twice a day.
- Increase terazosin to 5 mg at bedtime (previously was on 2 mg)
-Patient noted to have abdominal bruits on examination. Will check CTA of abdomen to rule out renal artery stenosis given difficult to control blood pressure and bruits
-Cont Eliquis 5 mg BID (age 79, Cre 0.9). Stop aspirin given Eliquis
-Appreciate neurology input. MRI of brain was negative for stroke
Plan discussed with patient, patient's family at bedside and hospitalist.
[facility] 02/28/2025:
Patient came to [facility] ER last night with CUEVAS and cardiology has been consulted for recurrence of Afib. Patient was admitted to 01/29/25 until 02/01/25 with syncope in the setting of COVID and at that time his previous doses of amlodipine 5 mg daily
and candesartan 32 mg daily were stopped. Patient was seen by Dr. Miranda in the office on 02/08/2025 and BP was 140/70 on Toprol XL 50 mg BID. Patient was also noted to be in A-fib with RVR and was recommended elective admission the following week
for Tikosyn loading. Patient was then admitted for Tikosyn loading 02/12/25 until 02/15/2025 and during that admission patient had a 7-second conversion pause and was bradycardic so Toprol XL was reduced to 25 mg daily. Also during that admission
losartan 25 mg daily was added for increasing BP. Patient was discharged to home and call the office on 02/21/2025 to report increased BP at which time Dr. Miranda instructed the patient to stop losartan and resume his previous dose of candesartan,
patient was to monitor BP and call our office back. Patient called the office back on 02/25/2025 to report that he was still hypertensive and hydralazine 25 mg BID was added to his regimen. Patient reports that after taking the first dose of
hydralazine on the night of 02/26/25 he was disoriented and his describes that he was unable to use the glucometer which he uses on a daily basis and was unable to use his Kartia monitor which he also uses on a daily basis. No focal or
lateralizing weakness. The next day the patient woke up and after eating breakfast he was able to take another dose of hydralazine and felt that shortly after he started with a headache that lasted all day long. In the evening the patient checked
his rhythm using his Kartia monitor and he was in A-fib with RVR and given the ongoing headache, the reaction to hydralazine the night before and the A-fib seen on the monitor the patient's brought him to the ER. Eventually patient
spontaneously converted to SR without any clear symptomatic difference.
Progress Note - Construction Equipment Mechanic
Subjective
Date of Service: March 01, 2025
Patient seen and examined. Patient reports feeling well. Confusion improved.
Objective
Labs:
03/01/25 05:25
03/01/25 05:25
Labs
Hgb 13.3 g/dL (13.0-18.0) 03/01/25 05:25
Hct 37.7 % (39.0-52.0) L 03/01/25 05:25
Plt Count 177 10^3/uL (130-400) 03/01/25 05:25
Sodium 139 mmol/L (135-145) 03/01/25 05:25
Potassium 4.2 mmol/L (3.5-5.1) 03/01/25 05:25
BUN 23 mg/dl (9-20) H 03/01/25 05:25
Creatinine 1.0 mg/dL (0.7-1.3) 03/01/25 05:25
Glucose 100 mg/dl (70-99) H 03/01/25 05:25
Vital Signs and I&O:
Vital Signs
Temp Pulse Resp BP Pulse Ox
98.9 F 73 14 138/57 93
03/01/25 11:15 03/01/25 11:15 03/01/25 11:15 03/01/25 11:15 03/01/25 11:15
Vital Signs
Temp Pulse Resp BP Pulse Ox
98.9 F 73 14 138/57 93
03/01/25 11:15 03/01/25 11:15 03/01/25 11:15 03/01/25 11:15 03/01/25 11:15
Intake & Output
0402/28/25 03/01/25 03/02/25
06:59 06:59 06:59 06:59
Intake Total 240 / 240 480 / 480
Balance 240 / 240 480 / 480
Physical Exam
Physical Exam
GEN: No distress, awake, Ox3
HEENT: supple, anicteric, mmm
LUNGS: CTA, no wheezes/rales
CV: Reg, S1/S2, 1/6 syst murmur, no rub or gallop
ABD: soft, BS+, NT/ND, positive bruit noted
EXT: No edema, clubbing or cyanosis
NEURO: Gross non-focal
SKIN: No rash, warm, dry, pink
[2025-03-01 11:52] LABS: Glucose - Point of Care 184 mg/dl (70-99)
[2025-03-01] MEDS: NOVOLOG FLEXPEN-LOW RESISTANCE 1 UNITS SC (12:44)
--- NOTE | 2025-03-01 14:12 | W.PN.HOSP.TC ---
Today's Communication/Plan
-
Assessment / Plan
Assessment / Plan
General: No Apparent Distress, Comfortable and Conversant
HEENT: NormoCephalic, Moist mucous membranes, Atraumatic
Respiratory: Clear and Non Labored Respirations
Cardiac: S1/S2 and Regular Rhythm; heart rate 70, 2/6 systolic murmur left sternal border
GI: Soft, Non Tender, Non Distended and Normal Bowel Sounds
Musculoskeletal: No Edema, no deformity
Skin: Warm and dry
: NO Patterson
Neuro: Awake, Alert, Nonfocal/grossly intact
Psych: Calm and cooperative
Mr. Kirk is a 79-year-old male with a medical history of CAD (PCI with stents), carotid artery disease (status post right carotid endarterectomy), paroxysmal A-fib (recently started on dofetilide, on Eliquis), hypertension, and
caj-zjuhulz-qmlrmwqrm diabetes mellitus who presented with headache, confusion, and recurrent A-fib. He had recently been hospitalized for new onset A-fib, was loaded with Tikosyn (02/12-02/16), and converted to normal sinus rhythm. He has since had
uncontrolled blood pressure. He was started on hydralazine and after his first dose his noted that he became very confused. He later developed a headache and when checking his rate and rhythm at home they noticed that he had reverted back to
A-fib. He then sought medical treatment in the emergency department. He spontaneously converted back to normal sinus rhythm in the ED and his headache resolved. He was admitted for monitoring. However he has since developed uncontrolled
hypertension and his headache has recurred.
Hypertensive emergency:
- Initial blood pressure was 226/70, with intermittent headaches that seem to resolve with better blood pressure control
- MRI brain obtained which shows no acute infarcts, appreciate neurology recommendations
- Increasing amlodipine to 5 mg twice daily, increase terazosin to 5 mg nightly
- IV enalaprilat as needed for SBP greater than 170
- Continue telemetry monitoring
- Appreciate cardiology recommendations
- Checking CT angiography of abdomen and pelvis considering bruits and difficult to control hypertension
Paroxysmal A-fib:
- Recently loaded with Tikosyn 02/12- and converted to normal sinus rhythm
- Reverted to A-fib prior to admission but is now back in normal sinus rhythm
- Discontinued beta-mario due to bradycardia
- Continue Tikosyn
- Anticoagulation with Eliquis
- Further recommendations per cardiology
Action tremor of hand:
- Nondisabling
- Evaluated by neurology who recommends considering starting propranolol Neurontin or primidone as outpatient if tremor becomes disabling
- Neurology also recommending outpatient neuropsychologic evaluation and outpatient neurology follow-up
CAD:
- Chronic, stable
- Continue high intensity statin, stop aspirin
Ehq-zrygzsg-rjcnujqhj diabetes mellitus:
- Currently stable
- Uses metformin at home, will cover with sliding scale insulin while inpatient
DVT prophylaxis: On Eliquis for A-fib
CODE STATUS: Full code
Anticipated Discharge: 24 - 48 hours
Subjective/Interval History
-
Date of Service: March 01, 2025
The patient was seen and examined at bedside this morning. Woke up with a headache and high blood pressure again today. Headache has resolved now that his pressure is better controlled.
Objective Data
-
Labs:
Laboratory Results
03/01/25
05:25
WBC 5.9
Hgb 13.3
Hct 37.7 L
Plt Count 177
Sodium 139
Potassium 4.2
Chloride 104
Carbon Dioxide 27
BUN 23 H
Creatinine 1.0
Glucose 100 H
Calcium 9.4
Vital Signs:
Vital Signs
Temp Pulse Resp BP Pulse Ox
98.9 F 73 14 138/57 93
03/01/25 11:15 03/01/25 11:15 03/01/25 11:15 03/01/25 11:15 03/01/25 11:15
I&O
02/28/25 03/01/25 03/02/25
06:59 06:59 06:59
Intake Total 240 / 240 480 / 480
Balance 240 / 240 480 / 480
Review of Systems
-
History Source: Patient
All other systems: Reviewed and negative
Physical Exam
-
General: No Apparent Distress
--- NOTE | 2025-03-01 15:03 | W.PN.UPDATE ---
Update Note
Progress Note Update
Spoke with vascular team after they reviewed the results of CT angiography of abdomen and pelvis. They acknowledge bilateral renal artery stenosis and severe bilateral occlusion of the distal common femoral arteries. They advise outpatient
follow-up for evaluation and possible intervention if blood pressure is able to be reasonably well-controlled. Otherwise vascular team will evaluate him while inpatient. Blood pressure is currently well-controlled. Vascular team will notify us of
outpatient appointment date this week.
[2025-03-01 15:27] VITALS: BP 130/51
--- NOTE | 2025-03-01 16:17 | W.PN.UPDATE ---
Update Note
Progress Note Update
Patient has an appointment set up with vascular surgery on 03/06/2025 at 3 PM in the vascular surgery office, [phone] [facility] [address] [facility]
[2025-03-01 16:44] LABS: Glucose - Point of Care 129 mg/dl (70-99)
--- NOTE | 2025-03-01 18:40 | CM ---
Spoke with in room .
She said that pt did not need VN at dc.
IMM reviewed signed on chart.
PLAN Home no needs
[2025-03-01 19:58] VITALS: BP 183/62
[2025-03-01] MEDS: HYTRIN 5 MG PO (21:02)
[2025-03-01 21:09] LABS: Glucose - Point of Care 109 mg/dl (70-99)
--- NOTE | 2025-03-01 22:04 | PTCARENOTE ---
Patient's HR- 48-51 SR, BP- 173/60 ( had amlodipine/ Hytrin). Dr Patino made aware of HR via TT. EKG done as per order. No new orders at this time. Administered Tikosyn as scheduled.
[2025-03-01] MEDS: LOPRESSOR 5 MG IV (23:35)
[2025-03-02] VITALS (7 sets, daily range): BP systolic 124–182; BP diastolic 55–82
--- NOTE | 2025-03-02 00:32 | PTCARENOTE ---
Addendum entered by Genoveva Umana RN 03/02/25 02:52:
Patient rhythm converted to SR
Addendum entered by Genoveva Umana RN 03/02/25 01:24:
JAYNE Chin made aware of mag-1.8, runs of V-tach on tele.
Original Note:
Patient's HR in Afib 130- 140s. Asymptomatic now . bp- 153/82. JAYNE Chin made aware. Order for Lopressor 5mg IV stat.
[2025-03-02 01:12] LABS: Blood Urea Nitrogen 27 mg/dl (9-20); Calcium 9.5 mg/dl (8.4-10.2); Carbon Dioxide 27 mmol/L (22-30); Chloride 102 mmol/L (98-107); Estimated Creatinine Clearance 61 ml/min; Glucose 108 mg/dl (70-99); Magnesium 1.8 mg/dl (1.6-2.3); Potassium 4.1 mmol/L (3.5-5.1); Sodium 136 mmol/L (135-145); eGFR > 60.00
[2025-03-02] MEDS: MAGNESIUM SULFATE 102 GRAMS IV (01:37)
[2025-03-02 08:32] LABS: Glucose - Point of Care 121 mg/dl (70-99)
[2025-03-02] MEDS: NOVOLOG FLEXPEN-LOW RESISTANCE SC ×2 (08:49→17:20)
[2025-03-02] MEDS: ELIQUIS 5 MG PO ×2 (08:52→20:30)
[2025-03-02] MEDS: NORVASC 5 MG PO ×2 (08:53→20:31)
[2025-03-02] MEDS: LIPITOR 80 MG PO (08:53)
[2025-03-02] MEDS: TIKOSYN 500 MCG PO ×2 (08:53→20:31)
[2025-03-02] MEDS: ATACAND 32 MG PO (08:53)
[2025-03-02] MEDS: ALDACTONE 25 MG PO (08:55)
--- NOTE | 2025-03-02 11:27 | W.PN.CARDCBS ---
Today's Communication / Plan
-
Add spironolactone, monitor BP
Impression / Plan
-
PCP: Dr. Cornelius
Cardiology: Dr. Juno Miranda
Impression:
Admitted with confusion, CUEVAS and HTN 02/27/25
HTN emergency
CUEVAS
Confusion PM
h/o HTN
Recent admission for Tikosyn load 02/12/25 until 02/15/25
Recent admission for syncope 01/29/2025 until 02/01/25
h/o 7 second conversion pause, spontaneously converted with Tikosyn load 02/13/25
Persistent Afib
Diagnosed at time of colonoscopy 12/27/2024
Paroxysmal typical atrial flutter
Chronic Eliquis OAC
Mild to moderate peak/mean 34/18 mmHg and DEBBIE 1.4 cm sq
CAD
s/p rotational atherectomy LAD 1992
s/p Xience AN to RCA and PLB 2008
s/p right CEA 11/2012
HTN
DM 2
Hyperlipidemia
PAD with claudication
Echo 01/15/2025: EF 55 to 60%, mild MR, mild to moderate peak/mean 34/18 mmHg and DEBBIE 1.4 cm sq, mild aortic regurgitation, mild TR
Plan:
- Admitted with confusion, CUEVAS and HTN 02/27/25 found to be in atrial fibrillation with rapid ventricular response and spontaneously converted to sinus rhythm. Per review of telemetry patient remains in sinus rhythm. Continue Tikosyn 500 mcg BID.
- Beta-mario dose decreased secondary to bradycardia
-Continue chronic anticoagulation with Eliquis 5 mg twice a day
-Patient was very hypertensive on admission. Continues to have difficult to control hypertension during recent admissions and as outpatient. Multiple medication changes made over the last 4 weeks.
-CTA of abdomen with moderate renal artery stenosis which may be contributing to hypertension
-Continue candesartan 32 mg daily
-Amlodipine started this admission, cont 5 mg twice a day
-Increased terazosin to 5 mg at bedtime (previously was on 2 mg)
-Add spironolactone
-Unable to uptitrated metoprolol secondary to bradycardia
-Hydralazine discontinued secondary to confusion and headache after initiation of medication
-Cannot add HCTZ due to interaction with Tikosyn. Patient also reports previous adverse reaction with chlorthalidone back in 2019.
-Appreciate neurology input. MRI of brain was negative for stroke
Plan discussed with patient, patient's family at bedside
[facility] 02/28/2025:
Patient came to [facility] ER last night with CUEVAS and cardiology has been consulted for recurrence of Afib. Patient was admitted to 01/29/25 until 02/01/25 with syncope in the setting of COVID and at that time his previous doses of amlodipine 5 mg daily
and candesartan 32 mg daily were stopped. Patient was seen by Dr. Miranda in the office on 02/08/2025 and BP was 140/70 on Toprol XL 50 mg BID. Patient was also noted to be in A-fib with RVR and was recommended elective admission the following week
for Tikosyn loading. Patient was then admitted for Tikosyn loading 02/12/25 until 02/15/2025 and during that admission patient had a 7-second conversion pause and was bradycardic so Toprol XL was reduced to 25 mg daily. Also during that admission
losartan 25 mg daily was added for increasing BP. Patient was discharged to home and call the office on 02/21/2025 to report increased BP at which time Dr. Miranda instructed the patient to stop losartan and resume his previous dose of candesartan,
patient was to monitor BP and call our office back. Patient called the office back on 02/25/2025 to report that he was still hypertensive and hydralazine 25 mg BID was added to his regimen. Patient reports that after taking the first dose of
hydralazine on the night of 02/26/25 he was disoriented and his describes that he was unable to use the glucometer which he uses on a daily basis and was unable to use his Kartia monitor which he also uses on a daily basis. No focal or
lateralizing weakness. The next day the patient woke up and after eating breakfast he was able to take another dose of hydralazine and felt that shortly after he started with a headache that lasted all day long. In the evening the patient checked
his rhythm using his [employer] monitor and he was in A-fib with RVR and given the ongoing headache, the reaction to hydralazine the night before and the A-fib seen on the monitor the patient's brought him to the ER. Eventually patient
spontaneously converted to SR without any clear symptomatic difference.
Progress Note - Ms Sql Developer
Subjective
Date of Service: March 02, 2025
No acute overnight events. Patient episode of atrial fibrillation with Richards in sinus rhythm today. He is concerned for elevated blood pressure. Confusion has resolved.
Objective
Labs:
03/01/25 05:25
03/02/25 00:05
Labs
Hgb 13.3 g/dL (13.0-18.0) 03/01/25 05:25
Hct 37.7 % (39.0-52.0) L 03/01/25 05:25
Plt Count 177 10^3/uL (130-400) 03/01/25 05:25
Sodium 136 mmol/L (135-145) 03/02/25 00:05
Potassium 4.1 mmol/L (3.5-5.1) 03/02/25 00:05
BUN 27 mg/dl (9-20) H 03/02/25 00:05
Creatinine 1.0 mg/dL (0.7-1.3) 03/02/25 00:05
Glucose 108 mg/dl (70-99) H 03/02/25 00:05
Vital Signs and I&O:
Vital Signs
Temp Pulse Resp BP Pulse Ox
98.2 F 72 16 182/72 95
03/02/25 08:31 03/02/25 08:31 03/02/25 08:31 03/02/25 08:53 03/02/25 08:31
Vital Signs
Temp Pulse Resp BP Pulse Ox
98.2 F 72 16 182/72 95
03/02/25 08:31 03/02/25 08:31 03/02/25 08:31 03/02/25 08:53 03/02/25 08:31
Intake & Output
02/28/25 03/01/25 03/02/25 03/03/25
06:59 06:59 06:59 06:59
Intake Total 240 / 240 480 / 480 720 / 720
Balance 240 / 240 480 / 480 720 / 720
Physical Exam
Physical Exam
Gen: NAD, AAOx3
HEENT: NC/AT, sclera anicteric
Neck: No JVD
CV: RRR, NL s1/s2
Lungs: No increased WOB on RA
Abd: S/ND
Ext: No LE edema
Skin: Warm, dry
Neuro: Non-focal
[2025-03-02 12:12] LABS: Glucose - Point of Care 243 mg/dl (70-99)
[2025-03-02] MEDS: NOVOLOG FLEXPEN-LOW RESISTANCE 2 UNITS SC (12:45)
--- NOTE | 2025-03-02 16:29 | W.PN.HOSP.TC ---
Addendum entered and electronically signed by Yimi Brewer DO 03/11/25 14:08:
Additional diagnosis
Encephalopathy due to hypertensive emergency at time of admission, resolved
Original Note:
Today's Communication/Plan
-
Assessment / Plan
Assessment / Plan
General: No Apparent Distress, Comfortable and Conversant
HEENT: NormoCephalic, Moist mucous membranes, Atraumatic
Respiratory: Clear and Non Labored Respirations
Cardiac: S1/S2 and Regular Rhythm; heart rate 70, 2/6 systolic murmur left sternal border
GI: Soft, Non Tender, Non Distended and Normal Bowel Sounds
Musculoskeletal: No Edema, no deformity
Skin: Warm and dry
: NO Patterson
Neuro: Awake, Alert, Nonfocal/grossly intact
Psych: Calm and cooperative
Mr. Kirk is a 79-year-old male with a medical history of CAD (PCI with stents), carotid artery disease (status post right carotid endarterectomy), paroxysmal A-fib (recently started on dofetilide, on Eliquis), hypertension, and
lbn-qkaeooh-ayqwwgsfw diabetes mellitus who presented with headache, confusion, and recurrent A-fib. He had recently been hospitalized for new onset A-fib, was loaded with Tikosyn (02/12-02/16), and converted to normal sinus rhythm. He has since had
uncontrolled blood pressure. He was started on hydralazine and after his first dose his noted that he became very confused. He later developed a headache and when checking his rate and rhythm at home they noticed that he had reverted back to
A-fib. He then sought medical treatment in the emergency department. He spontaneously converted back to normal sinus rhythm in the ED and his headache resolved. He was admitted for monitoring. However he has since developed uncontrolled
hypertension and his headache has recurred.
Hypertensive emergency:
- Initial blood pressure was 226/70, with intermittent headaches that seem to resolve with better blood pressure control
- MRI brain obtained which shows no acute infarcts, appreciate neurology recommendations
- CT angiography of abdomen and pelvis showed bilateral renal artery stenosis (50% on left, 75% on right) and focal near complete occlusion of the distal bilateral common femoral arteries
- Discussed CTA findings with vascular surgery, recommend outpatient follow-up this week if blood pressure able to be reasonably well-controlled otherwise will evaluate inpatient on Tuesday
- Increased amlodipine to 5 mg twice daily, increase terazosin to 5 mg nightly
- Added spironolactone 25 mg p.o. daily today 03/02/2025
- IV enalaprilat as needed for SBP greater than 170
- Continue telemetry monitoring
- Appreciate cardiology recommendations
Paroxysmal A-fib:
- Recently loaded with Tikosyn 02/12- and converted to normal sinus rhythm
- Reverted to A-fib prior to admission but now back in normal sinus rhythm
- Cardiology restarted metoprolol succinate at lower dose of 12.5 mg daily
- Continue Tikosyn
- Anticoagulation with Eliquis
- Further recommendations per cardiology
Action tremor of hand:
- Nondisabling
- Evaluated by neurology who recommends considering starting propranolol Neurontin or primidone as outpatient if tremor becomes disabling
- Neurology also recommending outpatient neuropsychologic evaluation and outpatient neurology follow-up
CAD:
- Chronic, stable
- Continue high intensity statin, stop aspirin
Vzk-ccynfaj-ibzejpsud diabetes mellitus:
- Will restart home metformin 500 mg daily, additional sliding scale as needed
DVT prophylaxis: On Eliquis for A-fib
CODE STATUS: Full code
Anticipated Discharge: 24 - 48 hours
Subjective/Interval History
-
Date of Service: March 02, 2025
Patient was seen and examined at bedside this morning. No headaches today but did have significant hypertension this morning. Aldactone added to antihypertensive regimen.
Objective Data
-
Vital Signs:
Vital Signs
Temp Pulse Resp BP Pulse Ox
98.1 F 65 16 154/55 95
03/02/25 11:10 03/02/25 11:10 03/02/25 11:10 03/02/25 11:10 03/02/25 11:10
I&O
03/01/25 03/02/25 03/03/25
06:59 06:59 06:59
Intake Total 480 / 480 720 / 720
Balance 480 / 480 720 / 720
Review of Systems
-
History Source: Patient
All other systems: Reviewed and negative
Physical Exam
-
General: No Apparent Distress
[2025-03-02 17:18] LABS: Glucose - Point of Care 126 mg/dl (70-99)
[2025-03-02] MEDS: HYTRIN 5 MG PO (20:32)
[2025-03-02 21:59] LABS: Glucose - Point of Care 125 mg/dl (70-99)
[2025-03-03] MEDS: LOPRESSOR 2.5 MG IV (00:12)
[2025-03-03 01:00] LABS: Blood Urea Nitrogen 26 mg/dl (9-20); Calcium 9.2 mg/dl (8.4-10.2); Carbon Dioxide 24 mmol/L (22-30); Chloride 106 mmol/L (98-107); Estimated Creatinine Clearance 61 ml/min; Glucose 119 mg/dl (70-99); Magnesium 2.1 mg/dl (1.6-2.3); Potassium 4.3 mmol/L (3.5-5.1); Sodium 139 mmol/L (135-145); eGFR > 60.00
[2025-03-03 06:15] VITALS: BMI 23.3
--- NOTE | 2025-03-03 06:26 | PTCARENOTE ---
Approx 2300 pt HR increased from 50's-60's to 120's with 12 beat run of VTACH. Pt aox3, comfortably laying in bed, with no complaints. BP 124/66 afebrile. [employer] aware. Labs drawn, IVP Lopressor given as per order. Pt had another 11 beat run of vtach
appox 1 hour later, hr still in the 120's -130's. appox 0115 pt had a 2.31 sec pause then converted ack to Sinus [place]olas[place] HR in 60's.
[2025-03-03 07:50] VITALS: BP 158/51
[2025-03-03 08:52] LABS: Glucose - Point of Care 114 mg/dl (70-99)
[2025-03-03] MEDS: NOVOLOG FLEXPEN-LOW RESISTANCE SC (08:53)
[2025-03-03] MEDS: ELIQUIS 5 MG PO (08:54)
[2025-03-03] MEDS: ALDACTONE 25 MG PO (08:55)
[2025-03-03] MEDS: GLUCOPHAGE 500 MG PO (08:55)
[2025-03-03] MEDS: LIPITOR 80 MG PO (08:55)
[2025-03-03] MEDS: TIKOSYN 500 MCG PO (08:56)
[2025-03-03] MEDS: NORVASC 5 MG PO (08:56)
[2025-03-03] MEDS: ATACAND 32 MG PO (08:56)
[2025-03-03 11:30] VITALS: BP 153/56
--- NOTE | 2025-03-03 12:19 | W.DCSUMMARY ---
Discharge Summary
Discharge Data
Date of Admission: 02/28/25
Date of Discharge: 03/03/25
-
Pending Results: No
Hospital Course
Mr. Kirk is a 79-year-old male with a medical history of CAD (PCI with stents), carotid artery disease (status post right carotid endarterectomy), paroxysmal A-fib (recently started on dofetilide, on Eliquis), hypertension, and
tsc-sukxvjh-ugnviwdkx diabetes mellitus who presented with headache, confusion, and recurrent A-fib. He had recently been hospitalized for new onset A-fib, was loaded with Tikosyn (02/12-02/16), and converted to normal sinus rhythm. He has since had
uncontrolled blood pressure. He was started on hydralazine and after his first dose his noted that he became very confused. He later developed a headache and when checking his rate and rhythm at home they noticed that he had reverted back to
A-fib. He then sought medical treatment in the emergency department. He spontaneously converted back to normal sinus rhythm in the ED and his headache resolved. He was found to have severely uncontrolled hypertension with headaches correlated
with his blood pressure spikes. He was admitted for further evaluation and management of hypertensive emergency.
He was given IV enalaprilat as needed for severe blood pressure spikes. His home amlodipine was increased to 5 mg twice daily and his terazosin was increased to 5 mg nightly. His beta-mario metoprolol succinate was initially discontinued due to
bradycardia but later restarted at a lower dose of 12.5 mg daily. His dofetilide was continued. Spironolactone and candesartan were added.
MRI brain was obtained which showed no acute infarcts. He was evaluated by neurology who felt he had no evidence of acute stroke. Neurologist did recommend outpatient follow-up for management of the action tremor in his hand if it becomes
disabling, at which point he could potentially be started on propranolol, Neurontin, or primidone. Neurologist also recommended outpatient neuropsychological evaluation and neurology follow-up.
Patient's blood pressure was initially difficult to control. He underwent CT angiography of his abdomen pelvis for evaluation of potential secondary causes of his hypertension. He was found to have bilateral renal artery stenosis and severe
bilateral occlusion of the distal common femoral arteries. These findings were discussed with the vascular surgery team who recommended close outpatient follow-up for further evaluation and management as long as his blood pressure was able to be
reasonably well-controlled. He has an appointment set up on 03/06/2025 at 3 PM in the vascular surgery office, [phone] in the [place].
His blood pressure was ultimately able to be reasonably well-controlled. He will be discharged home with cardiology and vascular surgery follow-up. He should continue to monitor his blood pressure and heart rate at home. He has been advised to
seek medical attention if his systolic blood pressure is over 180 or if he develops any symptoms associated with high blood pressure such as headache or dizziness. He should hold his home dose of metoprolol succinate if his heart rate is less than
50. He will also need to follow-up with his primary care physician and neurology.
General: No Apparent Distress, Comfortable and Conversant
HEENT: NormoCephalic, Moist mucous membranes, Atraumatic
Respiratory: Clear and Non Labored Respirations
Cardiac: S1/S2 and Regular Rhythm; heart rate 60, 2/6 systolic murmur left sternal border
GI: Soft, Non Tender, Non Distended and Normal Bowel Sounds
Musculoskeletal: No Edema, no deformity
Skin: Warm and dry
: NO Patterson
Neuro: Awake, Alert, Nonfocal/grossly intact
Psych: Calm and cooperative
Discharge Plan
-
Patient Disposition: Home (Routine Discharge)
Discharge Diagnosis/Procedures: Hypertensive emergency
Diet: Diabetic, Carb Controlled
Activity: No restrictions
Activity Restrictions/Additional Instructions:
Mr. Kirk is a 79-year-old male with a medical history of CAD (PCI with stents), carotid artery disease (status post right carotid endarterectomy), paroxysmal A-fib (recently started on dofetilide, on Eliquis), hypertension, and
cmu-yjchxnl-qmsxikvla diabetes mellitus who presented with headache, confusion, and recurrent A-fib. He had recently been hospitalized for new onset A-fib, was loaded with Tikosyn (02/12-02/16), and converted to normal sinus rhythm. He has since had
uncontrolled blood pressure. He was started on hydralazine and after his first dose his noted that he became very confused. He later developed a headache and when checking his rate and rhythm at home they noticed that he had reverted back to
A-fib. He then sought medical treatment in the emergency department. He spontaneously converted back to normal sinus rhythm in the ED and his headache resolved. He was found to have severely uncontrolled hypertension with headaches correlated
with his blood pressure spikes. He was admitted for further evaluation and management of hypertensive emergency.
He was given IV enalaprilat as needed for severe blood pressure spikes. His home amlodipine was increased to 5 mg twice daily and his terazosin was increased to 5 mg nightly. His beta-mario metoprolol succinate was initially discontinued due to
bradycardia but later restarted at a lower dose of 12.5 mg daily. His dofetilide was continued. Spironolactone and candesartan were added.
MRI brain was obtained which showed no acute infarcts. He was evaluated by neurology who felt he had no evidence of acute stroke. Neurologist did recommend outpatient follow-up for management of the action tremor in his hand if it becomes
disabling, at which point he could potentially be started on propranolol, Neurontin, or primidone. Neurologist also recommended outpatient neuropsychological evaluation and neurology follow-up.
Patient's blood pressure was initially difficult to control. He underwent CT angiography of his abdomen pelvis for evaluation of potential secondary causes of his hypertension. He was found to have bilateral renal artery stenosis and severe
bilateral occlusion of the distal common femoral arteries. These findings were discussed with the vascular surgery team who recommended close outpatient follow-up for further evaluation and management as long as his blood pressure was able to be
reasonably well-controlled. He has an appointment set up on 03/06/2025 at 3 PM in the vascular surgery office, [address] in the [place].
His blood pressure was ultimately able to be reasonably well-controlled. He will be discharged home with cardiology and vascular surgery follow-up. He should continue to monitor his blood pressure and heart rate at home. He has been advised to
seek medical attention if his systolic blood pressure is over 180 or if he develops any symptoms associated with high blood pressure such as headache or dizziness. He should hold his home dose of metoprolol succinate if his heart rate is less than
50. He will also need to follow-up with his primary care physician and neurology.
Referrals:
Alejandro Cornelius MD [Family Provider] -
Wilber Patterson III, MD [Active] - 03/06/25 3:00 pm
()
Jaymie Moss MD [Active] -
Diaz Faith MD [Active] -
Prescriptions:
New
terazosin 5 mg Capsule
5 mg PO HS 30 Days Qty: 30 0RF
amlodipine 5 mg Tablet
5 mg PO BID 30 Days Qty: 60 0RF
spironolactone 25 mg Tablet
25 mg PO DAILY 30 Days Qty: 30 0RF
candesartan 16 mg Tablet
32 mg PO DAILY 30 Days Qty: 60 0RF
metoprolol succinate 25 mg Tablet Extended Release 24 Hr
12.5 mg PO DAILY 30 Days Qty: 15 0RF
Continued
Eliquis 5 mg tablet
5 mg PO BID Qty: 60 0RF
metformin 500 mg Tablet
500 mg PO DAILY
atorvastatin 80 mg Tablet
80 mg PO QPM
cholecalciferol (vitamin D3) [Vitamin D3] 25 mcg (1,000 unit) Tablet
25 mcg PO DAILY
benzonatate 100 mg Capsule
200 mg PO TIDPRN PRN (Reason: Cough) Qty: 20 0RF
therapeutic multivitamin Tablet
1 tab PO DAILY Qty: 0
dofetilide 500 mcg Capsule
500 mcg PO Q12 Qty: 60 11RF
ascorbic acid (vitamin C) [Vitamin C] 500 mg Tablet
500 mg PO DAILY
Discontinued
terazosin 2 mg Capsule
2 mg PO QPM
metoprolol succinate 25 mg Tablet Extended Release 24 Hr
25 mg PO DAILY Qty: 30 0RF
hydralazine 25 mg Tablet
25 mg PO BID
Discharge Orders:
Discharge Patient (As Directed); Ordered 03/03/25
Ordered By: Yimi Brewer
Discharge Date and Time
Print Language: MAORI
[2025-03-03 12:29] LABS: Glucose - Point of Care 200 mg/dl (70-99)
--- NOTE | 2025-03-03 12:35 | W.PN.CARDCBS ---
Today's Communication / Plan
-
Stable cardiac status
Outpatient follow-up scheduled for this week
Impression / Plan
-
PCP: Dr. Cornelius
Cardiology: Dr. Juno Miranda
Impression:
Admitted with confusion, CUEVAS and HTN 02/27/25
HTN emergency
CUEVAS
Confusion PM
h/o HTN
Recent admission for Tikosyn load 02/12/25 until 02/15/25
Recent admission for syncope 01/29/2025 until 02/01/25
h/o 7 second conversion pause, spontaneously converted with Tikosyn load 02/13/25
Persistent Afib
Diagnosed at time of colonoscopy 12/27/2024
Paroxysmal typical atrial flutter
Chronic Eliquis OAC
Mild to moderate peak/mean 34/18 mmHg and DEBBIE 1.4 cm sq
CAD
s/p rotational atherectomy LAD 1992
s/p Xience AN to RCA and PLB 2008
s/p right CEA 11/2012
HTN
DM 2
Hyperlipidemia
PAD with claudication
Echo 01/15/2025: EF 55 to 60%, mild MR, mild to moderate peak/mean 34/18 mmHg and DEBBIE 1.4 cm sq, mild aortic regurgitation, mild TR
Plan:
- Admitted with confusion, CUEVAS and HTN 02/27/25 found to be in atrial fibrillation with rapid ventricular response and spontaneously converted to sinus rhythm. Per review of telemetry patient remains in sinus rhythm. Continue Tikosyn 500 mcg BID.
-Beta-mario dose decreased secondary to bradycardia
-Continue chronic anticoagulation with Eliquis 5 mg twice a day
-Patient was very hypertensive on admission. Continues to have difficult to control hypertension during recent admissions and as outpatient. Multiple medication changes made over the last 4 weeks.
-CTA of abdomen with moderate renal artery stenosis which may be contributing to hypertension
-Continue candesartan 32 mg daily
-Amlodipine started this admission, cont 5 mg twice a day
-Terazosin increased to 5 mg at bedtime (previously was on 2 mg)
-Spironolactone added
-Unable to uptitrated metoprolol secondary to bradycardia
-Hydralazine discontinued secondary to confusion and headache after initiation of medication
-Cannot add HCTZ due to interaction with Tikosyn. Patient also reports previous adverse reaction with chlorthalidone back in 2019.
-Appreciate neurology input. MRI of brain was negative for stroke
Plan discussed with patient and patient's family at bedside
Stable cardiac status, we will sign off, please recall as needed
Outpatient follow-up scheduled for this week in our office
Recommended cardiac meds:
-Candesartan 32 mg daily
-Amlodipine 5 mg twice a day
-Terazosin 5 mg at bedtime
-Spironolactone 25mg daily
-Toprol XL 12.5 mg daily
-Tikosyn 500 mcg BID.
-Eliquis 5 mg twice a day
[facility] 02/28/2025:
Patient came to [facility] ER last night with CUEVAS and cardiology has been consulted for recurrence of Afib. Patient was admitted to 01/29/25 until 02/01/25 with syncope in the setting of COVID and at that time his previous doses of amlodipine 5 mg daily
and candesartan 32 mg daily were stopped. Patient was seen by Dr. Miranda in the office on 02/08/2025 and BP was 140/70 on Toprol XL 50 mg BID. Patient was also noted to be in A-fib with RVR and was recommended elective admission the following week
for Tikosyn loading. Patient was then admitted for Tikosyn loading 02/12/25 until 02/15/2025 and during that admission patient had a 7-second conversion pause and was bradycardic so Toprol XL was reduced to 25 mg daily. Also during that admission
losartan 25 mg daily was added for increasing BP. Patient was discharged to home and call the office on 02/21/2025 to report increased BP at which time Dr. Miranda instructed the patient to stop losartan and resume his previous dose of candesartan,
patient was to monitor BP and call our office back. Patient called the office back on 02/25/2025 to report that he was still hypertensive and hydralazine 25 mg BID was added to his regimen. Patient reports that after taking the first dose of
hydralazine on the night of 02/26/25 he was disoriented and his describes that he was unable to use the glucometer which he uses on a daily basis and was unable to use his Kartia monitor which he also uses on a daily basis. No focal or
lateralizing weakness. The next day the patient woke up and after eating breakfast he was able to take another dose of hydralazine and felt that shortly after he started with a headache that lasted all day long. In the evening the patient checked
his rhythm using his Kartia monitor and he was in A-fib with RVR and given the ongoing headache, the reaction to hydralazine the night before and the A-fib seen on the monitor the patient's brought him to the ER. Eventually patient
spontaneously converted to SR without any clear symptomatic difference.
Progress Note - Cloth Hand
Subjective
Date of Service: March 03, 2025
No acute overnight events. No cardiac complaints this a.m. Blood pressure better controlled today.
Objective
Labs:
03/01/25 05:25
03/03/25 00:36
Labs
Hgb 13.3 g/dL (13.0-18.0) 03/01/25 05:25
Hct 37.7 % (39.0-52.0) L 03/01/25 05:25
Plt Count 177 10^3/uL (130-400) 03/01/25 05:25
Sodium 139 mmol/L (135-145) 03/03/25 00:36
Potassium 4.3 mmol/L (3.5-5.1) 03/03/25 00:36
BUN 26 mg/dl (9-20) H 03/03/25 00:36
Creatinine 1.0 mg/dL (0.7-1.3) 03/03/25 00:36
Glucose 119 mg/dl (70-99) H 03/03/25 00:36
Vital Signs and I&O:
Vital Signs
Temp Pulse Resp BP Pulse Ox
97.8 F 58 18 153/56 94
03/03/25 11:30 03/03/25 11:30 03/03/25 11:30 03/03/25 11:30 03/03/25 11:30
Vital Signs
Temp Pulse Resp BP Pulse Ox
97.8 F 58 18 153/56 94
03/03/25 11:30 03/03/25 11:30 03/03/25 11:30 03/03/25 11:30 03/03/25 11:30
Intake & Output
03/01/25 03/02/25 03/03/25 03/04/25
06:59 06:59 06:59 06:59
Intake Total 480 / 480 720 / 720 1919
Balance 480 / 480 720 / 720 1919
Physical Exam
Physical Exam
Gen: NAD, AAOx3
HEENT: NC/AT, sclera anicteric
Neck: No JVD
CV: RRR, NL s1/s2, no M/R/G
Lungs: CTAB
Abd: S/ND
Ext: No LE edema
Skin: Warm, dry
Neuro: Non-focal
[2025-03-03] MEDS: NOVOLOG FLEXPEN-LOW RESISTANCE 2 UNITS SC (12:58)
--- NOTE | 2025-03-03 15:08 | CM ---
Met with patient at bedside
Plan: Discharge to home today; no needs; at bedside and will transport home
--- NOTE | 2025-03-04 13:39 | PN.CDI ---
CDI
- -
CDI:
Physician Documentation Request
Admit Date: 02/28/25 16:05
Dear Doctor Osman,
Please review the following and provide your response in the progress notes.
Clinical Indicators:
- 03/03 DC Summary 'presented with headache, confusion, and recurrent A-fib'
- 03/01 H&P 'At the time of my examination, he is resting comfortably. He has had no confusion since last PM.'
- 'Headache / Confusion'
- per 03/01 Neurology 'Mild encephalopathy (vascular, metabolic)'
Please specify the known or suspected type of the documented encephalopathy/confusion:
Metabolic
Hypertensive
Due to a specified condition (such as UTI, hyponatremia, CVA etc)
Other
Use of terms such as suspected, likely, concern for, or probable (associated with a specific diagnosis that is being evaluated, monitored, or treated as if it exists) are acceptable and can be coded in the inpatient setting, when documented at the
time of discharge.
Thank you,
Jf Bailey RN
CDI Specialist
Please use your independent medical judgment in providing your response.
== END 2025-03-03 15:08 | disposition home or self-care (01) | DRG 305 ==
LOC: 3 WEST ACU 16:05
PROVIDERS: Nurse Practitioner Family; Registered Nurse; ADMITTING PHYSICIAN Hospitalist; ATTENDING PHYSICIAN Internal Medicine; CONSULT PHYSICIAN Internal Medicine Cardiovascular Disease; CONSULT PHYSICIAN Psychiatry & Neurology Neurology; EMERGENCY PHYSICIAN Student in an Organized Health Care Education/Training Program; FAMILY PHYSICIAN Family Medicine
DX: I16.1 Hypertensive emergency (principal); I48.3 Typical atrial flutter; I67.4 Hypertensive encephalopathy; E11.51 Type 2 diabetes mellitus with diabetic peripheral angiopathy without gangrene; I25.10 Atherosclerotic heart disease of native coronary artery without angina pectoris; I48.0 Paroxysmal atrial fibrillation; I10 Essential (primary) hypertension; Z79.01 Long term (current) use of anticoagulants; Z79.84 Long term (current) use of oral hypoglycemic drugs; I70.1 Atherosclerosis of renal artery; Z86.0100 Personal history of colon polyps, unspecified; Z95.5 Presence of coronary angioplasty implant and graft; Z87.891 Personal history of nicotine dependence; E78.00 Pure hypercholesterolemia, unspecified; Z79.82 Long term (current) use of aspirin; Z79.899 Other long term (current) drug therapy; Z86.16 Personal history of COVID-19; E55.9 Vitamin D deficiency, unspecified; I49.3 Ventricular premature depolarization; N40.0 Benign prostatic hyperplasia without lower urinary tract symptoms
CPT/HCPCS: 70450; 70551; 74174; 80048; 80053; 82607; 82962; 83735; 84443; 85025; 85027; 85652; 93005; 99285; Q9967

== ENCOUNTER → 2025-08-16 08:12 | Outpatient (REF) | payer MEDICARE, OTHER, SELFPAY | LOC: RAD 08:12 | PROVIDERS: ATTENDING PHYSICIAN Surgery Vascular Surgery; FAMILY PHYSICIAN Family Medicine | DX: I70.1 Atherosclerosis of renal artery (principal) | CPT/HCPCS: 93975 ==